=== PATIENT | male | born 1970 | race American Indian/Alaskan Native ===

== ENCOUNTER → 2020-03-13 09:07 | Outpatient (BNVA) | payer OTHER, SELFPAY | PROVIDERS: Visit Provider Internal Medicine | DX: G56.00 Carpal tunnel syndrome, unspecified upper limb (principal) | CPT/HCPCS: 99203 ==

== ENCOUNTER → 2020-03-20 08:46 | Outpatient (BNVA) | payer OTHER, SELFPAY | PROVIDERS: Visit Provider Internal Medicine | DX: G56.02 Carpal tunnel syndrome, left upper limb (principal) | CPT/HCPCS: 99213 ==

== ENCOUNTER → 2020-04-18 10:07 | Outpatient (BNVA) | payer OTHER, SELFPAY | PROVIDERS: Visit Provider Physician Assistant Medical | DX: G56.02 Carpal tunnel syndrome, left upper limb (principal) | CPT/HCPCS: 99213 ==

== ENCOUNTER → 2020-04-30 11:51 | Outpatient (BNVA) | payer OTHER, SELFPAY | PROVIDERS: PCP Internal Medicine; Visit Provider Internal Medicine | DX: G56.02 Carpal tunnel syndrome, left upper limb (principal) | CPT/HCPCS: 73110; 73130; 99214 ==

== ENCOUNTER 2020-05-12 11:00 | Outpatient (RCR) | payer OTHER, SELFPAY ==
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
--- NOTE | 2020-06-09 14:13 | MHC.OT.DC ---
[address] [phone] F: [phone] Occupational Therapy Discharge Note Provider: Regine Portillo Diagnosis: TRAUMATIC L CTS Date of Surgery: Date of Evaluation: 04/23/20 Date of Discharge: 06/09/20 Treatments to Date: 5 Cancellations to Date: No Shows to Date: 1 Discharge Status: Achieved Goals Improved Function Independent with HEP Patient Elected to Stop Discharge Summary: MR KNIGHT HAD PROGRESSED WELL WITH HIS OT GOALS DURING HIS OT RX SESSIONS. HE WAS MOTIVATED AND RECEPTIVE TO PATIENT EDUCATION. A CUSTOM ORTHOSIS WAS FABRICATED FOR JOINT PROTECTION. HE HAD EMERGING NERVE REGENERATION, YET AT TIME OF DISCHARGE HE CONTINUED TO REPORT SOME NUMBNESS IN THE L MIDDLE FINGER. HE WAS INDEPENDENT WITH HIS HEP AND IMPROVED HIS SHUTTLE FILLER STRENGTH. NO FURTHER OT WARRANTED AT THIS TIME. D/C OT SERVICES. Electronically Signed By: REGULO ROSS OTR/L Reviewed/agree with student documentation: N/A Therapist: Please Sign and return to therapist, thank you for your referral.
== END 2020-06-09 14:14 | disposition other institution (70) ==
LOC: HO.OT 11:00
PROVIDERS: PCP Internal Medicine; Visit Provider Physician Assistant Medical
DX: G56.02 Carpal tunnel syndrome, left upper limb (principal)
CPT/HCPCS: 29125; 97035; 97110; 97166

== ENCOUNTER → 2020-05-12 11:36 | Outpatient (BNVA) | payer OTHER, SELFPAY | PROVIDERS: PCP Internal Medicine; Visit Provider Physician Assistant | DX: G56.02 Carpal tunnel syndrome, left upper limb (principal) | CPT/HCPCS: 99213 ==

== ENCOUNTER 2020-05-22 07:21 | Outpatient (REF) | payer OTHER, SELFPAY ==
[2020-05-22 07:46] LABS: MANUAL DIFF FLAG NO
[2020-05-22 07:50] LABS: Basophils Percent Auto 0.6 % (0-2); Eosinophils Absolute Auto 0.1 X10*3/uL (0.0-0.4); Hematocrit 48.9 % (42-52); Hemoglobin 17.2 g/dl (14.0-18.0); Imm Gran Abs Auto 0.02 X10*3/uL (0.00-0.03); Imm Gran Pct Auto 0.4 % (0.0-0.4); Lymphocytes Absolute Auto 1.5 X10*3/uL (1.2-4.9); Lymphocytes Percent Auto 30.5 % (20-40); Mean Corpuscular HGB Conc 35.2 g/dl (31.0-36.0); Mean Corpuscular Hemoglobin 30.5 pg (27.0-33.0); Mean Corpuscular Volume 86.7 fL (80-98); Mean Platelet Volume 9.6 fL (9.4-12.4); Monocytes Absolute Auto 0.4 X10*3/uL (0.1-1.2); Monocytes Percent Auto 8.6 % (2-11); Neutrophils Absolute Auto 2.9 X10*3/uL (2.0-8.3); Neutrophils Percent Auto 57.9 % (45-73); Platelet Count 232 X10*3/uL (160-400); Red Blood Count 5.64 X10*6/uL (4.60-5.80); Red Cell Distribution Width 11.9 % (11.0-16.0)
[2020-05-22 08:01] LABS: Estimated Average Glucose 269 mg/dL
[2020-05-22 08:12] LABS: Alanine Aminotransferase 31 U/L (0-40); Albumin Level 4.1 g/dL (3.5-5.0); Alkaline Phosphatase 110 U/L (39-117); Anion Gap 12 (12-20); Aspartate Amino Transferase 17 U/L (5-37); Bilirubin Direct 0.2 mg/dL (0.0-0.5); Bilirubin Total 0.5 mg/dL (0.0-1.0); Blood Urea Nitrogen 14 mg/dL (9-16); Calcium 8.9 mg/dL (8.4-10.2); Carbon Dioxide 27 mmol/L (22-29); Chloride 102 mmol/L (96-108); Cholesterol 198 mg/dL; Estimated Glomerular Filt Rate > 60; Glucose Fasting 266 mg/dL (60-99); HDL Cholesterol 54 mg/dL; LDL Cholesterol Calculated 126 mg/dl; Potassium 4.2 mmol/l (3.3-5.1); Sodium 137 mmol/L (135-145); Total Protein 7.1 g/dL (6.5-8.0); Triglycerides 91 mg/dL
== END 2020-05-22 07:22 | disposition home or self-care (01) ==
LOC: HO.LAB 07:21
PROVIDERS: Visit Provider Nurse Practitioner Family
DX: Z00.00 Encounter for general adult medical examination without abnormal findings (principal)
CPT/HCPCS: 36415; 80053; 80061; 80076; 82248; 83036; 85025

== ENCOUNTER → 2020-05-28 09:23 | Outpatient (BNVA) | payer OTHER, SELFPAY | PROVIDERS: PCP Internal Medicine; Visit Provider Physician Assistant Medical | DX: G56.02 Carpal tunnel syndrome, left upper limb (principal) | CPT/HCPCS: 99213 ==

== ENCOUNTER → 2020-06-11 08:55 | Outpatient (BNVA) | payer OTHER, SELFPAY | PROVIDERS: PCP Internal Medicine; Visit Provider Physician Assistant Medical | DX: G56.02 Carpal tunnel syndrome, left upper limb (principal) | CPT/HCPCS: 99213 ==

== ENCOUNTER 2020-06-23 13:30 | Outpatient (REF) | payer OTHER, SELFPAY ==
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
== END 2020-06-23 13:31 | disposition home or self-care (01) ==
LOC: HO.MRI 13:30
PROVIDERS: Visit Provider Internal Medicine
DX: M25.532 Pain in left wrist (principal)
CPT/HCPCS: 73221

== ENCOUNTER 2020-06-25 08:07 | Outpatient (REF) | payer OTHER, SELFPAY ==
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
== END 2020-06-25 08:08 | disposition home or self-care (01) ==
LOC: HO.NEURO 08:07
PROVIDERS: Visit Provider Physician Assistant Medical
DX: G56.02 Carpal tunnel syndrome, left upper limb (principal)
CPT/HCPCS: 95885; 95910; 95913

== ENCOUNTER → 2020-07-02 10:15 | Outpatient (BNVA) | payer OTHER, SELFPAY | PROVIDERS: Visit Provider Orthopaedic Surgery | DX: G56.02 Carpal tunnel syndrome, left upper limb (principal); S63.8X2A Sprain of other part of left wrist and hand, initial encounter | CPT/HCPCS: 99202 ==

== ENCOUNTER 2020-07-24 11:46 | Day surgery (SDC) | payer OTHER, SELFPAY ==
[2020-07-23 09:41] VITALS: BMI 33.4
[2020-07-24 12:59] LABS: Glucose, Whole Blood 244 mg/dL (60-115)
[2020-07-24 13:03] VITALS: BP 132/89; PULSE 114; RESP 18; TEMP 36.6; O2SAT 95
[2020-07-24 14:43] VITALS: BP 134/88; PULSE 86; RESP 18; TEMP 36.7; O2SAT 97
--- NOTE | 2020-07-24 14:48 | MHC.SHP ---
Pre-Procedural Eval Section B Chief Complaint: carpal tunnel Allergies: Allergies Allergy/AdvReac Type Severity Reaction Status Date / Time aspirin [Aspirin] Allergy Unknown UNKNOWN Verified 07/02/20 10:55 lisinopril Allergy Unknown Cough Verified 07/02/20 10:55 penicillin V Allergy Unknown unknown Verified 07/02/20 10:55 Penicillins Allergy Unknown UNKNOWN Verified 07/02/20 10:55 Plan I have reviewed the history and physical and performed a pertinent physical examination on my patient. No changes have occurred unless specified.
--- NOTE | 2020-07-24 14:48 | W.PM.OPN ---
Operative Note Operative Note Date of Service: 07/24/20 Narrative: Preop diagnosis: 1. Left Carpal tunnel syndrome Postop diagnosis: 1. Left Carpal tunnel syndrome Procedure: 1. Left Carpal tunnel release Surgeon: Lilly Gross MD Anesthesia: local block using 1% lidocaine with epinephrine Findings: Thickened transverse carpal ligament. EBL: Less than 5 mL Specimens: None Complications: None Disposition: Brought to recovery room in stable condition Plan: Follow-up for 7-10 days for wound check and suture removal Indications: The patient is 50 years old, with left carpal tunnel syndrome that has been unresponsive to nonoperative management. The risks and benefits of operative treatment including but not limited to risk of damage to blood vessels, nerves, tendons, infection, persistent pain, persistent symptoms, or possible need for additional surgery were discussed with the patient and the patient wishes to proceed with surgery. Procedure: Once consent was obtained a local block was performed using a combination of 1% lidocaine with epinephrine. The patient was then brought back to the operating suite and placed on the operative table in supine position. A tourniquet was applied to the proximal aspect of the left upper extremity and the limb was prepped and draped in a standard surgical fashion. Once assured that we had a good block, a 1.5 cm longitudinal incision was made centered over the left carpal tunnel. The incision was made through the skin to the subcutaneous tissues using a #15 blade. Dissection was made down to the level of the transverse carpal ligament with care being taken to protect the palmar cutaneous nerve. Once the transverse carpal ligament was clearly visualized, a longitudinal incision was made in the transverse carpal ligament 1st using a #15 blade, then using tenotomy scissors under direct visualization. Care was taken to look for and protect the motor branch of the median nerve when seen in this area. Once satisfied with our carpal tunnel release the wound was copiously irrigated with normal saline and hemostasis was obtained with a brief period of local pressure. The skin edges were reapproximated with some 5.0 nylon suture material and a sterile dressing was applied. The patient appears to have tolerated the procedure well and with no complications. All digits were well vascularized at the conclusion of the case.
== END 2020-07-24 14:59 | disposition home or self-care (01) ==
PROVIDERS: PCP Internal Medicine; Visit Provider Orthopaedic Surgery
PROC: (CPT 64721; principal; 2020-07-24 13:10)
DX: G56.02 Carpal tunnel syndrome, left upper limb (principal); I10 Essential (primary) hypertension; E11.9 Type 2 diabetes mellitus without complications; Z79.84 Long term (current) use of oral hypoglycemic drugs; Z79.899 Other long term (current) drug therapy; Z88.0 Allergy status to penicillin; Z88.8 Allergy status to other drugs, medicaments and biological substances
CPT/HCPCS: 64721; 82947

== ENCOUNTER → 2020-08-04 09:56 | Outpatient (BNVA) | payer OTHER, SELFPAY | PROVIDERS: PCP Internal Medicine; Visit Provider Orthopaedic Surgery | DX: Z48.811 Encounter for surgical aftercare following surgery on the nervous system (principal); Z86.69 Personal history of other diseases of the nervous system and sense organs | CPT/HCPCS: 99212 ==

== ENCOUNTER 2020-09-05 08:48 | Outpatient (REF) | payer OTHER, SELFPAY ==
[2020-09-05 09:50] LABS: MANUAL DIFF FLAG NO
[2020-09-05 09:51] LABS: Appearance Urine CLEAR; Color Urine YELLOW; Glucose Urine UA 100 MG/DL (NEG); Leukocyte Esterase Urine NEG (NEG); Nitrite Urine NEG (NEG); Specific Gravity - Urine 1.025 (1.005-1.025); Urine Blood NEG (NEG); Urine Ketones NEG (NEG); Urine Protein NEG (NEG-TRACE)
[2020-09-05 09:56] LABS: Basophils Percent Auto 0.4 % (0-2); Eosinophils Absolute Auto 0.1 X10*3/uL (0.0-0.4); Eosinophils Percent Auto 1.8 % (0-4); Hematocrit 49.1 % (42-52); Imm Gran Abs Auto 0.02 X10*3/uL (0.00-0.03); Imm Gran Pct Auto 0.4 % (0.0-0.4); Lymphocytes Absolute Auto 1.4 X10*3/uL (1.2-4.9); Lymphocytes Percent Auto 25.9 % (20-40); Mean Corpuscular HGB Conc 34.6 g/dl (31.0-36.0); Mean Corpuscular Hemoglobin 30.2 pg (27.0-33.0); Mean Corpuscular Volume 87.2 fL (80-98); Mean Platelet Volume 9.7 fL (9.4-12.4); Monocytes Absolute Auto 0.4 X10*3/uL (0.1-1.2); Monocytes Percent Auto 7.4 % (2-11); Neutrophils Absolute Auto 3.5 X10*3/uL (2.0-8.3); Neutrophils Percent Auto 64.1 % (45-73); Platelet Count 295 X10*3/uL (160-400); Red Blood Count 5.63 X10*6/uL (4.60-5.80); Red Cell Distribution Width 12.1 % (11.0-16.0); White Blood Count 5.4 X10*3/uL (4.8-10.8)
[2020-09-05 10:24] LABS: Alanine Aminotransferase 32 U/L (0-40); Albumin Level 4.2 g/dL (3.5-5.0); Alkaline Phosphatase 94 U/L (39-117); Anion Gap 14 (12-20); Aspartate Amino Transferase 22 U/L (5-37); Bilirubin Total 0.8 mg/dL (0.0-1.0); Blood Urea Nitrogen 11 mg/dL (9-16); Carbon Dioxide 27 mmol/L (22-29); Chloride 101 mmol/L (96-108); Cholesterol 198 mg/dL; Estimated Glomerular Filt Rate > 60; Glucose Fasting 199 mg/dL (60-99); HDL Cholesterol 52 mg/dL; LDL Cholesterol Calculated 125 mg/dl; Potassium 4.7 mmol/L (3.3-5.1); Sodium 137 mmol/L (135-145); Total Protein 7.3 g/dL (6.5-8.0); Triglycerides 106 mg/dL
[2020-09-05 10:46] LABS: Estimated Average Glucose 217 mg/dL; Hemoglobin A1c % 9.2 %; TSH reflex Free T4 0.77 uIU/mL (0.32-4.0)
[2020-09-05 10:58] LABS: Creatinine Urine 186.01 mg/dL; Microalbum/Creatinine Ratio Ur 9.6 ug/mg cr
== END 2020-09-05 08:49 | disposition home or self-care (01) ==
LOC: HO.LAB 08:48
PROVIDERS: PCP Internal Medicine; Visit Provider Internal Medicine
DX: E11.65 Type 2 diabetes mellitus with hyperglycemia (principal); I10 Essential (primary) hypertension; E66.9 Obesity, unspecified
CPT/HCPCS: 36415; 80053; 80061; 81003; 82043; 83036; 84443; 85025

== ENCOUNTER 2021-08-21 07:47 | Outpatient (REF) | payer OTHER, SELFPAY ==
[2021-08-21 08:27] LABS: MANUAL DIFF FLAG NO
[2021-08-21 08:54] LABS: Basophils Percent Auto 0.3 % (0-2); Eosinophils Absolute Auto 0.2 X10*3/uL (0.0-0.4); Eosinophils Percent Auto 3.4 % (0-4); Hematocrit 49.8 % (42.0-52.0); Hemoglobin 17.1 g/dl (14.0-18.0); Imm Gran Abs Auto 0.02 X10*3/uL (0.00-0.03); Imm Gran Pct Auto 0.3 % (0.0-0.4); Lymphocytes Absolute Auto 1.2 X10*3/uL (1.2-4.9); Lymphocytes Percent Auto 20.7 % (20-40); Mean Corpuscular HGB Conc 34.3 g/dl (31.0-36.0); Mean Corpuscular Hemoglobin 29.6 pg (27.0-33.0); Mean Corpuscular Volume 86.3 fL (80.0-98.0); Mean Platelet Volume 9.7 fL (9.4-12.4); Monocytes Absolute Auto 0.5 X10*3/uL (0.1-1.2); Monocytes Percent Auto 8.4 % (2-11); Neutrophils Absolute Auto 3.9 x10*3/uL (2.0-8.3); Neutrophils Percent Auto 66.9 % (45-73); Platelet Count 254 X10*3/uL (160-400); Red Blood Count 5.77 X10*6/uL (4.60-5.80); Red Cell Distribution Width 11.8 % (11.0-16.0); White Blood Count 5.8 X10*3/uL (4.8-10.8)
[2021-08-21 09:12] LABS: Estimated Average Glucose 255 mg/dL; Hemoglobin A1c % 10.5 %
[2021-08-21 09:21] LABS: Alanine Aminotransferase 26 U/L (0-40); Alkaline Phosphatase 108 U/L (39-117); Anion Gap 10 (12-20); Aspartate Amino Transferase 18 U/L (5-37); Bilirubin Total 0.8 mg/dL (0.0-1.0); Blood Urea Nitrogen 11 mg/dL (9-16); Calcium 9.5 mg/dL (8.4-10.2); Carbon Dioxide 30 mmol/L (22-29); Chloride 101 mmol/L (96-108); Cholesterol 191 mg/dL; Estimated Glomerular Filt Rate > 60; Glucose Fasting 243 mg/dL (60-99); HDL Cholesterol 52 mg/dL; LDL Cholesterol Calculated 121 mg/dl; Sodium 136 mmol/L (135-145); Total Protein 7.1 g/dL (6.5-8.0); Triglycerides 94 mg/dL
[2021-08-21 09:43] LABS: TSH reflex Free T4 0.96 uIU/mL (0.32-4.0)
[2021-08-21 09:56] LABS: Appearance Urine CLEAR; Color Urine YELLOW; Glucose Urine UA 500 MG/DL (NEG); Leukocyte Esterase Urine NEG (NEG); Nitrite Urine NEG (NEG); PH 5.5 (5.0-8.0); Specific Gravity - Urine >= 1.030 (1.005-1.025); Urine Blood NEG (NEG); Urine Ketones 5 MG/DL (NEG); Urine Protein TRACE MG/DL (NEG-TRACE)
[2021-08-21 18:25] LABS: Creatinine Urine 302.09 mg/dL; Microalbum/Creatinine Ratio Ur 14.8 ug/mg cr
== END 2021-08-21 07:48 | disposition home or self-care (01) ==
LOC: HO.LAB 07:47
PROVIDERS: PCP Internal Medicine; Visit Provider Internal Medicine
DX: E11.65 Type 2 diabetes mellitus with hyperglycemia (principal); E66.9 Obesity, unspecified; K21.9 Gastro-esophageal reflux disease without esophagitis; I10 Essential (primary) hypertension
CPT/HCPCS: 36415; 80053; 80061; 81003; 82043; 83036; 84443; 85025

== ENCOUNTER 2022-02-18 09:30 | Outpatient (REF) | payer OTHER, SELFPAY ==
[2022-02-18 09:59] LABS: MANUAL DIFF FLAG NO
[2022-02-18 10:34] LABS: Basophils Percent Auto 0.5 % (0-2); Eosinophils Absolute Auto 0.1 X10*3/uL (0.0-0.4); Eosinophils Percent Auto 2.1 % (0-4); Hematocrit 50.5 % (42.0-52.0); Hemoglobin 17.9 g/dl (14.0-18.0); Imm Gran Abs Auto 0.02 X10*3/uL (0.00-0.03); Imm Gran Pct Auto 0.3 % (0.0-0.4); Lymphocytes Absolute Auto 0.8 X10*3/uL (1.2-4.9); Lymphocytes Percent Auto 12.8 % (20-40); Mean Corpuscular HGB Conc 35.4 g/dl (31.0-36.0); Mean Corpuscular Hemoglobin 30.8 pg (27.0-33.0); Mean Corpuscular Volume 86.8 fL (80.0-98.0); Mean Platelet Volume 9.9 fL (9.4-12.4); Monocytes Absolute Auto 0.6 X10*3/uL (0.1-1.2); Monocytes Percent Auto 9.4 % (2-11); Neutrophils Absolute Auto 4.4 x10*3/uL (2.0-8.3); Neutrophils Percent Auto 74.9 % (45-73); Platelet Count 235 X10*3/uL (160-400); Red Blood Count 5.82 X10*6/uL (4.60-5.80); Red Cell Distribution Width 11.5 % (11.0-16.0); White Blood Count 5.9 X10*3/uL (4.8-10.8)
[2022-02-18 11:20] LABS: Alanine Aminotransferase 23 U/L (0-40); Albumin Level 4.1 g/dL (3.5-5.0); Alkaline Phosphatase 115 U/L (39-117); Anion Gap 14 (12-20); Aspartate Amino Transferase 17 U/L (5-37); Bilirubin Total 0.6 mg/dL (0.0-1.0); Blood Urea Nitrogen 11 mg/dL (9-16); Carbon Dioxide 26 mmol/L (22-29); Chloride 102 mmol/L (96-108); Cholesterol 155 mg/dL; Estimated Glomerular Filt Rate > 60; Glucose Fasting 188 mg/dL (60-99); HDL Cholesterol 52 mg/dL; LDL Cholesterol Calculated 85 mg/dl; Potassium 4.2 mmol/L (3.3-5.1); Sodium 138 mmol/L (135-145); Total Protein 6.9 g/dL (6.5-8.0); Triglycerides 93 mg/dL
[2022-02-18 11:22] LABS: Appearance Urine Clear; Color Urine Yellow; Glucose Urine UA 250 mg/dL (Negative); Leukocyte Esterase Urine Negative (Negative); Nitrite Urine Negative (Negative); PH 5.5 (5.0-9.0); Specific Gravity - Urine 1.025 (1.005-1.025); Urine Blood Negative (Negative); Urine Ketones Trace mg/dL (Negative); Urine Protein Negative (Neg-Trace)
[2022-02-18 11:49] LABS: Prostate Specific Antigen 0.94 ng/mL (<0.05-4.0); TSH reflex Free T4 0.85 uIU/mL (0.32-4.0); Vitamin D 25-OH Total 18.6 ng/mL (>30)
[2022-02-18 12:02] LABS: Creatinine Urine 220.83 mg/dL
[2022-02-20 12:26] LABS: C Peptide 2.79 ng/mL (0.80-3.85)
[2022-02-23 20:02] LABS: Glutamic acid decarboxylase Ab <5 IU/mL (<5)
== END 2022-02-18 09:31 | disposition home or self-care (01) ==
LOC: HO.LAB 09:30
PROVIDERS: PCP Internal Medicine; Visit Provider Internal Medicine
DX: Z00.00 Encounter for general adult medical examination without abnormal findings (principal); Z12.5 Encounter for screening for malignant neoplasm of prostate; I10 Essential (primary) hypertension; E78.00 Pure hypercholesterolemia, unspecified; E11.9 Type 2 diabetes mellitus without complications; N40.0 Benign prostatic hyperplasia without lower urinary tract symptoms; E55.9 Vitamin D deficiency, unspecified
CPT/HCPCS: 36415; 80053; 80061; 81003; 82043; 82306; 84153; 84443; 84681; 85025; 86341

== ENCOUNTER 2022-02-20 13:37 | Emergency (ER) | payer OTHER, SELFPAY ==
--- NOTE | ~2022-02-20 | XR_ITS ---
EXAMINATION: XR CHEST CLINICAL INFORMATION: Cough for 3 days COMPARISON: None TECHNIQUE: Frontal view of the chest was obtained. FINDINGS: Normal symmetric lung volumes. No parenchymal consolidation. No pleural effusion. No pneumothorax. Cardiomediastinal silhouette and pulmonary vascularity are within normal limits. No acute osseous abnormalities. XR/XR chest 1V IMPRESSION: No acute findings
[2022-02-20 13:45] VITALS: BP 149/98; PULSE 90; TEMP 36.5; O2SAT 96; BMI 32.5
[2022-02-20 14:45] LABS: Influenza A PCR NEGATIVE (Negative); Influenza B PCR NEGATIVE (Negative); Resp Syncy Virus RNA Qual PCR NEGATIVE (Negative); SARS COV2 PCR INHOUSE NEGATIVE (Negative)
--- NOTE | 2022-02-20 15:41 | ED.URI ---
HPI - URI/Sore Throat General Chief Complaint: Upper Respiratory Symptoms Stated Complaint: cough body aches chest hurts Time Seen by Provider: 02/20/22 15:19 Source: patient and family Mode of arrival: ambulatory Limitations: no limitations History of Present Illness HPI Narrative: 52-year-old male came in for evaluation of coughing and diffuse chest pain with coughing. Patient's symptoms started 4 days ago, generalized body aches, coughing, chest soreness with coughing, white sputum produced with coughing. No sick contacts, no recent travel, patient is a smoker. Related Data Previous Rx's Medication Instructions Recorded Farxiga 10 mg tablet 10 mg PO QAM 90 days #90 tabs 02/03/22 (dapagliflozin) atorvastatin 10 mg tablet 10 mg PO BEDTIME #90 tabs 02/03/22 glipizide 5 mg tablet, extended 5 mg PO DAILY #90 tabs 02/03/22 release 24 hr losartan 50 mg tablet 50 mg PO DAILY #90 tabs 02/03/22 omeprazole 20 mg capsule,delayed 20 mg PO DAILY #90 caps 02/03/22 release albuterol sulfate 90 mcg/actuation 1 inh inhalation QID PRN shortness 02/20/22 aerosol inhaler of breath or wheezing #8.5 grams azithromycin 250 mg tablet See Rx Instructions PO .COMPLEX #6 02/20/22 (Zithromax Z-Nic) tabs prednisone 20 mg tablet 20 mg PO BID #10 tabs 02/20/22 Allergies Allergy/AdvReac Type Severity Reaction Status Date / Time aspirin [Aspirin] Allergy Unknown UNKNOWN Verified 02/03/22 17:18 lisinopril Allergy Unknown Cough Verified 02/03/22 17:18 penicillin V Allergy Unknown unknown Verified 02/03/22 17:18 Penicillins Allergy Unknown UNKNOWN Verified 02/03/22 17:18 metformin AdvReac Intermediate Diarrhea Verified 02/03/22 17:20 Review of Systems Review of Systems: All other systems are reviewed and are negative Constitutional: Reports as per HPI and Reports no additional constitutional complaints Eyes: Reports as per HPI and Reports no additional eye complaints Reports system reviewed and no additional complaints, except as documented Cardiovascular: Reports as per HPI and Reports no additional cardiovascular complaints Respiratory: Reports as per HPI and Reports no additional respiratory complaints Gastrointestinal: Reports as per HPI and Reports no additional gastrointestinal complaints Genitourinary: Reports no additional female genitourinary complaints Musculoskeletal: Reports no additional musculoskeletal complaints Skin/Breast: Reports system reviewed and no additional complaints, except as docu Psychiatric: Reports no additional psychiatric complaints Endocrine: Reports no additional endocrine complaints Hematologic/Lymphatic: Reports no additional hematologic/lymphatic complaints Allergic/Immunologic: Reports no additional allergic/immunologic complaints Reports system reviewed and no additional complaints, except as documented and Reports Abnormal speech present PMFSH Past Medical History Medical History Benign essential hypertension Diabetes mellitus GERD without esophagitis Obesity (BMI 30-39.9) Pure hypercholesterolemia Smoker Surgical History History of carpal tunnel surgery Family History Family History Mother Diabetes BP (high blood pressure) Brother Myocardial infarction, Onset Age: 41 Father No problems noted. Maternal Grandmother Cancer Sister No problems noted. Son In good health Son In good health Social History Social History Housing: Apartment Alcohol intake: current Alcohol intake frequency: a few times a week Patient Tobacco Use Status: Current everyday Tobacco user Cigarettes Per Day: 6 Second Hand Smoke Exposure: Yes Advance Directives: Yes Advance Directives on File: Yes Advance Directives Date on File: 07/24/20 Current occupational status: employed Cognitive needs: No Hearing needs: No Vision needs: Yes Physical Exam Vital Signs: Vital Signs: Last Vital Signs Temp 97.7 F 02/20/22 13:45 Pulse 90 02/20/22 13:45 BP 149/98 H 02/20/22 13:45 Pulse Ox 96 02/20/22 13:45 O2 Del Method 02/20/22 13:45 BMI result Body Mass Index 32.5 Vital signs have been reviewed as appeared to be correct. Blood pressure normal. Heart rate normal. Respiration rate normal. Temperature normal. Oxygen saturation normal. Appearance: Alert. Oriented X3. No acute distress. Head: Normal external exam. Normocephalic. Atraumatic. No Duran signs noted. No raccoon eyes noted Eyes: PERRLA. EOMI. Conjunctiva and sclera normal. Eyelids normal. ENT: TM's Normal. Pharynx normal. Uvula midline. Moist mucous membranes. No trismus noted. No drooling noted. No muffled voice noted. Neck: Normal inspection. Neck supple. FROM. No adenopathy. Thyroid Normal. No meningeal signs. No neck mass noted. CVS: Normal heart rate and rhythm. Heart sound normal. No murmurs noted. Pulses normal throughout. Respiratory: No respiratory distress. Painless inspiration. Breath sounds normal. Diffuse expiratory wheezing with prolonged expiration. Chest nontender. No accessory muscle usage noted or decreased air movement noted. Abdomen: Soft and nontender. Bowel sounds normal in all 4 quadrants. No distention noted. No organomegaly noted. No visible injury noted. Back: No CVA tenderness. Full range of motion noted. Skin: Skin warm and dry. Normal skin color. Normal skin turgor. No rashes/lesions/lacerations noted. Extremities: No lower extremity edema. Extremities exhibit normal range of motion. Extremities nontender. Neuro: Oriented X 3. Cranial nerve exam: II-XII are grossly intact No motor deficit. No sensory deficit. Reflexes normal. Course Course Course Narrative: 52-year-old male smoker came in with 4 days of coughing and chest tightness physical exam and chest x-ray suggesting acute bronchitis. Will start the patient on Z-Nic/prednisone/bronchodilator. MDM - URI/Sore Throat Lab Data Labs: Lab Results 02/20/22 Range/Units 13:51 Influenza Type A (PCR) NEGATIVE (Negative) Influenza Type B (PCR) NEGATIVE (Negative) RSV RNA Qual (PCR) NEGATIVE (Negative) SARS-CoV-2 RNA (RT-PCR) NEGATIVE (Negative) Discharge Plan Discharge Clinical Impression: Bronchitis Patient Disposition: Home, Self-Care Instructions: Acute Bronchitis (ED) Prescriptions: New azithromycin [Zithromax Z-Nic] 250 mg tablet See Rx Instructions .ROUTE .COMPLEX Qty: 6 0RF Rx Instructions: For 250 mg dose pack: take 500 mg today (day 1), then 250 mg for 4 days (days 2-5) prednisone 20 mg tablet 20 mg PO BID Qty: 10 0RF albuterol sulfate 90 mcg/actuation HFA aerosol inhaler 1 inh inhalation QID PRN (Reason: shortness of breath or wheezing) Qty: 8.5 0RF No Action atorvastatin 10 mg tablet 10 mg PO BEDTIME Qty: 90 1RF losartan 50 mg tablet 50 mg PO DAILY Qty: 90 1RF omeprazole 20 mg capsule,delayed release(DR/EC) 20 mg PO DAILY Qty: 90 1RF glipizide 5 mg tablet extended release 24hr 5 mg PO DAILY Qty: 90 1RF Farxiga 10 mg tablet 10 mg PO QAM 90 Days Qty: 90 1RF Referrals: Gregorio Bhatt MD [Primary Care Provider] -
== END 2022-02-20 15:48 | disposition home or self-care (01) ==
PROVIDERS: Emergency Provider Emergency Medicine; PCP Internal Medicine
DX: J40 Bronchitis, not specified as acute or chronic (principal); Z20.822 Contact with and (suspected) exposure to COVID-19; I10 Essential (primary) hypertension; E11.9 Type 2 diabetes mellitus without complications; E78.00 Pure hypercholesterolemia, unspecified; F17.210 Nicotine dependence, cigarettes, uncomplicated; Z79.02 Long term (current) use of antithrombotics/antiplatelets; Z79.899 Other long term (current) drug therapy
CPT/HCPCS: 0241U; 71045; 99282; 99283

== ENCOUNTER 2022-04-26 20:31 | Emergency (ER) | payer OTHER, SELFPAY ==
--- NOTE | ~2022-04-26 | XR_ITS ---
EXAMINATION: CHEST 2 VIEWS CLINICAL INFORMATION: cough, fever . COMPARISON: 02/20/2022. TECHNIQUE: PA and lateral views of the chest obtained. FINDINGS: The lungs are well expanded. No focal infiltrate, effusion, edema, or pneumothorax. Cardiac and mediastinal silhouettes are within normal limits for technique. No acute bony abnormality seen XR/XR chest 2V IMPRESSION: No evidence of acute disease
[2022-04-26 20:57] VITALS: BP 128/79; PULSE 93; RESP 18; TEMP 38.2; O2SAT 97; BMI 32.5
[2022-04-26 22:22] LABS: COVID-19 Test Negative (Negative); IDNOW Serial# 16C4AD1C; IDNOW Serial# BCCEAD1C; Influenza A Positive (Negative); Influenza B2 Negative (Negative)
[2022-04-26] MEDS: Acetaminophen 325 MG TABLET 650 MG PO (23:39)
--- NOTE | 2022-04-27 00:11 | ED_ITS ---
HPI - General Adult General Chief complaint: Fever Stated complaint: sob,weak,fever,coughing Time Seen by Provider: 04/26/22 23:46 History of Present Illness HPI narrative: Patient complains of fever body aches headache and cough all beginning today, denies any shortness of breath, no chest pain no vomiting Related Data Previous Rx's Medication Instructions Recorded Farxiga 10 mg tablet 10 mg PO QAM 90 days #90 tabs 02/03/22 (dapagliflozin) atorvastatin 10 mg tablet 10 mg PO BEDTIME #90 tabs 02/03/22 glipizide 5 mg tablet, extended 5 mg PO DAILY #90 tabs 02/03/22 release 24 hr losartan 50 mg tablet 50 mg PO DAILY #90 tabs 02/03/22 omeprazole 20 mg capsule,delayed 20 mg PO DAILY #90 caps 02/03/22 release albuterol sulfate 90 mcg/actuation 1 inh inhalation QID PRN shortness 02/20/22 aerosol inhaler of breath or wheezing #8.5 grams azithromycin 250 mg tablet See Rx Instructions PO .COMPLEX #6 02/20/22 (Zithromax Z-Nic) tabs prednisone 20 mg tablet 20 mg PO BID #10 tabs 02/20/22 acetaminophen 500 mg tablet 1,000 mg PO QID PRN pain #30 tabs 04/27/22 ibuprofen 600 mg tablet 600 mg PO Q6H PRN fever or pain 04/27/22 #20 tabs oseltamivir 75 mg capsule (Tamiflu) 75 mg PO Q12H 5 days #10 caps 04/27/22 oxycodone 5 mg tablet 5 mg PO Q6H PRN pain #10 tabs 04/27/22 Allergies Allergy/AdvReac Type Severity Reaction Status Date / Time aspirin [Aspirin] Allergy Unknown UNKNOWN Verified 02/03/22 17:18 lisinopril Allergy Unknown Cough Verified 02/03/22 17:18 penicillin V Allergy Unknown unknown Verified 02/03/22 17:18 Penicillins Allergy Unknown UNKNOWN Verified 02/03/22 17:18 metformin AdvReac Intermediate Diarrhea Verified 02/03/22 17:20 Review of Systems Review of Systems: Positive for fever body aches fatigue and cough as well as a headache Negatives are no dizziness no fainting no feeling faint no confusion no stiff neck no abrupt onset headache no nausea vomiting no diarrhea no numbness weakness or tingling no chest pain no shortness of breath no difficulty swallowing no sore throat no abdominal pain no nausea vomiting or diarrhea no dysuria no skin rash Yes all other systems are reviewed and are negative FORMERLY [facility] Past Medical History Source: nursing notes reviewed Medical History Benign essential hypertension Diabetes mellitus GERD without esophagitis Obesity (BMI 30-39.9) Pure hypercholesterolemia Smoker Surgical History History of carpal tunnel surgery Family History Family History Mother Diabetes BP (high blood pressure) Brother Myocardial infarction, Onset Age: 41 Father No problems noted. Maternal Grandmother Cancer Sister No problems noted. Son In good health Son In good health Social History Social History Housing: Apartment Alcohol intake: current Alcohol intake frequency: a few times a week Patient Tobacco Use Status: Current everyday Tobacco user Cigarettes Per Day: 6 Second Hand Smoke Exposure: Yes Advance Directives: No Advance Directives Date on File: 07/24/20 Current occupational status: employed Cognitive needs: No Hearing needs: No Vision needs: Yes Physical Exam ED Vital Signs: Vital Signs - 24 hr 04/26/22 20:57 Temperature 100.7 F H Pulse Rate 93 Respiratory Rate 18 Blood Pressure 128/79 Pulse Oximetry 97 Oxygen Delivery Method Room Air BMI result Body Mass Index 32.5 General appearance is no acute distress The eyes anicteric no pallor no redness no discharge The nose no sinus tenderness The pharynx is clear without redness swelling or exudate membranes are moist Neck is supple Chest clear to auscultation bilateral Heart no murmur Abdomen soft nontender Extremities full range of motion x4 no edema no calf tenderness or swelling Skin no rash Course Course Course Narrative: Chest x-ray was normal as was physical exam, oxygen saturation 97 respiratory rate 16, lungs were clear Patient was positive for flu and with a history of diabetes i started Tamiflu as it has only been less than a day of symptoms Patient tolerates p.o. and was discharged from hospital Medications Administered Discontinued Medications Generic Name Dose Route Start Last Admin Trade Name Freq PRN Reason Stop Dose Admin Acetaminophen 650 mg 04/26/22 23:32 04/26/22 23:39 Acetaminophen 325 Mg Tablet PO 04/26/22 23:33 650 mg ONCE ONE Administration Oseltamivir Phosphate 75 mg 04/27/22 00:11 04/27/22 00:20 Oseltamivir Phosphate 75 Mg Capsule PO 04/27/22 00:12 75 mg ONCE ONE Administration Oxycodone HCl 5 mg 04/27/22 00:11 04/27/22 00:20 Oxycodone Hcl Immed Release 5 Mg Tablet PO 04/27/22 00:12 5 mg ONCE ONE Administration Medical Decision Making Lab Data MDM Lab Attestation statement: I reviewed the patient's lab results. Labs: Lab Results 04/26/22 04/26/22 Range/Units 21:47 21:47 COVID-19 (DAYAN) Negative (Negative) COVID-19 Clin Com See Note Influenza Type A (SUSHILA) Positive A (Negative) Influenza Type B (SUSHILA) Negative (Negative) Influenza A & B Note See Note Discharge Plan Discharge Clinical Impression: Influenza Patient Disposition: Home, Self-Care Additional Instructions: Testing was positive for the flu Chest x-ray was normal Lungs were clear and vital signs were okay Tamiflu was prescribed for the flu, but does not cure at, but it may relieve symptoms and shorten the course of illness Use Tylenol and/or Motrin for body aches or fever, if body aches are bad you can use the oxycodone Return any time for difficulty breathing, vomiting dehydration any worse condition or any concerns Prescriptions: New oseltamivir [Tamiflu] 75 mg capsule 75 mg PO Q12H 5 Days Qty: 10 0RF acetaminophen 500 mg tablet 1,000 mg PO QID PRN (Reason: pain) Qty: 30 0RF ibuprofen 600 mg tablet 600 mg PO Q6H PRN (Reason: fever or pain) Qty: 20 0RF oxycodone 5 mg tablet 5 mg PO Q6H PRN (Reason: pain) Qty: 10 0RF Rx Instructions: Partial Fill upon patient request. No Action azithromycin [Zithromax Z-Nic] 250 mg tablet See Rx Instructions .ROUTE .COMPLEX Qty: 6 0RF Rx Instructions: For 250 mg dose pack: take 500 mg today (day 1), then 250 mg for 4 days (days 2-5) prednisone 20 mg tablet 20 mg PO BID Qty: 10 0RF albuterol sulfate 90 mcg/actuation HFA aerosol inhaler 1 inh inhalation QID PRN (Reason: shortness of breath or wheezing) Qty: 8.5 0RF atorvastatin 10 mg tablet 10 mg PO BEDTIME Qty: 90 1RF losartan 50 mg tablet 50 mg PO DAILY Qty: 90 1RF omeprazole 20 mg capsule,delayed release(DR/EC) 20 mg PO DAILY Qty: 90 1RF glipizide 5 mg tablet extended release 24hr 5 mg PO DAILY Qty: 90 1RF Farxiga 10 mg tablet 10 mg PO QAM 90 Days Qty: 90 1RF Stand Alone Forms: Work/School Release Interventions: ED Discharge Assessment Last Done: 04/27/22 00:25 Discharge Date/Time: 04/27/22 00:25
[2022-04-27] MEDS: oxyCODONE HCl Immed Release 5 MG TABLET PO (00:20)
[2022-04-27] MEDS: Oseltamivir Phosphate 75 MG CAPSULE PO (00:20)
[2022-04-27 00:25] VITALS: TEMP 37
== END 2022-04-27 00:25 | disposition home or self-care (01) ==
PROVIDERS: Emergency Provider Internal Medicine; PCP Internal Medicine
DX: J10.1 Influenza due to other identified influenza virus with other respiratory manifestations (principal); R06.02 Shortness of breath; R50.9 Fever, unspecified; Z20.822 Contact with and (suspected) exposure to COVID-19; Z79.899 Other long term (current) drug therapy
CPT/HCPCS: 71046; 87502; 87635; 99283

== ENCOUNTER → 2022-06-16 10:17 | Outpatient (BNVA) | payer OTHER, SELFPAY | PROVIDERS: PCP Internal Medicine; Visit Provider Physician Assistant | DX: Z13.89 Encounter for screening for other disorder (principal) ==

== ENCOUNTER 2022-09-02 09:20 | Outpatient (REF) | payer OTHER, SELFPAY ==
--- NOTE | ~2022-09-02 | XR_ITS ---
EXAMINATION: XR ABDOMEN WITH DECUBITUS VIEWS CLINICAL INDICATION: Left lower quadrant pain. COMPARISON: CT abdomen and pelvis dated 05/22/2012; lumbar spine radiographs dated 10/25/2012. TECHNIQUE: 2 AP views of the abdomen and pelvis are submitted. FINDINGS: The bowel gas pattern is normal, with no evidence of ileus or obstruction. No unusual soft tissue calcifications are noted. There is a large right phlebolith, which is unchanged from 10/25/2012. No acute osseous abnormality is seen. There is a mild lumbar levoscoliosis. 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 XR/XR abdomen w decubitus IMPRESSION: Unremarkable examination.
== END 2022-09-02 09:21 | disposition home or self-care (01) ==
LOC: HO.XRAY 09:20
PROVIDERS: PCP Internal Medicine; Visit Provider Internal Medicine
DX: R10.32 Left lower quadrant pain (principal)
CPT/HCPCS: 74021

== ENCOUNTER 2023-01-18 09:24 | Day surgery (SDC) | payer OTHER, SELFPAY ==
[2023-01-14 08:01] VITALS: BMI 33.3
--- NOTE | 2023-01-17 09:18 | P.CONAN_ITS ---
Documented by User: Susan Cochran NP 01/17/23 09:19 HPI - Anesthesia Eval Consult details Narrative: 53yo M for Colonoscopy PMFSH Active Problems Active Problems: All Active Problems (Updated 06/16/22 @ 11:10 by Marija Horne PA-C) Vitamin D deficiency (Acute) Left lower quadrant abdominal pain (Acute) Smoker (Acute) Colon cancer screening (Acute) Pure hypercholesterolemia (Acute) Annual physical exam (Acute) GERD without esophagitis (Acute) Left scapholunate ligament tear (Acute) Carpal tunnel syndrome of left wrist (Acute) Obesity (BMI 30-39.9) (Acute) Benign essential hypertension (Acute) Diabetes mellitus (Acute) Past Medical History Medical History Vitamin D deficiency Smoker Pure hypercholesterolemia GERD without esophagitis Obesity (BMI 30-39.9) Benign essential hypertension Diabetes mellitus Family History Family History Mother Diabetes BP (high blood pressure) Brother Myocardial infarction, Onset Age: 41 Father No problems noted. Maternal Grandmother Cancer Sister No problems noted. Son In good health Son In good health Surgical History Surgical History History of carpal tunnel surgery Social History Social History Housing: Apartment Alcohol intake: current Alcohol intake frequency: a few times a month Patient Tobacco Use Status: Current everyday Tobacco user Cigarettes Per Day: 5 e-Cigarette/Vaping Use: Never Used Second Hand Smoke Exposure: Yes Are you DNR?: No Advance Directives: No Advance Directives Information Provided: Yes Advance Directives Date on File: 07/24/20 Nutrition Risks: No Nutritional Risk service: No Current occupational status: employed Current occupational exposures/hazards: No Cognitive needs: No Hearing needs: No Vision needs: Yes Meds Allergies Allergy/AdvReac Type Severity Reaction Status Date / Time aspirin [Aspirin] Allergy Unknown UNKNOWN Verified 10/01/22 15:54 lisinopril Allergy Unknown Cough Verified 10/01/22 15:54 penicillin V Allergy Unknown unknown Verified 10/01/22 15:54 Penicillins Allergy Unknown UNKNOWN Verified 10/01/22 15:54 metformin AdvReac Intermediate Diarrhea Verified 10/01/22 15:54 Exam Exam Date and Time: January 17, [id number] Height,Weight and Vital Signs: Height 5 ft 8 in Weight 99.337 kg Assessment and Plan Assessment Anesthesia Assessment: Chart Reviewed Documented by User: Negin Bello MD 01/18/23 10:35 [facility] Active Problems Active Problems: All Active Problems (Updated 01/18/23 @ 10:15 by Negin Bello MD) Vitamin D deficiency (Acute) Left lower quadrant abdominal pain (Acute) Smoker (Acute) Colon cancer screening (Acute) Pure hypercholesterolemia (Acute) Annual physical exam (Acute) GERD without esophagitis (Acute) Left scapholunate ligament tear (Acute) Carpal tunnel syndrome of left wrist (Acute) Obesity (BMI 30-39.9) (Acute) Benign essential hypertension (Acute) Diabetes mellitus (Acute) Snores but no sleep test. Awaiting evaluation Screening colonoscopy Past Medical History Medical History Vitamin D deficiency Smoker Pure hypercholesterolemia GERD without esophagitis Obesity (BMI 30-39.9) Benign essential hypertension Diabetes mellitus Family History Family History Mother Diabetes BP (high blood pressure) Brother Myocardial infarction, Onset Age: 41 Father No problems noted. Maternal Grandmother Cancer Sister No problems noted. Son In good health Son In good health Family history of problems with anesthesia: No Surgical History Surgical History History of carpal tunnel surgery History of Problems with Anesthesia: No Social History Social History Housing: Apartment Alcohol intake: current Alcohol intake frequency: a few times a month Patient Tobacco Use Status: Current everyday Tobacco user Cigarettes Per Day: 5 e-Cigarette/Vaping Use: Never Used Second Hand Smoke Exposure: Yes Are you DNR?: No Advance Directives: No Advance Directives Information Provided: Yes Advance Directives Date on File: 07/24/20 Nutrition Risks: No Nutritional Risk service: No Current occupational status: employed Current occupational exposures/hazards: No Cognitive needs: No Hearing needs: No Vision needs: Yes Meds Allergies Allergy/AdvReac Type Severity Reaction Status Date / Time aspirin [Aspirin] Allergy Unknown UNKNOWN Verified 10/01/22 15:54 lisinopril Allergy Unknown Cough Verified 10/01/22 15:54 penicillin V Allergy Unknown unknown Verified 10/01/22 15:54 Penicillins Allergy Unknown UNKNOWN Verified 10/01/22 15:54 metformin AdvReac Intermediate Diarrhea Verified 10/01/22 15:54 Exam Height,Weight and Vital Signs: Height 5 ft 8 in Weight 99.337 kg Vital Signs Temp Pulse Resp BP Pulse Ox O2 Del Method 01/18/23 09:49 96.5 F L 82 20 149/83 H 98 Room Air Pertinent Lab Results Pertinent Lab Results: Lab Results 01/18/23 Range/Units 09:44 POC Glucose 177 H (60-115) mg/dL Airway Mallampati Class: III TM Dist: >3cm Neck ROM: Full Loose/Missing/Broken Teeth: Yes (Broken tooth top left back) Heart: RRR Lungs: CTAB Assessment and Plan Assessment Anesthesia Assessment: Anesthesia Plan Discussed Final Anesthetic Review Family History of Problems with Anesthesia: No History of Problems with Anesthesia: No NPO: Yes ASA Class: III Final Preanesthetic Review: No Changes in Pt Med Stat, Meds/Allgs Chart Reviewed, Consent Obtained/Reviewed and Anes Risks/Benef Reviewed Patient Risk: Intermediate Procedure Risk: Low Assessment/Block/Sedation in SS: Assess/Block/Sedation-SS Anesthetic Plan Anesthetic Plan: MAC: Disposition: Standard PACU
[2023-01-18 09:48] LABS: Glucose, Whole Blood 177 mg/dL (60-115)
[2023-01-18 09:49] VITALS: BP 149/83; PULSE 82; RESP 20; TEMP 35.8; O2SAT 98
[2023-01-18] MEDS: Lactated Ringers 1,000 ML 100 ML IVCONT (10:00)
--- NOTE | 2023-01-18 12:22 | P.HPSUR_ITS ---
Pre-Procedural Eval Section A Date of Service: 01/18/23 Section B Chief Complaint: Encounter for screening for malignant neoplasm Relevant Family History (Specify if Yes): No Relevant Social History: Tobacco Use Present Medications: see Short Stay Collaborative assessment Medical History: Significant History (Vitamin D deficiency Smoker Pure hypercholesterolemia GERD without esophagitis Obesity (BMI 30-39.9) Benign essential hypertension Diabetes mellitus) History of Previous Operations: Relevant previous surgery/procedure and date(s) (History of carpal tunnel surgery) Allergies: Allergies Allergy/AdvReac Type Severity Reaction Status Date / Time aspirin [Aspirin] Allergy Unknown UNKNOWN Verified 10/01/22 15:54 lisinopril Allergy Unknown Cough Verified 10/01/22 15:54 penicillin V Allergy Unknown unknown Verified 10/01/22 15:54 Penicillins Allergy Unknown UNKNOWN Verified 10/01/22 15:54 metformin AdvReac Intermediate Diarrhea Verified 10/01/22 15:54 Review of Systems Sugical H&P ROS: Negative: Constitution, Cardiovascular, Respiratory, Ne urological, Psychiatric, Hem-Onc, Allergic/Immunologic, Gastrointestinal, Genitourinary, Musculoskeletal, Integumentary, Endocrine and Eyes/Ears/Nose/Throat Exam Surgical H&P Exam: Normal: HEENT, Normal: Heart, Normal: Lungs, Normal: Extremities, Normal: Abdomen, Normal: Skin and Normal: Neurological Plan Diagnosis/Plan: Unchanged I have reviewed the history and physical and performed a pertinent physical examination on my patient. No changes have occurred unless specified. Time Spent With Patient Time: Total time managing care of this patient today ____ minutes.
--- NOTE | 2023-01-18 12:23 | W.PM.OPN ---
Operative Note Operative Note Date of Service: 01/18/23 Narrative: Operative Information Procedure Description: EGD, Colonoscopy Indication: GERD, screening Anesthesia: MAC FLEXIBLE TRANSORAL UPPER GASTROINTESTINAL ENDOSCOPY AND COLONOSCOPY PROCEDURE NOTE UPPER ENDOSCOPY Consent: Indications for the procedure and potential complications of bleeding, perforation, reaction to medications and missed diagnosis were discussed with the patient and informed consent was obtained. Instrument: Olympus GIF H 190 J mid size upper endoscope Monitoring: Vital signs and clinical assessment, continuous EKG monitoring, Pulse oximetry, Carbon Dioxide monitoring and blood pressure monitoring were done throughout the procedure. Procedure: The patient was placed in the left lateral decubitis position and pre-procedure medications were administered and a bite block was placed. The endoscope was inserted into the mouth and advanced under direct vision to the third part of duodenum. A careful inspection was made as the upper endoscope was withdrawn including a retroflexed examination of the proximal stomach; Findings and interventions are described below. Findings: Larynx:normal Esophagus: GE junction at 38 cm, diaphragm hiatus at 40 cm, consistent with 2 cm sliding hiatal hernia, schatzki ring noted, with mild esophagitis and bogginess of GEJ, bx taken Stomach: Patchy erythema with granularity. Biopsies were obtained. Grade 2 flap valve on retroflexed examination of the cardia. Duodenum: Mild bulbar duodenitis, bx taken Intervention: Biopsies as noted above COLONOSCOPY Instrument: Olympus variable stiffness ADULT scope 190L Colonoscopy Monitoring: Vital signs and clinical assessment, continuous EKG monitoring, Pulse oximetry, Carbon Dioxide monitoring and blood pressure monitoring were done throughout the procedure. Colon withdrawal time was 12 minutes. Procedure: The patient was placed in the left lateral decubitis position and pre-procedure medications were administered. After a digital rectal examination of the ano-rectum, the video colonoscope was inserted into the rectum and advanced through the colon to the cecum/TI. The colonoscope was slowly withdrawn in a retrograde panoramic fashion and the colon mucosa was carefully examined including a retroflexed view of the rectum. Findings and interventions are described below. Procedure Difficulty:easy Findings: Terminal Ileum-normal Cecum:normal Ascending Colon: normal Transverse Colon -normal Descending Colon:normal Sigmoid Colon: normal Rectum: Retroflexion with small internal hemorrhoids, grade I, x2 sessile polyps 8-10 mm removed with cold snare Anorectum - normal Colon preparation: Coolin Bowel Preparation Scale Right colon; 2 Transverse colon: 2 Left colon;1- 2 (0 = Unprepared colon segment with mucosa not seen due to solid stool that cannot be cleared. 1 = Portion of mucosa of the colon segment seen, but other areas of the colon segment not well seen due to staining, residual stool and/or opaque liquid. 2 = Minor amount of residual staining, small fragments of stool and/or opaque liquid, but mucosa of colon segment seen well. 3 = Entire mucosa of colon segment seen well with no residual staining, small fragments of stool or opaque liquid) Impression and Post Procedure Diagnosis: Endoscopy Findings: gastritis esophagitis hiatal hernia schatzki ring duodenitis Colonoscopy Findings: polyps internal hemorrhoids Plan: Await Pathology results Repeat Colonoscopy in 5 years due to fair left sided prep or earlier if clinically indicated High fiber diet leaflet avoid straining at stool, epsom salts and sitz bath, anusol supps or cream Above findings were reviewed with the patient and relevant handouts were provided if indicated.
[2023-01-18 13:18] VITALS: BP 134/96; PULSE 94; RESP 16; TEMP 36.1; O2SAT 97
[2023-01-18 13:33] VITALS: BP 139/94; PULSE 85; RESP 16; O2SAT 97
[2023-01-18 13:46] VITALS: BP 121/90; PULSE 93; RESP 16; TEMP 36.1; O2SAT 95
== END 2023-01-18 14:06 | disposition home or self-care (01) ==
PROVIDERS: PCP Internal Medicine; Visit Provider Internal Medicine Gastroenterology
PROC: (CPT 45385; principal; 2023-01-18 12:40)
DX: Z12.11 Encounter for screening for malignant neoplasm of colon (principal); K62.1 Rectal polyp; K64.0 First degree hemorrhoids; K22.2 Esophageal obstruction; K20.80 Other esophagitis without bleeding; K29.80 Duodenitis without bleeding; K22.89 Other specified disease of esophagus; K44.9 Diaphragmatic hernia without obstruction or gangrene; E11.9 Type 2 diabetes mellitus without complications; I10 Essential (primary) hypertension; E78.00 Pure hypercholesterolemia, unspecified; K21.9 Gastro-esophageal reflux disease without esophagitis; E66.9 Obesity, unspecified; Z68.31 Body mass index [BMI] 31.0-31.9, adult; F17.210 Nicotine dependence, cigarettes, uncomplicated; Z79.84 Long term (current) use of oral hypoglycemic drugs; Z79.899 Other long term (current) drug therapy
CPT/HCPCS: 45385; 43239; 82947; 88305; 88342; J1885

== ENCOUNTER → 2023-01-18 09:24 | Outpatient (BNV) | payer OTHER, SELFPAY | PROVIDERS: PCP Internal Medicine; Visit Provider Internal Medicine Gastroenterology | DX: Z12.11 Encounter for screening for malignant neoplasm of colon (principal); K21.9 Gastro-esophageal reflux disease without esophagitis; K20.90 Esophagitis, unspecified without bleeding; K29.80 Duodenitis without bleeding; D12.8 Benign neoplasm of rectum; K64.0 First degree hemorrhoids | CPT/HCPCS: 43239; 45385 ==

== ENCOUNTER 2023-07-30 07:09 | Outpatient (REF) | payer OTHER, SELFPAY ==
[2023-07-30 07:32] LABS: MANUAL DIFF FLAG NO
[2023-07-30 07:49] LABS: Basophils Percent Auto 0.5 % (0-2); Eosinophils Absolute Auto 0.2 X10*3/uL (0.0-0.4); Eosinophils Percent Auto 3.2 % (0-4); Hematocrit 46.8 % (42.0-52.0); Hemoglobin 16.9 g/dl (14.0-18.0); Imm Gran Abs Auto 0.04 X10*3/uL (0.00-0.03); Imm Gran Pct Auto 0.6 % (0.0-0.4); Lymphocytes Absolute Auto 1.3 X10*3/uL (1.2-4.9); Lymphocytes Percent Auto 20.2 % (20-40); Mean Corpuscular HGB Conc 36.1 g/dl (31.0-36.0); Mean Corpuscular Hemoglobin 30.6 pg (27.0-33.0); Mean Corpuscular Volume 84.8 fL (80.0-98.0); Mean Platelet Volume 9.1 fL (9.4-12.4); Monocytes Absolute Auto 0.5 X10*3/uL (0.1-1.2); Monocytes Percent Auto 7.7 % (2-11); Neutrophils Absolute Auto 4.4 x10*3/uL (2.0-8.3); Neutrophils Percent Auto 67.8 % (45-73); Platelet Count 263 X10*3/uL (160-400); Red Blood Count 5.52 X10*6/uL (4.60-5.80); Red Cell Distribution Width 11.8 % (11.0-16.0); White Blood Count 6.5 X10*3/uL (4.8-10.8)
[2023-07-30 07:58] LABS: Estimated Average Glucose 212 mg/dL
[2023-07-30 08:04] LABS: Appearance Urine Clear; Color Urine Yellow; Glucose Urine UA 250 mg/dL (Negative); Leukocyte Esterase Urine Negative (Negative); Nitrite Urine Negative (Negative); Specific Gravity - Urine >= 1.030 (1.005-1.025); Urine Blood Negative (Negative); Urine Ketones Negative (Negative); Urine Protein Negative (Neg-Trace)
[2023-07-30 08:13] LABS: Alanine Aminotransferase 21 U/L (0-40); Albumin Level 3.9 g/dL (3.5-5.0); Alkaline Phosphatase 114 U/L (39-117); Anion Gap 12 (12-20); Aspartate Amino Transferase 14 U/L (5-37); Bilirubin Total 0.4 mg/dL (0.0-1.0); Blood Urea Nitrogen 14 mg/dL (9-16); Carbon Dioxide 27 mmol/L (22-29); Chloride 105 mmol/L (96-108); Cholesterol 181 mg/dL (<200); Estimated Glomerular Filt Rate > 60; Glucose Fasting 211 mg/dL (60-99); HDL Cholesterol 51 mg/dL (>40); LDL Cholesterol Calculated 111 mg/dL (<100); Potassium 3.6 mmol/L (3.3-5.1); Sodium 140 mmol/L (135-145); Total Protein 7.1 g/dL (6.5-8.0); Triglycerides 97 mg/dL (<150)
[2023-07-30 08:30] LABS: TSH reflex Free T4 1.08 uIU/mL (0.32-4.0); Vitamin D 25-OH Total 13.5 ng/mL (>30)
[2023-07-30 08:40] LABS: Creatinine Urine 216.95 mg/dL; Microalbum/Creatinine Ratio Ur 5.9 ug/mg cr (<30)
== END 2023-07-30 07:10 | disposition home or self-care (01) ==
LOC: HO.LAB 07:09
PROVIDERS: PCP Internal Medicine; Visit Provider Internal Medicine
DX: E78.00 Pure hypercholesterolemia, unspecified (principal); R30.0 Dysuria; I10 Essential (primary) hypertension; E11.9 Type 2 diabetes mellitus without complications; E55.9 Vitamin D deficiency, unspecified
CPT/HCPCS: 36415; 80053; 80061; 81003; 82043; 82306; 82570; 83036; 84443; 85025

== ENCOUNTER 2023-08-10 16:44 | Outpatient (AMB) | payer OTHER, SELFPAY ==
--- NOTE | 2023-08-10 16:49 | MHC.PC.OV ---
Vital Signs 08/10/23 16:50 Height 5 ft 8 in Weight 217 lb 2 oz BMI 33.0 BP 122/90 H Blood Pressure Location Lt brachial Position Sitting Pulse 87 Pulse Source Pulse Oximeter Pulse Oximetry (%) 97 Oxygen Delivery Method Room Air Intake Visit Reasons: Annual PE Intake Note: Patient is here today for a physical. Reel Tender Required: No Supervisor Ovens: Not Required per policy Accompanied by: Self / Same As Patient Allergies aspirin [Aspirin] Allergy (Unknown, Verified 08/10/23 17:03) UNKNOWN lisinopril Allergy (Unknown, Verified 08/10/23 17:03) Cough penicillin V Allergy (Unknown, Verified 08/10/23 17:03) unknown Penicillins Allergy (Unknown, Verified 08/10/23 17:03) UNKNOWN metformin Adverse Reaction (Intermediate, Verified 08/10/23 17:03) Diarrhea Medication List - Last Reconciled 08/10/23 by Gregorio Bhatt MD atorvastatin 10 mg PO BEDTIME blood-glucose meter (FreeStyle Lite Meter kit) As directed glipizide ER 5 mg PO DAILY ibuprofen 600 mg PO Q6H PRN lancets (FreeStyle Lancets) As directed once a day losartan 50 mg PO DAILY metformin ER 500 mg PO DAILY 90 days omeprazole 20 mg PO DAILY Tobacco use date assessed: 08/10/23 Dental Screening Dental Screen Date: 08/10/23 Did you have a dental visit in the last 12 months?: Yes Did you have a dental problem in the last 6 months where you did not have access to dental care?: No Was dental information given to patient?: Patient has dentist HPI Annual PE HPI Details Patient comes in today for his annual physical examination - was last seen by me in September 2022 States that he currently feels okay He denies any headaches or dizziness Denies any chest pains, no SOB No nausea/vomiting, no abdominal pain No change in bowel habits noted He denies any acute urinary symptoms Needs several of his Rx refilled Had his follow up labs done a couple of weeks ago - to discuss his results He had his screening colonoscopy done last year with Dr. Crespo on 01/18/2023 - had a polyp removed that was hyperplastic but he was recommended for a repeat colonoscopy in 5 years due to fair bowel prep He also had EGD done at the time, which revealed (+) 2 cm sliding hiatal hernia, (+) Schatzki ring noted, with mild esophagitis and bogginess of GEJ, patchy erythema with granularity noted at the gastric mucosa, and mild bulbar duodenitis Biopsies done all came back negative for dysplastic changes FOR[facility]LY [facility], [facility] Medical History Vitamin D deficiency Smoker Pure hypercholesterolemia GERD without esophagitis Obesity (BMI 30-39.9) Benign essential hypertension Diabetes mellitus Surgical History Hx of colonoscopy History of esophagogastroduodenoscopy (EGD) History of carpal tunnel surgery Family History Mother Diabetes BP (high blood pressure) Brother Myocardial infarction, Onset Age: 41 Father No problems noted. Maternal Grandmother Cancer Sister No problems noted. Son In good health Son In good health Social History Housing: Apartment Alcohol intake: current Alcohol intake frequency: a few times a month Patient Tobacco Use Status: Current everyday Tobacco user Tobacco use type: Cigarette Cigarette Packs Per Day: 0.25 Cigarettes Per Day: 5 e-Cigarette/Vaping Use: Never Used Second Hand Smoke Exposure: Yes Advance Directives Date on File: 07/24/20 service: No Current occupational status: employed Current occupational exposures/hazards: No Cognitive needs: No Hearing needs: No Vision needs: Yes (glasses) Questionnaire PHQ-9 Over the last 2 weeks, how often have you been bothered by any of the following problems? 1. Little interest or pleasure in doing things: several days 2. Feeling down, depressed, or hopeless: nearly every day 3. Trouble falling or staying asleep, or sleeping too much: not at all 4. Feeling tired or having little energy: several days 5. Poor appetite or overeating: nearly every day 6. Feeling bad about yourself - or that you are a failure or have let yourself or your family down: several days 7. Trouble concentrating on things, such as reading the newspaper or watching television: not at all 8. Moving or speaking so slowly that other people could have noticed. Or the opposite - being so fidgety or restless that you have been moving around a lot more than usual: not at all 9. Thoughts that you would be better off or of hurting yourself in some way: not at all Total score: 9 Depression Screening Interpretation: Positive Depression Screening Follow-up: Existing condition and In treatment Depression Screening Done: Yes 17324 - PHQ-9 Billing: Yes Source: Developed by Drs. Alec Delcid, Jerrica Arriaga, Gerry Carreon and colleagues, with an educational stephanie from [employer]. Thrive Questionnaire Date Thrive assessed: 08/10/23 I am a: Patient What is your living situation today?: I have a steady place to live Within the past 12 months, did the food you bought not last and you didn't have the money to get more?: Never true Within the past 12 months, did you worry whether your food would run out before you got money to buy more?: Never true Do you have trouble paying for medicines?: No Do you have trouble getting transportation to medical appointments?: No Do you have trouble paying your heating and electricity bill?: No Do you have trouble taking care of your child, family member or friend?: No Do you have trouble with day-to-day activities such as bathing, preparing meals, shopping, managing finances, etc.?: No Are you currently unemployed and looking for a job?: No Are you interested in more education?: No Currently or been in a relationship where the following occur: no concerns reported THRIVE Score: 0 AUDIT C Alcohol Use Questionnaire (AUDIT-C) 1. How often do you have a drink containing alcohol?: 2-4 times a month 2. How many drinks containing alcohol do you have on a typical day when you are drinking?: 1 or 2 Total Score: 2 Score Reviewed/Action Taken: Yes YOAV-7 AMB Questionnaire YOAV-7 Date YOAV - 7 assessed: 08/10/23 Feeling nervous, anxious, or on edge: 0 = Not at all Not being able to stop or control worryin = Not at all Worrying too much about different things: 0 = Not at all Trouble relaxin = Not at all Being so restless that it is hard to sit still: 0 = Not at all Becoming easily annoyed or irritable: 0 = Not at all Feeling afraid as if something awful might happen: 0 = Not at all Total YOAV-7 score (0-4 normal; 5-9 mild; 10-14 moderate; 15-21 severe): 0 Source: Developed by Drs. Alec Delcid, Jerrica Arriaga, Gerry Carreon and colleagues, with an educational stephanie from [employer]. Review of Systems Const Denies chills, Denies fatigue, Denies fever(s), Denies headache(s), Denies malaise and Denies weakness Eyes Denies blurry vision, Denies change in vision, Denies irritation and Denies itchy eyes ENT Denies dysphagia, Denies dizziness, Denies otalgia, Denies headache(s), Denies nasal congestion, Denies neck pain, Denies odynophagia and Denies sore throat Card Denies chest pain, Denies rapid heart rate, Denies irregular heart rhythm, Denies palpitations and Denies dyspnea Resp Denies chest congestion, Denies cough, Denies dyspnea and Denies wheezing GI Denies abdominal pain, Denies bloating, Denies constipation, Denies dysphagia, Denies heartburn, Denies diarrhea, Denies nausea, Denies odynophagia and Denies vomiting Denies hematuria, Denies difficulty urinating, Denies dysuria, Denies urinary frequency and Denies urinary urgency Musc Denies back pain, Denies arthralgias, Denies joint swelling, Denies muscle weakness and Denies neck pain Skin/Breast Denies change in pigmentation, Denies lesions, Denies rash and Denies unusual bruising Neuro Denies dizziness, Denies headache(s), Denies paresthesias and Denies weakness Endo Denies fatigue and Denies palpitations Aller/Immun Denies itchy eyes and Denies wheezing Physical exam (Primary Care) Vital Signs: Last Vital Signs Pulse 87 08/10/23 16:50 BP 122/90 H 08/10/23 16:50 Pulse Ox 97 08/10/23 16:50 Oxygen Delivery Method Room Air 08/10/23 16:50 BMI result Body Mass Index 33.0 Tobacco/Smoking Status: Tobacco use Status Tobacco use date assessed 08/10/23 08/10/23 16:56 Patient Tobacco Use Status Current everyday Tobacco 08/10/23 16:56 Tobacco use type Cigarette 08/10/23 16:56 e-Cigarette/Vaping Use Never Used 08/10/23 16:56 PHQ-9: PHQ-9 Score PHQ-9: Total score 0 08/10/23 16:56 Depression Screening Interpretation: Positive Depression Screening Follow-up: Existing condition and In treatment Thrive Assessment: Date of Thrive Assessment Date Thrive assessed 08/10/23 08/10/23 16:56 Currently or been in a relationship where the following occur: no concerns reported Const General: no acute distress, alert and awake Orientation/consciousness: patient oriented x3 HENMT Head: Yes normocephalic and Yes atraumatic Ears: external ears normal, TM's normal bilaterally and EAC's normal General nose exam: No nasal discharge present Face and sinus: Yes normal facial exam and Yes sinuses nontender Teeth and gingiva: dentition normal Throat: Yes posterior oropharynx normal and Yes tonsils normal (no TP congestion) Eyes Eyelids: Yes eyelids normal Conjunctivae: conjunctivae normal Pupils: Equal, round and reactive pupils present EOM: EOMs intact bilaterally Neck Neck: Yes no lymphadenopathy and Yes supple Thyroid: Thyroid normal Resp Auscultation: clear to auscultation bilaterally, no rales and no wheezes Cardio Rate: regular rate Rhythm: regular rhythm Heart sounds: no murmurs GI Palpation (GI): Soft to palpation, nontender and No hepatosplenomegaly present Auscultation: normal bowel sounds General: Yes no CVA tenderness Back/Spine/Pelvis Back: no CVA tenderness Thoracic/Lumbar Spine: thoracic and lumbar spine normal to inspection Skin Lesions: no lesions Rashes: no rashes Neuro General: patient oriented x3, moves all extremities, no focal motor deficits and CN's II-XI intact bilaterally Cranial nerves: Yes Equal, round and reactive pupils present Cognition (Neuro): normal cognition Gait exam (Neuro): Normal gait present Extrem General: Yes no clubbing, cyanosis or edema Results Reviewed Results Reviewed: Laboratory Tests 07/30/23 07:30 WBC 6.5 Hgb 16.9 Hct 46.8 Plt Count 263 Sodium 140 Potassium 3.6 Creatinine 0.73 Estimated GFR > 60 Fasting Glucose 211 H Hemoglobin A1c % 9.0 H Calcium 9.0 AST 14 ALT 21 Triglycerides 97 Cholesterol 181 LDL Cholesterol, Calc 111 H HDL Cholesterol 51 25-OH Vitamin D Total 13.5 L TSH 1.08 Ur Specific [place] >= 1.030 H Urine Protein Negative Urine Glucose (UA) 250 H Urine Blood Negative Urine Nitrite Negative Ur Leukocyte Esterase Negative Microalb/Creat Ratio 5.9 Assessment and Plan Assessment & Plan (1) Annual physical exam: Code(s): Z00.00 - Encounter for general adult medical examination without abnormal findings Plan: Results of his labs done a couple of weeks ago reviewed and discussed with patient He is currently up-to-date with his colon cancer screening - done last year (2) Diabetes mellitus: Code(s): E11.9 - Type 2 diabetes mellitus without complications Qualifiers: Diabetes mellitus type: type 2 Diabetes mellitus snf insulin use: without computer terminal operator use Diabetes mellitus complication status: with hyperglycemia Qualified Code(s): E11.65 - Type 2 diabetes mellitus with hyperglycemia Plan: HgbA1c was at 9.0% on his labs done a couple of weeks ago (his in-office HgbA1c was at 8.6% when he was last seen here in September 2022) - goal is < 7.0% Reinforced diabetic diet Continue Metformin 500 mg QD (he has diarrhea when Metformin was increased to more than QD dosing) and Glipizide ER 5 mg QD Will try starting him additionally on Jardiance 25 mg Q AM - patient is advised to call us [facility] IF this is not covered by his insurance He was referred for his annual eye exam a couple of years ago but it looks like he was never seen by ophthalmology - will refer again (3) Pure hypercholesterolemia: Code(s): E78.00 - Pure hypercholesterolemia, unspecified Plan: Reinforced low cholesterol diet Continue Atorvastatin 10 mg QD Will recheck his labs and fasting lipids in 3 months for follow up (4) Benign essential hypertension: Code(s): I10 - Essential (primary) hypertension Plan: Reinforced low sodium diet - goal is systolic BP of at least 120 to 130 mm or less Continue Losartan 50 mg QD Patient is reminded to continue monitoring his blood pressure regularly (5) GERD without esophagitis: Code(s): K21.9 - Gastro-esophageal reflux disease without esophagitis Plan: Dietary restrictions reinforced Continue Omeprazole 20 mg QD (6) Vitamin D deficiency: Code(s): E55.9 - Vitamin D deficiency, unspecified Plan: He is advised that his Vitamin D level is very low on his recent labs Will start him back on Vitamin D3 2000 units QD (7) Smoker: Code(s): F17.200 - Nicotine dependence, unspecified, uncomplicated Plan: Counseled again on smoking cessation (8) Obesity (BMI 30-39.9): Code(s): E66.9 - Obesity, unspecified Plan: Reinforced diet/exercise as tolerated/lose weight Plan Follow up in 3 months Orders: Orders Comprehensive [place]. Panel Fast 3 Months E78.00 - Pure hypercholesterolemia, unspecified UA CC w/rflx Micro + Cult 3 Months R30.0 - Dysuria, Z00.00 - Encounter for general adult medical examination without abnormal findings Vitamin D 25-OH Total 3 Months E55.9 - Vitamin D deficiency, unspecified, Z00.00 - Encounter for general adult medical examination without abnormal findings Hemoglobin A1c 3 Months E11.9 - Type 2 diabetes mellitus without complications Lipid Panel 3 Months E78.00 - Pure hypercholesterolemia, unspecified Complete Blood Count Auto Diff 3 Months D64.9 - Anemia, unspecified, Z00.00 - Encounter for general adult medical examination without abnormal findings Microalbumin, Random (w Creat) 3 Months E11.9 - Type 2 diabetes mellitus without complications, Z00.00 - Encounter for general adult medical examination without abnormal findings TSH reflex Free T4 3 Months E78.00 - Pure hypercholesterolemia, unspecified, Z00.00 - Encounter for general adult medical examination without abnormal findings Prostate Specific Antigen Scr 3 Months Z00.00 - Encounter for general adult medical examination without abnormal findings Referrals Ophthalmology Referral E11.9 - Type 2 diabetes mellitus without complications Medications: New empagliflozin (Jardiance) 25 mg PO QAM 90 days 90 tabs 1RF cholecalciferol (vitamin D3) 50 mcg PO DAILY 90 days 90 caps 3RF E55.9 - Vitamin D deficiency, unspecified Changed From ibuprofen 600 mg PO Q6H PRN 20 tabs 0RF fever or pain To ibuprofen Take with food, only as needed for pain 600 mg PO Q6H PRN 30 tabs 1RF fever or pain Refilled losartan 50 mg PO DAILY 90 tabs 1RF I10 - Essential (primary) hypertension omeprazole 20 mg PO DAILY 90 caps 1RF K21.9 - Gastro-esophageal reflux disease without esophagitis atorvastatin 10 mg PO BEDTIME 90 tabs 1RF E11.65 - Type 2 diabetes mellitus with hyperglycemia metformin ER 500 mg PO DAILY 90 days 90 tabs 1RF Coding Level of Care Code Est Pt Prev Care 40-64y(85091) Diagnoses Annual physical exam Z00.00 Type 2 diabetes mellitus with hyperglycemia, without long-term current use of insulin E11.65 Diabetes mellitus type: type 2 Diabetes mellitus computer terminal operator insulin use: without computer terminal operator use Diabetes mellitus complication status: with hyperglycemia Pure hypercholesterolemia E78.00 Benign essential hypertension I10 GERD without esophagitis K21.9 Vitamin D deficiency E55.9 Smoker F17.200 Obesity (BMI 30-39.9) E66.9
[2023-08-10 16:50] VITALS: BP 122/90; PULSE 87; O2SAT 97; BMI 33.0
== END 2023-08-10 17:16 | disposition home or self-care (01) ==
PROVIDERS: PCP Internal Medicine; Visit Provider Internal Medicine
DX: Z00.00 Encounter for general adult medical examination without abnormal findings (principal); E11.65 Type 2 diabetes mellitus with hyperglycemia; E78.00 Pure hypercholesterolemia, unspecified; I10 Essential (primary) hypertension; K21.9 Gastro-esophageal reflux disease without esophagitis; E55.9 Vitamin D deficiency, unspecified; F17.200 Nicotine dependence, unspecified, uncomplicated
CPT/HCPCS: 99396

== ENCOUNTER 2023-12-02 06:27 | Outpatient (REF) | payer OTHER, SELFPAY ==
[2023-12-02 06:46] LABS: MANUAL DIFF FLAG NO
[2023-12-02 07:25] LABS: Basophils Percent Auto 0.5 % (0-2); Eosinophils Absolute Auto 0.2 X10*3/uL (0.0-0.4); Hematocrit 47.9 % (42.0-52.0); Hemoglobin 17.4 g/dl (14.0-18.0); Imm Gran Abs Auto 0.04 X10*3/uL (0.00-0.03); Imm Gran Pct Auto 0.6 % (0.0-0.4); Lymphocytes Absolute Auto 1.6 X10*3/uL (1.2-4.9); Lymphocytes Percent Auto 23.8 % (20-40); Mean Corpuscular HGB Conc 36.3 g/dl (31.0-36.0); Mean Corpuscular Hemoglobin 31.5 pg (27.0-33.0); Mean Corpuscular Volume 86.6 fL (80.0-98.0); Mean Platelet Volume 9.6 fL (9.4-12.4); Monocytes Absolute Auto 0.7 X10*3/uL (0.1-1.2); Monocytes Percent Auto 10.8 % (2-11); Neutrophils Absolute Auto 4.1 x10*3/uL (2.0-8.3); Neutrophils Percent Auto 61.3 % (45-73); Platelet Count 263 X10*3/uL (160-400); Red Blood Count 5.53 X10*6/uL (4.60-5.80); Red Cell Distribution Width 12.1 % (11.0-16.0); White Blood Count 6.7 X10*3/uL (4.8-10.8)
[2023-12-02 07:28] LABS: Appearance Urine Clear; Color Urine Yellow; Glucose Urine UA 250 mg/dL (Negative); Leukocyte Esterase Urine Negative (Negative); Nitrite Urine Negative (Negative); PH 5.5 (5.0-9.0); Urine Blood Negative (Negative); Urine Ketones Negative (Negative); Urine Protein Negative (Neg-Trace)
[2023-12-02 07:45] LABS: Estimated Average Glucose 206 mg/dL; Hemoglobin A1c % 8.8 % (<6.0)
[2023-12-02 08:03] LABS: Creatinine Urine 168.43 mg/dL; Microalbum/Creatinine Ratio Ur 5.9 ug/mg cr (<30)
[2023-12-02 08:12] LABS: Alanine Aminotransferase 30 U/L (0-40); Alkaline Phosphatase 104 U/L (39-117); Anion Gap 15 (12-20); Aspartate Amino Transferase 20 U/L (5-37); Bilirubin Total 0.5 mg/dL (0.0-1.0); Blood Urea Nitrogen 12 mg/dL (9-16); Calcium 9.2 mg/dL (8.4-10.2); Carbon Dioxide 24 mmol/L (22-29); Chloride 104 mmol/L (96-108); Cholesterol 166 mg/dL (<200); Estimated Glomerular Filt Rate > 60; Glucose Fasting 190 mg/dL (60-99); HDL Cholesterol 54 mg/dL (>40); LDL Cholesterol Calculated 93 mg/dL (<100); Potassium 3.6 mmol/L (3.3-5.1); Sodium 139 mmol/L (135-145); Total Protein 6.9 g/dL (6.5-8.0); Triglycerides 95 mg/dL (<150)
[2023-12-02 08:15] LABS: Prostate Specific Antigen Scr 1.33 ng/mL (<0.05-4.0)
[2023-12-02 08:17] LABS: TSH reflex Free T4 1.78 uIU/mL (0.32-4.0); Vitamin D 25-OH Total 40.3 ng/mL (>30)
== END 2023-12-02 06:28 | disposition home or self-care (01) ==
LOC: HO.LAB 06:27
PROVIDERS: PCP Internal Medicine; Visit Provider Internal Medicine
DX: Z00.00 Encounter for general adult medical examination without abnormal findings (principal); E55.9 Vitamin D deficiency, unspecified; E78.00 Pure hypercholesterolemia, unspecified; D64.9 Anemia, unspecified; R30.0 Dysuria; E11.9 Type 2 diabetes mellitus without complications; Z12.5 Encounter for screening for malignant neoplasm of prostate
CPT/HCPCS: 36415; 80053; 80061; 81003; 82043; 82306; 82570; 83036; 84153; 84443; 85025

== ENCOUNTER 2023-12-05 16:31 | Outpatient (AMB) | payer OTHER, SELFPAY ==
--- NOTE | 2023-12-05 16:32 | MHC.PC.OV ---
Vital Signs 12/05/23 16:33 Height 5 ft 8 in Weight 207 lb 5 oz BMI 31.5 BP 116/76 Blood Pressure Location Lt brachial Position Sitting Pulse 85 Pulse Source Pulse Oximeter Pulse Oximetry (%) 96 Oxygen Delivery Method Room Air Intake Visit Reasons: 3 month DM, hyperlipidemia, HTN Intake Note: Patient is here to follow up on DM, HLD, HTN. Practice Director Required: No Jewel Setter: Not Required per policy Accompanied by: Self / Same As Patient Allergies aspirin [Aspirin] Allergy (Unknown, Verified 12/05/23 17:00) UNKNOWN lisinopril Allergy (Unknown, Verified 12/05/23 17:00) Cough penicillin V Allergy (Unknown, Verified 12/05/23 17:00) unknown Penicillins Allergy (Unknown, Verified 12/05/23 17:00) UNKNOWN metformin Adverse Reaction (Intermediate, Verified 12/05/23 17:00) Diarrhea Medication List - Last Reconciled 12/05/23 by Gregorio Bhatt MD atorvastatin 10 mg PO BEDTIME blood-glucose meter (FreeStyle Lite Meter kit) As directed cholecalciferol (vitamin D3) 50 mcg PO DAILY 90 days Farxiga (dapagliflozin propanediol) 10 mg PO QAM 90 days NS glipizide ER 5 mg PO DAILY ibuprofen 600 mg PO Q6H PRN lancets (FreeStyle Lancets) As directed once a day losartan 50 mg PO DAILY metformin ER 500 mg PO DAILY 90 days omeprazole 20 mg PO DAILY Tobacco use date assessed: 12/05/23 Dental Screening Dental Screen Date: 08/10/23 HPI 3 month DM, hyperlipidemia, HTN HPI Details Patient comes in today for his follow up visit States that he has been coughing a lot lately (cough has been ongoing for a couple of months now) Notes that his cough seems to be worse at night lately and he coughs up thick brownish phlegm at times He denies any fever or sore throat Denies any headaches or dizziness Denies any chest pains, no shortness of breath No nausea/ vomiting, no abdominal pain No change in bowel habits noted He had his follow-up labs done few days ago - to discuss his results [facility] Medical History Vitamin D deficiency Smoker Pure hypercholesterolemia GERD without esophagitis Obesity (BMI 30-39.9) Benign essential hypertension Diabetes mellitus Surgical History Hx of colonoscopy History of esophagogastroduodenoscopy (EGD) History of carpal tunnel surgery Family History Mother Diabetes BP (high blood pressure) Brother Myocardial infarction, Onset Age: 41 Father No problems noted. Maternal Grandmother Cancer Sister No problems noted. Son In good health Son In good health Social History Housing: Apartment Alcohol intake: current Alcohol intake frequency: a few times a month Patient Tobacco Use Status: Current everyday Tobacco user Tobacco use type: Cigarette Cigarette Packs Per Day: 0.25 Cigarettes Per Day: 5 e-Cigarette/Vaping Use: Never Used Second Hand Smoke Exposure: Yes Advance Directives Date on File: 07/24/20 service: No Current occupational status: employed Current occupational exposures/hazards: No Cognitive needs: No Hearing needs: No Vision needs: Yes (glasses) Questionnaire Thrive Questionnaire Date Thrive assessed: 08/10/23 YOAV-7 AMB Questionnaire YOAV-7 Date YOAV - 7 assessed: 08/10/23 Source: Developed by Drs. Alec Delcid, Jerrica Arriaga, Gerry Carreon and colleagues, with an educational stephanie from [employer]. Review of Systems Const Denies chills, Denies fatigue, Denies fever(s) and Denies headache(s) ENT Denies dysphagia, Denies dizziness, Denies otalgia, Denies headache(s), Denies neck pain, Denies odynophagia and Denies sore throat Card Denies chest pain, Denies rapid heart rate, Denies irregular heart rhythm, Denies palpitations and Denies dyspnea Resp Denies chest congestion, Reports cough (on and off, worse at night; coughs up slightly brownish phlegm at times), Denies dyspnea and Denies wheezing GI Denies abdominal pain, Denies constipation, Denies dysphagia, Denies heartburn, Denies diarrhea, Denies nausea, Denies odynophagia and Denies vomiting Denies difficulty urinating, Denies nocturia, Reports urinary frequency and Denies urinary incontinence Musc Denies back pain, Denies arthralgias and Denies neck pain Skin/Breast Denies rash Neuro Denies dizziness, Denies headache(s) and Denies paresthesias Endo Denies fatigue and Denies palpitations Aller/Immun Denies wheezing Physical exam (Primary Care) Vital Signs: Last Vital Signs Pulse 85 12/05/23 16:33 BP 116/76 12/05/23 16:33 Pulse Ox 96 12/05/23 16:33 Oxygen Delivery Method Room Air 12/05/23 16:33 BMI result Body Mass Index 31.5 Tobacco/Smoking Status: Tobacco use Status Tobacco use date assessed 12/05/23 12/05/23 16:37 Patient Tobacco Use Status Current everyday Tobacco 12/05/23 16:37 Tobacco use type Cigarette 12/05/23 16:37 e-Cigarette/Vaping Use Never Used 12/05/23 16:37 Thrive Assessment: Date of Thrive Assessment Date Thrive assessed 08/10/23 12/05/23 16:37 Const General: no acute distress and alert HENMT Ears: TM's normal bilaterally and EAC's normal Throat: Yes posterior oropharynx normal and Yes tonsils normal (no TP congestion) Neck Neck: Yes no lymphadenopathy and Yes supple Thyroid: Thyroid normal Resp Auscultation: clear to auscultation bilaterally, no rales, rhonchi (occasional) and no wheezes Cardio Rate: regular rate Rhythm: regular rhythm Heart sounds: no murmurs GI Palpation (GI): Soft to palpation and nontender Auscultation: normal bowel sounds General: Yes no CVA tenderness Back/Spine/Pelvis Back: no CVA tenderness Thoracic/Lumbar Spine: No lumbar spinal tenderness Skin Rashes: no rashes Extrem General: Yes no clubbing, cyanosis or edema Results Reviewed Results Reviewed: Laboratory Tests 12/02/23 12/02/23 06:41 06:45 WBC 6.7 Hgb 17.4 Hct 47.9 Plt Count 263 Sodium 139 Potassium 3.6 Creatinine 0.81 Estimated GFR > 60 Fasting Glucose 190 H Hemoglobin A1c % 8.8 H Calcium 9.2 AST 20 ALT 30 Triglycerides 95 Cholesterol 166 LDL Cholesterol, Calc 93 HDL Cholesterol 54 PSA Screen 1.33 25-OH Vitamin D Total 40.3 TSH 1.78 Ur Specific [place] 1.020 Urine Protein Negative Urine Glucose (UA) 250 H Urine Blood Negative Urine Nitrite Negative Ur Leukocyte Esterase Negative Microalb/Creat Ratio 5.9 Assessment and Plan Assessment & Plan (1) Diabetes mellitus: Code(s): E11.9 - Type 2 diabetes mellitus without complications Qualifiers: Diabetes mellitus complication status: with hyperglycemia Diabetes mellitus terminal operator insulin use: without custodial use Diabetes mellitus type: type 2 Qualified Code(s): E11.65 - Type 2 diabetes mellitus with hyperglycemia Plan: Patient's HgbA1c was at 8.8% on his labs done a few days ago (was previously at 9.0% a few months ago) - goal is < 7.0% Reinforced diabetic diet Continue Metformin 500 mg QD (he has diarrhea when Metformin was increased to more than QD dosing) and Glipizide ER 5 mg QD He was started on Jardiance 25 mg QD but his insurance declined to cover the Rx We sent in a prescription for Farxiga 10 mg Q AM instead but it appears that patient never picked up this prescription We will send in the prescription again and have instructed him to start taking this GRACE (2) Pure hypercholesterolemia: Code(s): E78.00 - Pure hypercholesterolemia, unspecified Plan: Results of his labs done a few days ago reviewed and discussed with patient Reinforced low cholesterol diet Continue Atorvastatin 10 mg QD Will recheck his labs and fasting lipids in 4 months for follow up (3) Benign essential hypertension: Code(s): I10 - Essential (primary) hypertension Plan: Reinforced low sodium diet - goal is systolic BP of at least 120 to 130 mm or less Continue Losartan 50 mg QD Patient is reminded to continue monitoring his blood pressure regularly (4) GERD without esophagitis: Code(s): K21.9 - Gastro-esophageal reflux disease without esophagitis Plan: Dietary restrictions reinforced Continue Omeprazole 20 mg QD (5) Vitamin D deficiency: Code(s): E55.9 - Vitamin D deficiency, unspecified Plan: Continue Vitamin D3 2000 units QD (6) Respiratory tract infection: Code(s): J98.8 - Other specified respiratory disorders Plan: Will start patient empirically on Azithromycin QD x 5 days (7) Smoker: Code(s): F17.200 - Nicotine dependence, unspecified, uncomplicated Plan: Counseled again on smoking cessation (8) Obesity (BMI 30-39.9): Code(s): E66.9 - Obesity, unspecified Plan: Reinforced diet/exercise as tolerated/lose weight Plan Follow up in 4 months Orders: Orders TSH reflex Free T4 4 Months E78.00 - Pure hypercholesterolemia, unspecified UA CC w/rflx Micro + Cult 4 Months R30.0 - Dysuria Vitamin D 25-OH Total 4 Months E55.9 - Vitamin D deficiency, unspecified Hemoglobin A1c 4 Months E11.9 - Type 2 diabetes mellitus without complications Lipid Panel 4 Months E78.00 - Pure hypercholesterolemia, unspecified Complete Blood Count Auto Diff 4 Months D64.9 - Anemia, unspecified Comprehensive [place]. Panel Fast 4 Months E78.00 - Pure hypercholesterolemia, unspecified Microalbumin, Random (w Creat) 4 Months E11.9 - Type 2 diabetes mellitus without complications Vitamin B12 and Folate 4 Months E53.8 - Deficiency of other specified B group vitamins Medications: New azithromycin take 500 mg today (day 1), then 250 mg for 4 days (days 2-5) PO 6 tabs 0RF Refilled Farxiga (dapagliflozin propanediol) 10 mg PO QAM 90 days 90 tabs 3RF NS ibuprofen Take with food, only as needed for pain 600 mg PO Q6H PRN 30 tabs 1RF fever or pain metformin ER 500 mg PO DAILY 90 days 90 tabs 1RF glipizide ER 5 mg PO DAILY 90 tabs 1RF E11.65 - Type 2 diabetes mellitus with hyperglycemia Coding Level of Care Code Est Pt Level 4 (87249) Complex EM visit Add On G2211 Diagnoses Type 2 diabetes mellitus with hyperglycemia, without long-term current use of insulin E11.65 Diabetes mellitus complication status: with hyperglycemia Diabetes mellitus terminal operator insulin use: without custodial use Diabetes mellitus type: type 2 Pure hypercholesterolemia E78.00 Benign essential hypertension I10 GERD without esophagitis K21.9 Vitamin D deficiency E55.9 Respiratory tract infection J98.8 Smoker F17.200 Obesity (BMI 30-39.9) E66.9
[2023-12-05 16:33] VITALS: BP 116/76; PULSE 85; O2SAT 96; BMI 31.5
== END 2023-12-05 17:06 | disposition home or self-care (01) ==
PROVIDERS: PCP Internal Medicine; Visit Provider Internal Medicine
DX: E11.65 Type 2 diabetes mellitus with hyperglycemia (principal); E78.00 Pure hypercholesterolemia, unspecified; I10 Essential (primary) hypertension; K21.9 Gastro-esophageal reflux disease without esophagitis; E55.9 Vitamin D deficiency, unspecified; J98.8 Other specified respiratory disorders
CPT/HCPCS: 99214

== ENCOUNTER 2024-03-28 06:40 | Outpatient (REF) | payer OTHER, SELFPAY ==
[2024-03-28 07:27] LABS: MANUAL DIFF FLAG NO
[2024-03-28 07:56] LABS: Basophils Percent Auto 0.5 % (0-2); Eosinophils Absolute Auto 0.1 X10*3/uL (0.0-0.4); Eosinophils Percent Auto 1.8 % (0-4); Hemoglobin 17.4 g/dl (14.0-18.0); Imm Gran Abs Auto 0.03 X10*3/uL (0.00-0.03); Imm Gran Pct Auto 0.4 % (0.0-0.4); Lymphocytes Absolute Auto 1.3 X10*3/uL (1.2-4.9); Lymphocytes Percent Auto 17.7 % (20-40); Mean Corpuscular HGB Conc 34.8 g/dl (31.0-36.0); Mean Corpuscular Hemoglobin 30.5 pg (27.0-33.0); Mean Corpuscular Volume 87.7 fL (80.0-98.0); Mean Platelet Volume 9.3 fL (9.4-12.4); Monocytes Absolute Auto 0.6 X10*3/uL (0.1-1.2); Monocytes Percent Auto 8.1 % (2-11); Neutrophils Absolute Auto 5.2 x10*3/uL (2.0-8.3); Neutrophils Percent Auto 71.5 % (45-73); Platelet Count 277 X10*3/uL (160-400); Red Cell Distribution Width 11.9 % (11.0-16.0); White Blood Count 7.3 X10*3/uL (4.8-10.8)
[2024-03-28 08:03] LABS: Estimated Average Glucose 148 mg/dL; Hemoglobin A1C 227.6761 umol/L; Hemoglobin A1c % 6.8 % (<6.0)
[2024-03-28 08:10] LABS: Appearance Urine Clear; Color Urine Yellow; Glucose Urine UA >=1000 mg/dL (Negative); Leukocyte Esterase Urine Negative (Negative); Nitrite Urine Negative (Negative); Specific Gravity - Urine >= 1.030 (1.005-1.025); UMIC TRIGGER UACC YES; Urine Blood Negative (Negative); Urine Ketones Negative (Negative); Urine Protein Negative (Neg-Trace)
[2024-03-28 08:15] LABS: Bacteria Urine None Seen (None Seen); Hyaline Casts Urine 0-2 /LPF (0-2); RBC Urine 0-2 /HPF (0-2); Squamous Epithelial Cell Urine 0-2 /HPF (0-2); WBC Urine 0-5 /HPF (0-5)
[2024-03-28 08:28] LABS: Creatinine Urine 138.03 mg/dL; Microalbum/Creatinine Ratio Ur 4.3 ug/mg cr (<30)
[2024-03-28 08:36] LABS: Alanine Aminotransferase 28 U/L (0-40); Albumin Level 3.9 g/dL (3.5-5.0); Alkaline Phosphatase 105 U/L (39-117); Anion Gap 13 (12-20); Aspartate Amino Transferase 27 U/L (5-37); Bilirubin Total 0.3 mg/dL (0.0-1.0); Blood Urea Nitrogen 12 mg/dL (9-16); Carbon Dioxide 28 mmol/L (22-29); Chloride 105 mmol/L (96-108); Cholesterol 179 mg/dL (<200); Estimated Glomerular Filt Rate > 60; Glucose Fasting 130 mg/dL (60-99); HDL Cholesterol 62 mg/dL (>40); LDL Cholesterol Calculated 100 mg/dL (<100); Potassium 3.8 mmol/L (3.3-5.1); Sodium 142 mmol/L (135-145); Triglycerides 85 mg/dL (<150)
[2024-03-28 08:54] LABS: TSH reflex Free T4 1.41 uIU/mL (0.32-4.0); Vitamin D 25-OH Total 33.9 ng/mL (>30)
[2024-03-28 09:00] LABS: Folate 9.2 ng/mL (> or = 4.0); Vitamin B12 605 pg/mL (200-900)
== END 2024-03-28 06:41 | disposition home or self-care (01) ==
LOC: HO.LAB 06:40
PROVIDERS: PCP Internal Medicine; Visit Provider Internal Medicine
DX: E78.00 Pure hypercholesterolemia, unspecified (principal); E55.9 Vitamin D deficiency, unspecified; E11.9 Type 2 diabetes mellitus without complications; D64.9 Anemia, unspecified; E53.8 Deficiency of other specified B group vitamins
CPT/HCPCS: 36415; 80053; 80061; 81001; 81003; 82043; 82306; 82570; 82607; 82746; 83036; 84443; 85025

== ENCOUNTER 2024-04-13 15:41 | Outpatient (AMB) | payer OTHER, SELFPAY ==
--- NOTE | 2024-04-13 15:51 | A.OFFPC_ITS ---
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: No Accompanied by: Self / Same As Patient Allergies aspirin [Aspirin] Allergy (Unknown, Verified 04/13/24 16:17) UNKNOWN lisinopril Allergy (Unknown, Verified 04/13/24 16:17) Cough penicillin V Allergy (Unknown, Verified 04/13/24 16:17) unknown Penicillins Allergy (Unknown, Verified 04/13/24 16:17) UNKNOWN metformin Adverse Reaction (Intermediate, Verified 04/13/24 16:17) Diarrhea Medication List - Last Reconciled 04/13/24 by Gregorio Bhatt MD atorvastatin 10 mg PO BEDTIME blood-glucose meter (FreeStyle Lite Meter kit) As directed cholecalciferol (vitamin D3) 50 mcg PO DAILY 90 days Farxiga (dapagliflozin propanediol) 10 mg PO QAM 90 days NS glipizide ER 5 mg PO DAILY ibuprofen 600 mg PO Q6H PRN lancets (FreeStyle Lancets) As directed once a day losartan 50 mg PO DAILY metformin ER 500 mg PO DAILY 90 days omeprazole 20 mg PO DAILY Tobacco use date assessed: 04/13/24 Dental Screening Dental Screen Date: 04/13/24 Did you have a dental visit in the last 12 months?: No Did you have a dental problem in the last 6 months where you did not have access to dental care?: No Was dental information given to patient?: Patient has dentist HPI 4 Months HPI Details Patient comes in today for his follow-up visit States that he feels okay notes that his blood sugars have improved a lot over the past few months but he has noticed a few low blood sugar readings lately States had there were a couple of times when his blood sugar went down to about 40-50 mg/dL and he calls feeling slightly weak and dizzy at the time States that his symptoms improved promptly after drank something sweet He denies any headaches or dizziness Denies any chest pains, no shortness of breath No nausea/vomiting, no abdominal pain No change in bowel habits noted Patient adds that he has been experiencing some stiffness in his left hand lately States that there were a few times when he could not fully extend his his left ring and left index fingers for a while Needs a couple of his Rx refilled He had his follow-up labs done a couple weeks ago - to discuss his results [facility] Medical History Vitamin D deficiency Smoker Pure hypercholesterolemia GERD without esophagitis Obesity (BMI 30-39.9) Benign essential hypertension Diabetes mellitus Surgical History Hx of colonoscopy History of esophagogastroduodenoscopy (EGD) History of carpal tunnel surgery Family History Mother Diabetes BP (high blood pressure) Brother Myocardial infarction, Onset Age: 41 Father No problems noted. Maternal Grandmother Cancer Sister No problems noted. Son In good health Son In good health Social History Housing: Apartment Alcohol intake: current Alcohol intake frequency: a few times a month Patient Tobacco Use Status: Current everyday Tobacco user Tobacco use type: Cigarette Cigarette Packs Per Day: 0.25 Cigarettes Per Day: 5 e-Cigarette/Vaping Use: Never Used Second Hand Smoke Exposure: Yes Advance Directives Date on File: 07/24/20 service: No Current occupational status: employed Current occupational exposures/hazards: No Cognitive needs: No Hearing needs: No Vision needs: Yes (glasses) Questionnaire PHQ-9 Over the last 2 weeks, how often have you been bothered by any of the following problems? 1. Little interest or pleasure in doing things: several days 2. Feeling down, depressed, or hopeless: nearly every day 3. Trouble falling or staying asleep, or sleeping too much: not at all 4. Feeling tired or having little energy: several days 5. Poor appetite or overeating: nearly every day 6. Feeling bad about yourself - or that you are a failure or have let yourself or your family down: several days 7. Trouble concentrating on things, such as reading the newspaper or watching television: not at all 8. Moving or speaking so slowly that other people could have noticed. Or the opposite - being so fidgety or restless that you have been moving around a lot more than usual: not at all 9. Thoughts that you would be better off or of hurting yourself in some way: not at all Total score: 9 Depression Screening Interpretation: Positive Depression Screening Follow-up: Existing condition and In treatment Depression Screening Done: Yes 43390 - PHQ-9 Billing: Yes Source: Developed by Drs. Alec Delcid, Jerrica Arriaga, Gerry Carreon and colleagues, with an educational stephanie from [employer]. Thrive Questionnaire Date Thrive assessed: 04/13/24 I am a: Patient What is your living situation today?: I have a steady place to live Within the past 12 months, did the food you bought not last and you didn't have the money to get more?: Never true Within the past 12 months, did you worry whether your food would run out before you got money to buy more?: Never true Do you have trouble paying for medicines?: No Do you have trouble getting transportation to medical appointments?: No Do you have trouble paying your heating and electricity bill?: No Do you have trouble taking care of your child, family member or friend?: No Do you have trouble with day-to-day activities such as bathing, preparing meals, shopping, managing finances, etc.?: No Are you currently unemployed and looking for a job?: No Are you interested in more education?: No Please select the resources that you would like help with: None Currently or been in a relationship where the following occur: No concerns reported THRIVE Score: 0 AUDIT C Alcohol Use Questionnaire (AUDIT-C) 1. How often do you have a drink containing alcohol?: 2-4 times a month 2. How many drinks containing alcohol do you have on a typical day when you are drinking?: 1 or 2 3. How often do you have six or more drinks on one occasion?: Never Total Score: 2 Score Reviewed/Action Taken: Yes YOAV-7 AMB Questionnaire YOAV-7 Date YOAV - 7 assessed: 04/13/24 Feeling nervous, anxious, or on edge: 0 = Not at all Not being able to stop or control worryin = Not at all Worrying too much about different things: 0 = Not at all Trouble relaxin = Not at all Being so restless that it is hard to sit still: 0 = Not at all Becoming easily annoyed or irritable: 0 = Not at all Feeling afraid as if something awful might happen: 0 = Not at all Total YOAV-7 score (0-4 normal; 5-9 mild; 10-14 moderate; 15-21 severe): 0 Source: Developed by Drs. Alec Delcid, Jerrica Arriaga, Gerry Carreon and colleagues, with an educational stephanie from [employer]. Review of Systems Const Denies chills, Denies fatigue, Denies fever(s) and Denies headache(s) ENT Denies dysphagia, Denies dizziness, Denies otalgia, Denies headache(s), Denies neck pain, Denies odynophagia and Denies sore throat Card Denies chest pain, Denies rapid heart rate, Denies irregular heart rhythm, Denies palpitations and Denies dyspnea Resp Denies chest congestion, Denies cough and Denies dyspnea GI Denies abdominal pain, Denies constipation, Denies dysphagia, Denies heartburn, Denies diarrhea, Denies nausea, Denies odynophagia and Denies vomiting Denies difficulty urinating, Denies nocturia, Reports urinary frequency and Denies urinary incontinence Musc Denies back pain, Denies arthralgias, Denies neck pain and Reports stiffness (on and off in the left hand - see HPI) Skin/Breast Denies rash Neuro Denies dizziness, Denies headache(s) and Denies paresthesias Endo Denies fatigue and Denies palpitations Physical exam (Primary Care) Vital Signs: Last Vital Signs Pulse 98 04/13/24 15:52 BP 120/70 04/13/24 15:52 Pulse Ox 96 04/13/24 15:52 Oxygen Delivery Method Room Air 04/13/24 15:52 BMI result Body Mass Index 31.8 Tobacco/Smoking Status: Tobacco use Status Tobacco use date assessed 04/13/24 04/13/24 15:56 Patient Tobacco Use Status Current everyday Tobacco 04/13/24 15:56 Tobacco use type Cigarette 04/13/24 15:56 e-Cigarette/Vaping Use Never Used 04/13/24 15:56 PHQ-9: PHQ-9 Score PHQ-9: Total score 9 04/13/24 16:18 Depression Screening Interpretation: Positive Depression Screening Follow-up: Existing condition and In treatment Thrive Assessment: Date of Thrive Assessment Date Thrive assessed 04/13/24 04/13/24 15:56 Currently or been in a relationship where the following occur: No concerns reported Const General: no acute distress and alert HENMT Ears: TM's normal bilaterally and EAC's normal Throat: Yes posterior oropharynx normal and Yes tonsils normal (no TP congest ion) Neck Neck: Yes no lymphadenopathy and Yes supple Thyroid: Thyroid normal Resp Auscultation: clear to auscultation bilaterally, no rales and no wheezes Cardio Rate: regular rate Rhythm: regular rhythm Heart sounds: no murmurs GI Palpation (GI): Soft to palpation and nontender Auscultation: normal bowel sounds General: Yes no CVA tenderness Back/Spine/Pelvis Back: no CVA tenderness Thoracic/Lumbar Spine: No lumbar spinal tenderness Skin Rashes: no rashes Extrem General: Yes no clubbing, cyanosis or edema Results Reviewed Results Reviewed: Laboratory Tests 03/28/24 03/28/24 07:23 07:24 WBC 7.3 Hgb 17.4 Hct 50.0 Plt Count 277 Sodium 142 Potassium 3.8 Creatinine 0.75 Estimated GFR > 60 Fasting Glucose 130 H Hemoglobin A1c % 6.8 H Calcium 9.0 AST 27 ALT 28 Triglycerides 85 Cholesterol 179 LDL Cholesterol, Calc 100 H HDL Cholesterol 62 Vitamin B12 605 25-OH Vitamin D Total 33.9 TSH 1.41 Urine pH 6.0 Ur Specific [place] >= 1.030 H Urine Protein Negative Urine Glucose (UA) >=1000 H Urine Blood Negative Urine Nitrite Negative Ur Leukocyte Esterase Negative Microalb/Creat Ratio 4.3 Coding Level of Care Code Est Pt Level 4 (91484) Diagnoses Type 2 diabetes mellitus with hyperglycemia, without long-term current use of insulin E11.65 Diabetes mellitus type: type 2 Diabetes mellitus care home insulin use: without care home use Diabetes mellitus complication status: with hyperglycemia Pure hypercholesterolemia E78.00 Benign essential hypertension I10 GERD without esophagitis K21.9 Vitamin D deficiency E55.9 Trigger finger of left hand, unspecified finger M65.30 Trigger finger location: unspecified finger Smoker F17.200 Obesity (BMI 30-39.9) E66.9 Additional Codes PHQ-9 - 01875 - PHQ-9 Billing: Yes ([id number]) Assessment & Plan Assessment & Plan (1) Diabetes mellitus: Code(s): E11.9 - Type 2 diabetes mellitus without complications Category: Medical Qualifiers: Diabetes mellitus type: type 2 Diabetes mellitus care home insulin use: without care home use Diabetes mellitus complication status: with hyperglycemia Qualified Code(s): E11.65 - Type 2 diabetes mellitus with hyperglycemia Plan: Patient's HgbA1c was at 6.8% on his labs done a couple of weeks ago (was previously at 8.8% a few months ago) - goal is < 7.0% Reinforced diabetic diet Continue Metformin 500 mg QD (he has diarrhea when Metformin was increased to more than QD dosing) and Farxiga 10 mg QD As he has apparently been experiencing some hypoglycemic episodes lately, we will have him HOLD his Glipizide ER 5 mg QD for now Have advised patient that if his HgbA1c stays under 7.0% over the next few months, we can then permanently discontinue his Glipizide (2) Pure hypercholesterolemia: Code(s): E78.00 - Pure hypercholesterolemia, unspecified Category: Medical Plan: Results of his labs done a couple of weeks ago reviewed and discussed with patient Reinforced low cholesterol diet Continue Atorvastatin 10 mg QD Will recheck his labs and fasting lipids in 4 months for follow up (3) Benign essential hypertension: Code(s): I10 - Essential (primary) hypertension Category: Medical Plan: Reinforced low sodium diet - goal is systolic BP of at least 120 to 130 mm or less Continue Losartan 50 mg QD Patient is reminded to continue monitoring his blood pressure regularly (4) GERD without esophagitis: Code(s): K21.9 - Gastro-esophageal reflux disease without esophagitis Category: Medical Plan: Dietary restrictions reinforced Continue Omeprazole 20 mg QD (5) Vitamin D deficiency: Code(s): E55.9 - Vitamin D deficiency, unspecified Category: Medical Plan: Continue Vitamin D3 2000 units QD (6) Trigger finger of left hand: Code(s): M65.30 - Trigger finger, unspecified finger Category: Medical Qualifiers: Trigger finger location: unspecified finger Qualified Code(s): M65.30 - Trigger finger, unspecified finger Plan: Will send him for x-rays of the left hand for further evaluation (7) Smoker: Code(s): F17.200 - Nicotine dependence, unspecified, uncomplicated Category: Social Hx Plan: Patient is counseled again on smoking cessation (8) Obesity (BMI 30-39.9): Code(s): E66.9 - Obesity, unspecified Category: Medical Plan: Reinforced diet/exercise as tolerated/lose weight Plan Follow up in 4 months Orders: Orders Complete Blood Count Auto Diff 4 Months D64.9 - Anemia, unspecified Comprehensive [place]. Panel Fast 4 Months E78.00 - Pure hypercholesterolemia, unspecified Hemoglobin A1c 4 Months E11.9 - Type 2 diabetes mellitus without complications XR hand LT min 3V 04/13/24 M79.642 - Pain in left hand Lipid Panel 4 Months E78.00 - Pure hypercholesterolemia, unspecified TSH reflex Free T4 4 Months E78.00 - Pure hypercholesterolemia, unspecified Medications: Refilled cholecalciferol (vitamin D3) 50 mcg PO DAILY 90 days 90 caps 3RF E55.9 - Vitamin D deficiency, unspecified metformin ER 500 mg PO DAILY 90 days 90 tabs 1RF On Hold glipizide ER Hold Comment: Doctor's Order 5 mg PO DAILY 90 tabs 1RF E11.65 - Type 2 diabetes mellitus with hyperglycemia
[2024-04-13 15:52] VITALS: BP 120/70; PULSE 98; O2SAT 96; BMI 31.8
--- OUTSIDE RECORDS SUMMARY | 2024-04-18 10:53 | XMS_ITS | Continuity of Care Document ---
Author Organization 1bib [facility] vices Address [address] [place] [address] Phone Care Team Providers Care Clinical Resource Director Name Role Phone Jacob Cain APRN Unavailable [...] Diagnoses Date Provider Providers Copied on Encounter [facility], [address] [place] [address], [id number], tel:[phone] [facility] Adult Medicine No Information 7 [facility]. [address], [id number] [place], [address], [place]. tel:[phone] OFFICE/OUTPA TIENT VISIT, [facility], [address] [place], [address], tel:[phone] [facility] Podiatry Diabetic Foot Exam (chief complaint) Body mass index (BMI) 35.0-35.9, adultEncounter for screening for diabetes mellitusType 2 diabetes mellitus without complications 7 Josias Navarro. [address], [id number] [place], [place], [id number], [place]. tel:[phone] OFFICE/OUTPA TIENT VISIT, [facility], [address] [place], [address], [place] tel:[phone] [facility] Adult Medicine [place] Routine follow up visit (chief complaint)C hronic Conditions (chief complaint) Body mass index (BMI) 35.0-35.9, adultEncounter for screening for diabetes mellitusEncounte r for general adult medical examination without abnormal findingsType 2 diabetes mellitus without complicationsEss ential (primary) hypertensionObst ructive sleep apnea (adult) (pediatric) No Information [facility], [address] [place] [address], [address], [place] tel:[phone] [facility] Dental Encounter for dental exam and cleaning w/o abnormal findings Bart Jose. [address], [id number] [place], [place], [id number], [place]. tel:[phone] OFFICE/OUTPA TIENT VISIT, [facility], [address] [place] [address], [id number], [place] tel:[phone] [facility] Adult Medicine [place] Establish Care (chief complaint)A bdominal lumps (chief complaint)C hronic Conditions (chief complaint) Body mass index (BMI) 35.0-35.9, adultEncounter for screening for diabetes mellitusEncounte r for screening, unspecifiedEncou nter for general adult medical examination without abnormal findingsObstruct rosario sleep apnea (adult) (pediatric)Gastr o-esophageal reflux disease without esophagitisType 2 diabetes mellitus without complicationsEss ential (primary) hypertension No Information OFFICE/OUTPA TIENT VISIT, [facility], [address] [place] [address], [address], [place] tel:[phone] [facility] Adult Medicine Chest Pain (chief complaint)M ed Refill (chief complaint)L ab Results (chief complaint)d iabetes (chief complaint) AnginaUnspecifie d essential hypertensionDiab etes mellitus without mention of complication, type II or unspecified type, not stated as uncontrolledGERD - Gastro-esophagea l reflux diseaseUnspecifi ed sleep apneaVaccination against viral hep 5 No Information OFFICE/OUTPA TIENT VISIT, [facility], [address] [place] [address], [id number], [place] tel:[phone] [facility] Adult Medicine Est PCP (chief complaint) DiabetesHTN 4 No Information Family History Family Member Type Diagnosis Age At Onset No Information Immunizations Vaccine Date Status Comments Hep B (adult) administered Source: [facility] munization Record Flu (split) (3 yrs or older) administered Note: VIS given to patient. ; Source: New Immunization Record Payers Payer name Insurance type Covered green party ID Yoselyn burroughs(s) MOHAMUD Hopper [id number] MOHAMUD Hopper [id number] MOHAMUD Hopper [id number] Social History Type Description Quantity Date Captured [...] medications.. Est PCP [place] from [place]. Wants to set new PCP. Have not [...] to Body mass index (BMI) 35.0-35.9, adult ??? Follow up on September 29 as sched uled Related to Obstructive sleep apnea (adult) (pediatric) ??? Return to the Cl inic if you have any problems or concerns: ??? Return to the Clinic in 2 months to follow up on the diabetes. Related to Encounter for general adult medical examination without abnormal findings ??? Continue all you r medications as prescribed. Call or come to the Clinic if you are having any side effects or problems with your medications. Please call your pharmacy when you need refills. Related to Type 2 diabetes mellitus without complications ??? Continue all you r medications as prescribed. Call or come to the Clinic if you are having any side effects or problems with your medications. Please call your pharmacy when you need refills. Related to Essential (primary) hypertension Weight monitoring Related to Bod y mass index (BMI) 35.0-35.9, adult Dietary management e ducation, guidance, and counseling Related to Body mass index (BMI) 35.0-35.9, adult ??? Prescriptions (m etformin) were written for you today. They were sent electronically to your pharmacy Related to Type 2 diabetes mellitus without complications ??? Prescriptions (losartan/hydrochlorothiazide) were written for you today. They were sent electronically to your pharmacy Related to Essential (primary) hypertension ??? Prescriptions (p antoprazole) were written for you today. They were sent electronically to your pharmacy Related to Gastro-esophageal reflux disease without esophagitis ??? Our Referral Dep artment will contact you with an appointment information as soon as the referral has been completed.??? You are being referred for evaluation and treatment of sleep apnea and snoring. Related to Obstructive sleep apnea (adult) (pediatric) ??? Laboratory studi es were ordered today. Please go to the lab to have your blood drawn. ??? Return to the Clinic if you have any problems or concerns: ??? Return to the Clinic in about a [...] not desired to remain on this medication shelter. Related to GERD - Gastro-esophageal reflux disease [...] uncontrolled ER evaluation to rul e out ND verses anxiety. Related to Angina Medications refilled [...]
== END 2024-04-13 16:20 | disposition home or self-care (01) ==
PROVIDERS: PCP Internal Medicine; Visit Provider Internal Medicine
DX: E11.65 Type 2 diabetes mellitus with hyperglycemia (principal); E78.00 Pure hypercholesterolemia, unspecified; I10 Essential (primary) hypertension; K21.9 Gastro-esophageal reflux disease without esophagitis; E66.9 Obesity, unspecified; M65.322 Trigger finger, left index finger; Z68.31 Body mass index [BMI] 31.0-31.9, adult; E55.9 Vitamin D deficiency, unspecified; F17.200 Nicotine dependence, unspecified, uncomplicated

== ENCOUNTER → 2024-04-13 15:41 | Outpatient (BNVA) | payer OTHER, SELFPAY | PROVIDERS: PCP Internal Medicine; Visit Provider Internal Medicine | DX: E11.65 Type 2 diabetes mellitus with hyperglycemia (principal); E78.00 Pure hypercholesterolemia, unspecified; I10 Essential (primary) hypertension; K21.9 Gastro-esophageal reflux disease without esophagitis; E55.9 Vitamin D deficiency, unspecified; M65.30 Trigger finger, unspecified finger; E66.9 Obesity, unspecified; Z68.31 Body mass index [BMI] 31.0-31.9, adult; F17.210 Nicotine dependence, cigarettes, uncomplicated; Z79.84 Long term (current) use of oral hypoglycemic drugs; Z79.899 Other long term (current) drug therapy | CPT/HCPCS: 96127 ==

== ENCOUNTER 2024-07-31 10:34 | Emergency (ER) | payer OTHER, SELFPAY ==
--- NOTE | ~2024-07-31 | XR_ITS ---
EXAMINATION: XR CHEST CLINICAL INFORMATION: cough COMPARISON: April 26, 2022. TECHNIQUE: 2 views of the chest were obtained. FINDINGS: No consolidation, pleural effusion or pneumothorax. No hyperinflation. Probable pleural thickening, small volume right lower hemithorax. Cardiomediastinal silhouette size is normal. Multilevel thoracic and upper lumbar spondylosis. XR/XR chest 2V IMPRESSION: No acute airspace disease. Electronically signed by: Delgado Oscar MD 07/31/2024 11:18 AM EDT
[2024-07-31 10:57] VITALS: BP 142/96; PULSE 107; RESP 18; TEMP 36.8; O2SAT 96; BMI 30.6
[2024-07-31 11:24] LABS: MANUAL DIFF FLAG NO
[2024-07-31 11:28] LABS: Basophils Percent Auto 0.5 % (0-2); Eosinophils Absolute Auto 0.1 X10*3/uL (0.0-0.4); Eosinophils Percent Auto 3.3 % (0-4); Hematocrit 47.8 % (42.0-52.0); Hemoglobin 17.1 g/dl (14.0-18.0); Imm Gran Abs Auto 0.01 X10*3/uL (0.00-0.03); Imm Gran Pct Auto 0.2 % (0.0-0.4); Lymphocytes Percent Auto 22.6 % (20-40); Mean Corpuscular HGB Conc 35.8 g/dl (31.0-36.0); Mean Corpuscular Hemoglobin 30.9 pg (27.0-33.0); Mean Corpuscular Volume 86.4 fL (80.0-98.0); Mean Platelet Volume 9.6 fL (9.4-12.4); Monocytes Absolute Auto 0.5 X10*3/uL (0.1-1.2); Monocytes Percent Auto 12.1 % (2-11); Neutrophils Absolute Auto 2.6 x10*3/uL (2.0-8.3); Neutrophils Percent Auto 61.3 % (45-73); Platelet Count 223 X10*3/uL (160-400); Red Blood Count 5.53 X10*6/uL (4.60-5.80); Red Cell Distribution Width 11.6 % (11.0-16.0); White Blood Count 4.3 X10*3/uL (4.8-10.8)
[2024-07-31 11:29] LABS: Appearance Urine Clear; Color Urine Yellow; Glucose Urine UA >=1000 mg/dL (Negative); Leukocyte Esterase Urine Negative (Negative); Nitrite Urine Negative (Negative); PH 5.5 (5.0-9.0); Specific Gravity - Urine >= 1.030 (1.005-1.025); UMIC TRIGGER UACC YES; Urine Blood Negative (Negative); Urine Ketones Trace mg/dL (Negative); Urine Protein Negative (Neg-Trace)
[2024-07-31 11:34] LABS: Bacteria Urine None Seen (None Seen); Hyaline Casts Urine 0-2 /LPF (0-2); RBC Urine 0-2 /HPF (0-2); Squamous Epithelial Cell Urine 0-2 /HPF (0-2); WBC Urine 0-5 /HPF (0-5)
[2024-07-31 12:20] LABS: Alanine Aminotransferase 24 U/L (0-40); Alkaline Phosphatase 116 U/L (39-117); Anion Gap 11 (12-20); Aspartate Amino Transferase 22 U/L (5-37); Bilirubin Total 0.5 mg/dL (0.0-1.0); Blood Urea Nitrogen 11 mg/dL (9-16); Calcium 8.8 mg/dL (8.4-10.2); Carbon Dioxide 23 mmol/L (22-29); Chloride 108 mmol/L (96-108); Creatinine Clr Calc Pharmacy 106.5; Estimated Glomerular Filt Rate > 60; Potassium 3.7 mmol/L (3.3-5.1); Sodium 138 mmol/L (135-145)
[2024-07-31 12:21] LABS: Glucose Random 353 mg/dL (60-115)
[2024-07-31 12:26] LABS: Influenza A PCR NEGATIVE (Negative); Influenza B PCR NEGATIVE (Negative); Resp Syncy Virus RNA Qual PCR NEGATIVE (Negative); SARS COV2 PCR INHOUSE NEGATIVE (Negative)
--- NOTE | 2024-07-31 16:03 | ECG_ITS ---
Test Reason : chest pain Blood Pressure : */* mmHG Vent. Rate : 91 BPM Atrial Rate : 91 BPM P-R Int : 158 ms QRS Dur : 86 ms QT Int : 364 ms P-R-T Axes : 60 -4 32 degrees QTcB Int : 447 ms Normal sinus rhythm Normal ECG When compared with ECG of 18-May-2011 14:55, No significant change was found Referred By: Cinda Pino Electronically Signed By: ROSIO DAVID MD
--- NOTE | 2024-07-31 16:16 | ED.URI ---
HPI - URI/Sore Throat General Chief Complaint: Upper Respiratory Symptoms Stated Complaint: Cough, pain L side Time Seen by Provider: 07/31/24 15:41 Source: patient, RN notes reviewed and old records reviewed Mode of arrival: ambulatory Limitations: no limitations History of Present Illness ED Provider: Cinda Pino PA-C HPI Narrative: 54 year old male with a past medical history of diabetes mellitus, HTN, GERD, hypercholesterolemia, and cigarette smoking who presents to the ED today c/o intermittent dry cough and left lower back pain, worse with coughing x 1 mos. Reports chest discomfort worse w/coughing, mild SOB, subj fever, chills, headache, myalgias, rhinorrhea, sore throat, and diarrhea. Denies recent trauma or falls, abdominal pain, nausea, vomiting, dysuria, hematuria, leg swelling, or history of blood clots. He denies recent travel or sick contacts. MD elicited complaint: cough Onset (ago): week(s) Consistency: intermittent and progressively worsening Severity: moderate Able to tolerate fluids by mouth: Yes Associated symptoms: fever, chills, myalgias, diaphoresis, headache, rhinorrhea, nasal congestion, sore throat, cough, chest pain, shortness of breath and diarrhea Related Data Previous Rx's ?Medication ?Instructions ?Recorded blood-glucose meter (FreeStyle #1 ea 09/06/22 Lite Meter kit) lancets 28 gauge (FreeStyle #100 ea 09/06/22 Lancets) Farxiga 10 mg tablet 10 mg PO QAM 90 days #90 tabs 12/05/23 (dapagliflozin propanediol) ibuprofen 600 mg tablet 600 mg PO Q6H PRN fever or pain 12/05/23 #30 tabs glipizide 5 mg tablet, extended 5 mg PO DAILY #90 tabs 12/06/23 release 24 hr atorvastatin 10 mg tablet 10 mg PO BEDTIME #90 tabs 02/09/24 losartan 50 mg tablet 50 mg PO DAILY #90 tabs 02/09/24 omeprazole 20 mg capsule,delayed 20 mg PO DAILY #90 caps 02/09/24 release cholecalciferol (vitamin D3) 50 50 mcg PO DAILY 90 days #90 caps 04/13/24 mcg (2,000 unit) capsule metformin 500 mg tablet,extended 500 mg PO DAILY 90 days #90 tabs 04/13/24 release 24 hr benzonatate 100 mg capsule 100 mg PO TID PRN cough #14 caps 07/31/24 cyclobenzaprine 5 mg tablet 5 mg PO Q8H PRN pain (scale score 07/31/24 7-10) 5 days #14 tabs lidocaine 5 % topical patch 1 patch topical DAILY PRN pain #30 07/31/24 (Lidoderm) ea prednisone 20 mg tablet 40 mg (2 x 20 mg) PO DAILY 5 days 07/31/24 #10 tabs Allergies Allergy/AdvReac Type Severity Reaction Status Date / Time aspirin [Aspirin] Allergy Unknown UNKNOWN Verified 07/31/24 10:59 lisinopril Allergy Unknown Cough Verified 07/31/24 10:59 penicillin V Allergy Unknown unknown Verified 07/31/24 10:59 Penicillins Allergy Unknown UNKNOWN Verified 07/31/24 10:59 metformin AdvReac Intermediate Diarrhea Verified 07/31/24 10:59 Review of Systems Review of Systems: Yes all other systems are reviewed and are negative Constitutional: Constitutional: Reports as per [facility] Past Medical History Attestation statement: The following information was validated with the patient. Source: old records reviewed Medical History Vitamin D deficiency Smoker Pure hypercholesterolemia GERD without esophagitis Obesity (BMI 30-39.9) Benign essential hypertension Diabetes mellitus Surgical History Hx of colonoscopy History of esophagogastroduodenoscopy (EGD) History of carpal tunnel surgery Family History Family History Mother Diabetes BP (high blood pressure) Brother Myocardial infarction, Onset Age: 41 Father No problems noted. Maternal Grandmother Cancer Sister No problems noted. Son In good health Son In good health Social History Social History Housing: Apartment Alcohol intake: current Alcohol intake frequency: a few times a month Patient Tobacco Use Status: Current everyday Tobacco user Tobacco use type: Cigarette Cigarette Packs Per Day: 0.25 Cigarettes Per Day: 5 e-Cigarette/Vaping Use: Never Used Second Hand Smoke Exposure: Yes Advance Directives: Yes Advance Directives on File: Yes Advance Directives Date on File: 07/24/20 service: No Current occupational status: employed Current occupational exposures/hazards: No Cognitive needs: No Hearing needs: No Vision needs: Yes (glasses) Physical Exam Vital Signs: Vital Signs: Last Vital Signs Temp 98.3 F 07/31/24 17:36 Pulse 107 H 07/31/24 17:36 Resp 18 07/31/24 17:36 BP 142/96 H 07/31/24 17:36 Pulse Ox 96 07/31/24 17:36 O2 Del Method Room Air 07/31/24 17:36 BMI result Body Mass Index 30.6 Const: General: cooperative, healthy appearing and no acute distress Orientation/consciousness: patient oriented x3 Limitations: no limitations HEENT: Other: Mild erythema to soft palate and posterior pharynx. No exudate or oral lesions. Head: Yes normal to inspection and Yes atraumatic Ears: hearing grossly normal bilaterally General nose exam: Normal external nose present Face and sinus: Yes normal facial exam Mouth: moist mucous membranes Throat: Yes uvula midline, No peritonsillar mass, No uvula laterally displaced and No uvular edema Eyes: General: appearance normal, both eyes and all related structures EOM: EOMs intact bilaterally Neck: Neck: Yes normal visual inspection and Yes no meningeal signs Resp: Effort & Inspection: normal respiratory effort and no respiratory distress Auscultation: clear to auscultation bilaterally, no crackles, no rales, no rhonchi and no wheezes Cardio: Rate: regular rate and tachycardic Heart sounds: S1 normal heart sound present and S2 normal heart sound present GI: Inspection: Yes normal to inspection Palpation (GI): Soft to palpation, nontender, no guarding and not rigid : General: Yes no CVA tenderness Back/Spine/Pelvis: Other: No midline cervical/thoracic/lumbar spinous tenderness/step-off or deformity. +ttp to left lower lumbar region. No rash/erythema/ecchymosis or crepitus Back: no CVA tenderness Skin: Rashes: no rashes Wounds: no wounds Neuro: General: patient oriented x3, gait normal, tone normal, moves all extremities, no meningeal signs and no focal motor deficits Cranial nerves: Yes CN's II-XII intact bilaterally Gait exam (Neuro): Normal gait present Motor exam (neuro): 5/5 motor strength present throughout Extrem: General: Yes normal to inspection and Yes no pedal edema Course Course Course Narrative: -1712--no leukocytosis. initial glucose 353 > patient admits to taking diabetic medication today. No anion gap. No evidence of DKA at this time -troponin negative -UA with ketones, not infected. Viral testing negative XR chest 2V IMPRESSION: No acute airspace disease. > repeat POC 227 Results discussed with patient including worrisome signs and symptoms and strict return precautions, and when to return to the emergency department. They verbalized understanding and feel safe for discharge at this time. Medications Administered Discontinued Medications Generic Name Dose Route Start Last Admin Trade Name Minoq PRN Reason Stop Dose Admin Albuterol Sulfate 4 puff 07/31/24 16:13 07/31/24 16:34 Albuterol Sulfate 90 Mcg 8 Gm Inhaler INHALE 07/31/24 16:14 4 puff ONCE ONE Administration Benzonatate 100 mg 07/31/24 16:13 07/31/24 16:34 Benzonatate 100 Mg Capsule PO 07/31/24 16:14 100 mg ONCE ONE Administration Cyclobenzaprine HCl 5 mg 07/31/24 16:13 07/31/24 16:33 Cyclobenzaprine Hcl 5 Mg Tablet PO 07/31/24 16:14 5 mg ONCE ONE Administration Hydrocodone Bit/Homatropine Methylb 5 ml 07/31/24 16:13 07/31/24 16:35 Hydrocodone/Homat 5/1.5/5 Ml 5 Ml Syrup PO 07/31/24 16:14 5 ml ONCE ONE Administration Medical Decision Making Medical Decision Making [facility] Narrative: 54 year old male with a past medical history of diabetes mellitus, HTN, GERD, hypercholesterolemia, and cigarette smoking who presents to the ED today c/o intermittent dry cough and left lower back pain, worse with coughing x 1 mos. Reports chest discomfort worse w/coughing, mild SOB, subj fever, chills, headache, myalgias, rhinorrhea, sore throat, and diarrhea. On exam initially mildly tachycardic, NAD, nontoxic appearing, physical exam as noted above, lungs CTA, left lower lumbar reproducible back pain without red flag symptoms. No midline spinous tenderness. Ambulating with steady gait. Concern for viral illness vs pneumonia vs bronchitis. Rule out atypical ACS. Lower suspicion for PE/DVT with intermittent symptoms and reproducible MSK pain. Unlikely cauda equina, cord compression or fracture. Lower suspicion for renal stone/pyelo with location of pain Plan: EKG, labs, UA, CXR, viral testing, pain control, re-evaluate Please refer to course for remaining clinical decision making, interpretation of labs/imaging results, and discussions with consultants and/or family members. Differential Diagnosis Differential Diagnoses: The differential diagnosis associated with the presentation includes As above Admission/Observation Consideration of admission/observation: Escalation of care including admission/observation considered Lab Data MDM Lab Attestation statement: I reviewed the patient's lab results. 07/31/24 11:16 07/31/24 11:16 Labs: Lab Results 07/31/24 07/31/24 Range/Units 11:16 16:50 WBC 4.3 L (4.8-10.8) X10*3/uL RBC 5.53 (4.60-5.80) X10*6/uL Hgb 17.1 (14.0-18.0) g/dl Hct 47.8 (42.0-52.0) % MCV 86.4 (80.0-98.0) fL MCH 30.9 (27.0-33.0) pg MCHC 35.8 (31.0-36.0) g/dl RDW 11.6 (11.0-16.0) % Plt Count 223 (160-400) X10*3/uL MPV 9.6 (9.4-12.4) fL Immature Gran % (Auto) 0.2 (0.0-0.4) % Neut % (Auto) 61.3 (45-73) % Lymph % (Auto) 22.6 (20-40) % [place] % (Auto) 12.1 H (2-11) % Eos % (Auto) 3.3 (0-4) % Baso % (Auto) 0.5 (0-2) % Lymph # (Auto) 1.0 L (1.2-4.9) X10*3/uL [place] # (Auto) 0.5 (0.1-1.2) X10*3/uL Eos # (Auto) 0.1 (0.0-0.4) X10*3/uL Baso # (Auto) 0.0 (0.0-0.2) X10*3/uL Abs Immat Gran (auto) 0.01 (0.00-0.03) X10*3/uL Absolute Neuts (auto) 2.6 (2.0-8.3) x10*3/uL Absolute Nucleated RBC 0.000 (0.0-0.012) X10*3/uL Nucleated RBC % (auto) 0.0 (0.0-0.2) /100WBC Sodium 138 (135-145) mmol/L Potassium 3.7 (3.3-5.1) mmol/L Chloride 108 (96-108) mmol/L Carbon Dioxide 23 (22-29) mmol/L Anion Gap 11 L (12-20) BUN 11 (9-16) mg/dL Creatinine 0.89 (0.5-1.4) mg/dL Estim Creat Clear Calc 106.5 Estimated GFR > 60 POC Glucose 227 H (60-115) mg/dL Random Glucose 353 H* (60-115) mg/dL Calcium 8.8 (8.4-10.2) mg/dL Total Bilirubin 0.5 (0.0-1.0) mg/dL AST 22 (5-37) U/L ALT 24 (0-40) U/L Alkaline Phosphatase 116 (39-117) U/L Troponin I High Sens < 2.7 (<3.5-35.0) ng/L Total Protein 7.0 (6.5-8.0) g/dL Albumin 4.0 (3.5-5.0) g/dL Urine Color Yellow Urine Appearance Clear Urine pH 5.5 (5.0-9.0) Ur Specific [place] >= 1.030 H (1.005-1.025) Urine Protein Negative (Neg-Trace) mg/dL Urine Glucose (UA) >=1000 H (Negative) mg/dL Urine Ketones Trace (Negative) mg/dL Urine Blood Negative (Negative) Urine Nitrite Negative (Negative) Ur Leukocyte Esterase Negative (Negative) Urine RBC 0-2 (0-2) /HPF Urine WBC 0-5 (0-5) /HPF Ur Squamous Epith Cells 0-2 (0-2) /HPF Urine Bacteria None Seen (None Seen) Hyaline Casts 0-2 (0-2) /LPF Influenza Type A (PCR) NEGATIVE (Negative) Influenza Type B (PCR) NEGATIVE (Negative) RSV RNA Qual (PCR) NEGATIVE (Negative) SARS-CoV-2 RNA (RT-PCR) NEGATIVE (Negative) Independent Interpretation I performed an independent interpretation of an: EKG (My interpretation EKG normal sinus rhythm rate of 91. MD interval 158. No significant change when compared to prior. No STEMI ) and Plain X-Ray Radiology Impression Discussion of test interpretation with radiology: I have reviewed the radiologist's reading. External Record Review External record reviewed: Inpatient record, Office record, Outpatient record, Prior outpatient labs, Prior outpatient radiology, Primary care record and Outside ED record Tests considered The following testing was considered but not selected: As above Prescription Management I considered prescription management with: Pain Medication Chronic Conditions Patient?s care impacted by: Other Social Determinants Patient?s care significantly limited by Social Determinants of Health including: Other Social Determinant of Health Discharge Plan Discharge Clinical Impression: Bronchitis Patient Disposition: Home, Self-Care Instructions: Acute Bronchitis (ED) Additional Instructions: Your blood work is reassuring today. Your sugar was initially elevated, please monitor this closely at home Your x-ray does not show pneumonia. We suspect you have bronchitis. Prednisone as a steroid please take as prescribed until completion You tested negative for COVID, flu, RSV Use inhaler as needed for shortness of breath/wheezing Edward Hunt are for cough Follow up with her doctor If her symptoms persist or worsen, pain is unbearable, you have constant worsening shortness of breath, swelling in her legs, fever return to the ED Prescriptions: New prednisone 20 mg tablet 40 mg PO DAILY 5 Days Qty: 10 0RF benzonatate 100 mg capsule 100 mg PO TID PRN (Reason: cough) Qty: 14 0RF lidocaine [Lidoderm] 5 % adhesive patch,medicated 1 patch topical DAILY MDD remove after 12 hours PRN (Reason: pain) Qty: 30 0RF Rx Instructions: leave on most painful area for up to 12 hrs cyclobenzaprine 5 mg tablet 5 mg PO Q8H PRN (Reason: pain (scale score 7-10)) 5 Days Qty: 14 0RF No Action (DME) blood-glucose meter [FreeStyle Lite Meter] Kit See Rx Instructions .ROUTE .MEDSUPPLY Qty: 1 0RF Rx Instructions: As directed (DME) lancets [FreeStyle Lancets] 28 gauge misc See Rx Instructions .ROUTE .MEDSUPPLY Qty: 100 12RF Rx Instructions: As directed once a day omeprazole 20 mg capsule,delayed release(DR/EC) 20 mg PO DAILY Qty: 90 1RF atorvastatin 10 mg tablet 10 mg PO BEDTIME Qty: 90 1RF losartan 50 mg tablet 50 mg PO DAILY Qty: 90 1RF dapagliflozin propanediol [Farxiga] 10 mg tablet 10 mg PO QAM 90 Days Qty: 90 3RF ibuprofen 600 mg tablet 600 mg PO Q6H PRN (Reason: fever or pain) Qty: 30 1RF Rx Instructions: Take with food, only as needed for pain glipizide 5 mg tablet extended release 24hr 5 mg PO DAILY Qty: 90 1RF cholecalciferol (vitamin D3) 50 mcg (2,000 unit) capsule 50 mcg PO DAILY 90 Days Qty: 90 3RF metformin 500 mg tablet extended release 24 hr 500 mg PO DAILY 90 Days Qty: 90 1RF Referrals: Gregorio Bhatt MD [Primary Care Provider] - 3 days Stand Alone Forms: Work/School Release Interventions: ED Discharge Assessment Last Done: 07/31/24 17:36 Discharge Date/Time: 07/31/24 17:37 Print Language: Slovak
[2024-07-31] MEDS: Cyclobenzaprine HCl 5 MG TABLET PO (16:33)
[2024-07-31] MEDS: Benzonatate 100 MG CAPSULE PO (16:34)
[2024-07-31] MEDS: Albuterol Sulfate 90 MCG 8 GM INHALER 4 PUFF INHALE (16:34)
[2024-07-31] MEDS: HYDROcodone/Homat 5/1.5/5 ML 5 ML SYRUP PO (16:35)
[2024-07-31 16:47] LABS: Troponin-I High Sensitivity < 2.7 ng/L (<3.5-35.0)
--- NOTE | 2024-07-31 17:15 | PC.NURSE ---
Repeat POC Glucose 227. Fingerstick to left index finger. STEPHANIE Pino aware.
[2024-07-31 17:21] LABS: Glucose, Whole Blood 227 mg/dL (60-115)
[2024-07-31 17:36] VITALS: BP 142/96; PULSE 107; RESP 18; TEMP 36.8; O2SAT 96
== END 2024-07-31 17:37 | disposition home or self-care (01) ==
PROVIDERS: Physician Assistant; Emergency Provider Emergency Medicine Emergency Medical Services; PCP Internal Medicine
DX: J40 Bronchitis, not specified as acute or chronic (principal); R05.9 Cough, unspecified; R07.9 Chest pain, unspecified; I10 Essential (primary) hypertension; E11.9 Type 2 diabetes mellitus without complications; Z03.818 Encounter for observation for suspected exposure to other biological agents ruled out
CPT/HCPCS: 0241U; 71046; 80053; 81001; 82947; 84484; 85025; 93005; 99284

== ENCOUNTER → 2024-07-31 11:00 | Outpatient (BNV) | payer OTHER, SELFPAY | PROVIDERS: PCP Internal Medicine; Visit Provider Radiology Diagnostic Radiology | DX: R05.9 Cough, unspecified (principal) | CPT/HCPCS: 71046 ==

== ENCOUNTER → 2024-07-31 16:03 | Outpatient (BNV) | payer OTHER, SELFPAY | PROVIDERS: Emergency Provider Emergency Medicine Emergency Medical Services; PCP Internal Medicine; Visit Provider Internal Medicine Cardiovascular Disease | DX: R07.9 Chest pain, unspecified (principal) | CPT/HCPCS: 93010 ==

== ENCOUNTER 2024-08-20 16:31 | Outpatient (AMB) | payer OTHER, SELFPAY ==
[2024-08-20 16:32] VITALS: BP 128/84; PULSE 91; O2SAT 97; BMI 31.2
--- NOTE | 2024-08-20 16:32 | A.OFFPC_ITS ---
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 Accompanied by: Self / Same As Patient Allergies aspirin [Aspirin] Allergy (Unknown, Verified 08/20/24 16:33) UNKNOWN lisinopril Allergy (Unknown, Verified 08/20/24 16:33) Cough penicillin V Allergy (Unknown, Verified 08/20/24 16:33) unknown Penicillins Allergy (Unknown, Verified 08/20/24 16:33) UNKNOWN metformin Adverse Reaction (Intermediate, Verified 08/20/24 16:33) Diarrhea Tobacco use date assessed: 08/20/24 Dental Screening Dental Screen Date: 08/20/24 Did you have a dental visit in the last 12 months?: No Did you have a dental problem in the last 6 months where you did not have access to dental care?: No Was dental information given to patient?: No HPI PHYSICAL HPI Details 8.9% [facility] Medical History Vitamin D deficiency Smoker Pure hypercholesterolemia GERD without esophagitis Obesity (BMI 30-39.9) Benign essential hypertension Diabetes mellitus Surgical History Hx of colonoscopy History of esophagogastroduodenoscopy (EGD) History of carpal tunnel surgery Family History Mother Diabetes BP (high blood pressure) Brother Myocardial infarction, Onset Age: 41 Father No problems noted. Maternal Grandmother Cancer Sister No problems noted. Son In good health Son In good health Social History (Updated 08/20/24 @ 17:10 by Gregorio Bhatt MD) Housing: Apartment Alcohol intake: current Alcohol intake frequency: a few times a month Patient Tobacco Use Status: Former Tobacco user Tobacco use type: Cigarette and Smokeless Tobacco Cigarette Packs Per Day: 0.25 Cigarettes Per Day: 5 e-Cigarette/Vaping Use: Never Used Second Hand Smoke Exposure: Yes Advance Directives Date on File: 07/24/20 service: No Current occupational status: employed Current occupational exposures/hazards: No Cognitive needs: No Hearing needs: No Vision needs: Yes (glasses) Questionnaire PHQ-9 Over the last 2 weeks, how often have you been bothered by any of the following problems? 1. Little interest or pleasure in doing things: several days 2. Feeling down, depressed, or hopeless: nearly every day 3. Trouble falling or staying asleep, or sleeping too much: not at all 4. Feeling tired or having little energy: several days 5. Poor appetite or overeating: nearly every day 6. Feeling bad about yourself - or that you are a failure or have let yourself or your family down: several days 7. Trouble concentrating on things, such as reading the newspaper or watching television: not at all 8. Moving or speaking so slowly that other people could have noticed. Or the opposite - being so fidgety or restless that you have been moving around a lot more than usual: not at all 9. Thoughts that you would be better off or of hurting yourself in some way: not at all Total score: 9 Depression Screening Interpretation: Positive Depression Screening Follow-up: Existing condition and In treatment Depression Screening Done: Yes 51788 - PHQ-9 Billing: Yes Source: Developed by Drs. Alec Delcid, Jerrica Arriaga, Gerry Carreon and colleagues, with an educational stephanie from [employer]. Thrive Questionnaire Date Thrive assessed: 08/20/24 I am a: Patient What is your living situation today?: I have a steady place to live Within the past 12 months, did the food you bought not last and you didn't have the money to get more?: Never true Within the past 12 months, did you worry whether your food would run out before you got money to buy more?: Never true Do you have trouble paying for medicines?: No Do you have trouble getting transportation to medical appointments?: No Do you have trouble paying your heating and electricity bill?: No Do you have trouble taking care of your child, family member or friend?: No Do you have trouble with day-to-day activities such as bathing, preparing meals, shopping, managing finances, etc.?: No Are you currently unemployed and looking for a job?: No Are you interested in more education?: No Please select the resources that you would like help with: None Currently or been in a relationship where the following occur: No concerns reported THRIVE Score: 0 AUDIT C Alcohol Use Questionnaire (AUDIT-C) 1. How often do you have a drink containing alcohol?: 2-4 times a month 2. How many drinks containing alcohol do you have on a typical day when you are drinking?: 1 or 2 3. How often do you have six or more drinks on one occasion?: Never Total Score: 2 Score Reviewed/Action Taken: Yes YOAV-7 AMB Questionnaire YOAV-7 Date YOAV - 7 assessed: 08/20/24 Feeling nervous, anxious, or on edge: 0 = Not at all Not being able to stop or control worryin = Not at all Worrying too much about different things: 0 = Not at all Trouble relaxin = Not at all Being so restless that it is hard to sit still: 0 = Not at all Becoming easily annoyed or irritable: 0 = Not at all Feeling afraid as if something awful might happen: 0 = Not at all Total YOAV-7 score (0-4 normal; 5-9 mild; 10-14 moderate; 15-21 severe): 0 Source: Developed by Drs. Alec Delcid, Jerrica Arriaga, Gerry Carreon and colleagues, with an educational stephanie from [employer]. Physical exam (Primary Care) Vital Signs: Last Vital Signs Pulse 91 08/20/24 16:32 BP 128/84 08/20/24 16:32 Pulse Ox 97 08/20/24 16:32 Oxygen Delivery Method Room Air 08/20/24 16:32 BMI result Body Mass Index 31.2 Tobacco/Smoking Status: Tobacco use Status Tobacco use date assessed 08/20/24 08/20/24 16:40 Patient Tobacco Use Status Former Tobacco user 08/20/24 17:10 Tobacco use type Cigarette,Smokeless Tobacco 08/20/24 17:10 e-Cigarette/Vaping Use Never Used 08/20/24 17:10 PHQ-9: PHQ-9 Score PHQ-9: Total score 9 08/20/24 17:10 Depression Screening Interpretation: Positive Depression Screening Follow-up: Existing condition and In treatment Thrive Assessment: Date of Thrive Assessment Date Thrive assessed 08/20/24 08/20/24 16:40 Currently or been in a relationship where the following occur: No concerns reported Results AMB Hemoglobin A1c AMB Hemoglobin A1c 8.9 % Last Edit by PRABHU Garcia on 08/20/24 17:27 Coding Additional Codes PHQ-9 - 77797 - PHQ-9 Billing: Yes ([id number]) Assessment & Plan Assessment & Plan Orders: Orders Complete Blood Count Auto Diff 4 Months D64.9 - Anemia, unspecified Comprehensive [place]. Panel Fast 4 Months E78.00 - Pure hypercholesterolemia, unspecified Lipid Panel 4 Months E78.00 - Pure hypercholesterolemia, unspecified Microalbumin, Random (w Creat) 4 Months E11.9 - Type 2 diabetes mellitus without complications TSH reflex Free T4 4 Months E78.00 - Pure hypercholesterolemia, unspecified Vitamin D 25-OH Total 4 Months E55.9 - Vitamin D deficiency, unspecified Prostate Specific Antigen Scr 4 Months Z00.00 - Encounter for general adult medical examination without abnormal findings Hemoglobin A1c 4 Months E11.9 - Type 2 diabetes mellitus without complications UA CC w/rflx Micro + Cult 4 Months R30.0 - Dysuria AMB Hemoglobin A1c Today E11.65 - Type 2 diabetes mellitus with hyperglycemia Medications: New doxycycline hyclate 100 mg PO BID 7 days 14 caps 0RF sildenafil administer 30 minutes to 4 hours before activity 50 mg PO DAILY PRN 6 tabs 0RF sexual activity
--- OUTSIDE RECORDS SUMMARY | 2024-08-20 18:28 | XMS_ITS | Clinical Summary ---
Author Organization [facility] Address [address] [place] [address] Care Team Providers Care Cutter Grinder Name Role Phone Unavailable Primary Care Provider Unavailabl e Social History Tobacco Use Types Packs/Day Years Used Date Smoking Tobacco: Never Assessed Sex and Gender Information Value Date Recorded Sex Assigned at Not on file Gender Identity Not on file Sexual Orientation Not on file Plan of Treatment Health Maintenance Due Date Last Done Comments Hepatitis C Virus Screening 1972 HIV Screening 01/01/1985 DTaP/Tdap/Td Vaccines (1 - Tdap) 01/01/1991 Hepatitis B Vaccines (1 of 3 - 19+ 3-dose series) 01/01/1991 Pneumococcal Vaccines 50+ (1 of 1 - PCV) 01/01/2022 Zoster (Shingles) Vaccine (1 of 2) 01/01/2022 COVID-19 Vaccine ( - 2023-2 5 season) 2024 Pneumococcal Vaccine: Pediat jimmy (0-5 Years) and At-Risk Patients (6 to 49 Years) Aged Out No longer eligible b ased on patient's age to complete this topic
--- OUTSIDE RECORDS SUMMARY | 2024-08-20 18:28 | XMS_ITS | Clinical Summary ---
Author Organization [facility] Address [address] [place] [address] Care Team Providers Care Turbine Subassembler Name Role Phone Pcp, [facility] Primary Care Provider [phone] Allergies Active Allergy Reactions Criticality Noted Date Comments Aspirin 11/13/2013 Penicillins 11/13/2013 Medications Medication Sig Dispensed Refills Start Date End Date Status GLIPIZIDE PO Take by mouth. 0 Active METFORMIN HCL PO Take by mouth. 0 Acti ve AMLODIPINE BESYLATE PO Take by mouth. 0 Active hydrochlorothiazide (HYDRODIURIL) 25 MG tablet Take 25 mg by mouth daily. 0 Active LOSARTAN POTASSIUM PO Take by mouth. 0 Active ibuprofen (ADVIL,MOTRIN) 600 MG tablet Take 1 tablet (600 mg total) by mouth every 6 (six) hours as needed for pain (or fever). 20 tablet 0 11/14/2013 Active traMADol (ULTRAM) 50 MG tablet Take 50 mg by mouth every 8 (eight) hours as needed. 10 tablet 0 12/01/2014 Active Social History Tobacco Use Types Packs/Day Years Used Date Smoking Tobacco: Former Smokeless Tobacco: Never Alcohol Use Standard Drinks/Week Comments Yes 0 (1 standard drink = 0.6 oz pur e alcohol) Sex and Gender Information Value Date Recorded Sex Assigned at Not on file Gender Identity Not on file Sexual Orientation Not on file Last Filed Vital Signs Vital Sign Reading Time Taken Comments Blood Pressure 128/79 12/01/2014 12:29 PM EDT Pulse 70 12/01/2014 12:29 PM EDT Temperature 36.8 ??C (98.3 ??F) 12/01/2014 12:29 PM E DT Respiratory Rate 16 12/01/2014 12:29 PM EDT Oxygen Saturation 99% 12/01/2014 12:29 PM EDT Inhaled Oxygen Concentration - - Weight 94.8 kg (209 lb) 12/01/2014 10:31 AM EDT Height - - Body Mass Index - - Plan of Treatment Health Maintenance Due Date Last Done Comments Hepatitis B Vaccines (1 of 3 - 3-dose series) 1972 Hepatitis C Screening 1972 COVID-19 Vaccine (#1) 1972 Depression Screening 1984 Preventative Health Evaluation 01/01/1990 DTap / Tdap / Td (1 - Tdap) 01/01/1991 Colon Cancer Screening (Colonoscopy) 01/01/2017 Shingrix-Zoster Vaccine (1 of 2) 01/01/2022 Influenza Vaccine (#1) 2024 Pneumococcal Vaccine Aged Out No long er eligible based on patient's age to complete this topic RSV Ped < 20 months Aged Out No longe r eligible based on patient's age to complete this topic Care Teams Turbine Subassembler Relationship Specialty Start Date End Date Pcp, MD Cyril [address] [place], [place] [id number] PCP - General Basic Sciences Professor 11/06/14
--- OUTSIDE RECORDS SUMMARY | 2024-08-20 18:28 | XMS_ITS | Continuity of Care Document ---
Author Organization [facility] Address [address] [place] [address] Phone Care Team Providers Care Ticket Dispatcher Name Role Phone Jacob Cain APRN Unavailable Unavailab le Allergies, Adverse Reactions, Alerts Substance Reaction Status Criticality Penicillins Unknown Active No Information aspirin Unknown Active No Information Medications Medication Instructions Dosage Effective Dates (start - stop) Status Comments losartan 100 mg-hydrochlorothia zide 25 mg tablet take 1 tablet by oral route every day 1.00 tablet - Active blood pressure monitor kit apply by arm route as directed Not Available - Active I10 -- electronic/au tomatic fluticasone 50 mcg/actuation nasal spray,suspension inhale 1 spray by intranasal route every day in each nostril 50 MCG - Active OneTouch Ultra2 kit inject 1 [...] Provider Providers Copied on Encounter [facility], [address] [place] [address], [facility], [place] tel:[phone] [facility] Adult Medicine No Information [facility]. [address] [place] [address], [id number] [place], [address], [place]. tel:[phone] OFFICE/OUTPA TIENT VISIT, [facility], [address] [place] [address], [facility], tel:[phone] [facility] Podiatry Diabetic Foot Exam (chief complaint) Body mass index (BMI) 35.0-35.9, adultEncounter for screening for diabetes mellitusType 2 diabetes mellitus without complications 7 No Information OFFICE/OUTPA TIENT VISIT, [facility], [address] [place] [address], [facility], [place] tel:[phone] [facility] Adult Medicine [place] Routine follow up visit (chief complaint)C hronic Conditions (chief complaint) Body mass index (BMI) 35.0-35.9, adultEncounter for screening for diabetes mellitusEncounte r for general adult medical examination without abnormal findingsType 2 diabetes mellitus without complicationsEss ential (primary) hypertensionObst ructive sleep apnea (adult) (pediatric) [address] [facility], [address] [place] [address], [facility], tel:[phone] [facility] Dental Encounter for dental exam and cleaning w/o abnormal findings Bart Garcia. [address] [facility], [id number] [place], [place], [id number], . tel:[phone] OFFICE/OUTPA TIENT VISIT, [facility], [address] [place] [address], [address], tel:[phone] [facility] Adult Medicine Ken Establish Care (chief complaint)A bdominal lumps (chief complaint)C hronic Conditions (chief complaint) Body mass index (BMI) 35.0-35.9, adultEncounter for screening for diabetes mellitusEncounte r for screening, unspecifiedEncou nter for general adult medical examination without abnormal findingsObstruct rosario sleep apnea (adult) (pediatric)Gastr o-esophageal reflux disease without esophagitisType 2 diabetes mellitus without complicationsEss ential (primary) hypertension 7 No Information OFFICE/OUTPA TIENT VISIT, [facility], [address] [place] [address], [address], tel:[phone] [facility] Adult Medicine Chest Pain (chief complaint)M ed Refill (chief complaint)L ab Results (chief complaint)d iabetes (chief complaint) AnginaUnspecifie d essential hypertensionDiab etes mellitus without mention of complication, type II or unspecified type, not stated as uncontrolledGERD - Gastro-esophagea l reflux diseaseUnspecifi ed sleep apneaVaccination against viral hep 5 No Information OFFICE/OUTPA TIENT VISIT, [facility], [address] [place] [address], [id number], [place] tel:[phone] [facility] Adult Medicine Est PCP (chief complaint) DiabetesHTN [...] libertarian ID Authoriza tion(s) CHN Husky D [id number] Jarred Hopper [id number] Jarred Hopper [id number] Social History Type Description Quantity Date Captured [...] Care Chronic Conditions *See Chronic Conditions HPI diabetes Risk factors inc lude: obesity. Patient [...] bags. C/o a lot of acid reflux. Lab Results A1c 7.8%Needs Vi tamin D supplementNeeds Hep B vax Med Refill Been without all his medications x2 months. Est PCP Recently moved [place] o [place] from [place]. Wants to set new PCP. [...] Bod y mass index (BMI) 35.0-35.9, adult ??? Follow [...] need refills. Related to Essential (primary) hypertension ??? Continue all you r medications as [...] Bod y mass index (BMI) 35.0-35.9, adult ??? Prescriptions (losartan/hydrochlorothiazide) were written for you today. They were sent electronically to your pharmacy Related to Essential (primary) hypertension ??? Prescriptions (m etformin) were written for you today. They were sent electronically to your pharmacy Related to Type 2 diabetes mellitus without complications ??? 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 Related to GERD - Gastro-esophageal reflux disease [...] hypertension ER evaluation to rul e out IA verses anxiety. Related to Angina Discussed the [...]
== END 2024-08-20 17:23 | disposition home or self-care (01) ==
LOC: HO.HMCH 16:31
PROVIDERS: PCP Internal Medicine; Visit Provider Internal Medicine
DX: E11.65 Type 2 diabetes mellitus with hyperglycemia (principal)

== ENCOUNTER → 2024-08-20 16:31 | Outpatient (BNVA) | payer OTHER, SELFPAY | PROVIDERS: PCP Internal Medicine; Visit Provider Internal Medicine | DX: Z00.00 Encounter for general adult medical examination without abnormal findings (principal); E11.65 Type 2 diabetes mellitus with hyperglycemia; E78.00 Pure hypercholesterolemia, unspecified; I10 Essential (primary) hypertension; K21.9 Gastro-esophageal reflux disease without esophagitis; E55.9 Vitamin D deficiency, unspecified; J98.8 Other specified respiratory disorders; M65.30 Trigger finger, unspecified finger; N52.9 Male erectile dysfunction, unspecified; E66.9 Obesity, unspecified; F17.210 Nicotine dependence, cigarettes, uncomplicated; Z79.899 Other long term (current) drug therapy | CPT/HCPCS: 83036; 96127 ==

== ENCOUNTER 2024-12-14 06:59 | Outpatient (REF) | payer OTHER, SELFPAY ==
[2024-12-14 07:11] LABS: MANUAL DIFF FLAG NO
[2024-12-14 07:37] LABS: Hematocrit 50.2 % (42.0-52.0); Hemoglobin 17.3 g/dl (14.0-18.0); Imm Gran Abs Auto 0.02 X10*3/uL (0.00-0.03); Imm Gran Pct Auto 0.3 % (0.0-0.4); Lymphocytes Absolute Auto 1.3 X10*3/uL (1.2-4.9); Mean Corpuscular HGB Conc 34.5 g/dl (31.0-36.0); Mean Corpuscular Hemoglobin 30.5 pg (27.0-33.0); Mean Corpuscular Volume 88.4 fL (80.0-98.0); NRBC Abs Auto 0.000 X10*3/uL (0.0-0.012); NRBC Pct Auto 0.0 /100WBC (0.0-0.2); Platelet Count 251 X10*3/uL (160-400); Red Blood Count 5.68 X10*6/uL (4.60-5.80); White Blood Count 5.9 X10*3/uL (4.8-10.8)
[2024-12-14 07:43] LABS: Appearance Urine Clear; Glucose Urine UA >=1000 mg/dL (Negative); PH 5.5 (5.0-9.0); Specific Gravity - Urine >= 1.030 (1.005-1.025); UMIC TRIGGER UACC YES
[2024-12-14 07:44] LABS: Hemoglobin A1C 351.6714 umol/L; Total Hemoglobin (HGBA1C) 4577.6803 umol/L
[2024-12-14 08:09] LABS: Alanine Aminotransferase 32 U/L (0-40); Albumin Level 4.2 g/dL (3.5-5.0); Alkaline Phosphatase 122 U/L (39-117); Anion Gap 12 (12-20); Aspartate Amino Transferase 22 U/L (5-37); Blood Urea Nitrogen 13 mg/dL (9-16); Calcium 8.8 mg/dL (8.4-10.2); Carbon Dioxide 29 mmol/L (22-29); Chloride 107 mmol/L (96-108); Cholesterol 213 mg/dL (<200); Estimated Glomerular Filt Rate > 60; HDL Cholesterol 64 mg/dL (>40); Potassium 3.7 mmol/L (3.3-5.1); Sodium 144 mmol/L (135-145); Total Protein 7.0 g/dL (6.5-8.0); Triglycerides 99 mg/dL (<150)
== END 2024-12-14 07:00 | disposition home or self-care (01) ==
LOC: HO.LAB 06:59
PROVIDERS: PCP Internal Medicine; Visit Provider Internal Medicine
DX: Z00.00 Encounter for general adult medical examination without abnormal findings (principal); Z12.5 Encounter for screening for malignant neoplasm of prostate; E11.9 Type 2 diabetes mellitus without complications; R30.0 Dysuria; E55.9 Vitamin D deficiency, unspecified; E78.00 Pure hypercholesterolemia, unspecified; D64.9 Anemia, unspecified
CPT/HCPCS: 36415; 80053; 80061; 81001; 82043; 82306; 82570; 83036; 84153; 84443; 85025

== ENCOUNTER 2024-12-17 16:36 | Outpatient (AMB) | payer OTHER, SELFPAY ==
--- NOTE | 2024-12-17 16:39 | A.OFFPC_ITS ---
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: No Accompanied by: Self / Same As Patient Allergies aspirin (Aspirin) Allergy (Unknown, Verified 12/17/24 17:09) UNKNOWN lisinopril Allergy (Unknown, Verified 12/17/24 17:09) Cough penicillin V Allergy (Unknown, Verified 12/17/24 17:09) unknown Penicillins Allergy (Unknown, Verified 12/17/24 17:09) UNKNOWN metformin Adverse Reaction (Intermediate, Verified 12/17/24 17:09) Diarrhea Medication List - Last Reconciled 12/17/24 by Gregorio Bhatt MD atorvastatin 10 mg PO BEDTIME blood-glucose meter (FreeStyle Lite Meter kit) As directed cholecalciferol (vitamin D3) 50 mcg PO DAILY 90 days cyclobenzaprine 5 mg PO Q8H PRN 5 days Farxiga (dapagliflozin propanediol) 10 mg PO QAM 90 days NS glipizide ER 5 mg PO DAILY Held on 04/13/24. Instructions: Doctor's Order ibuprofen 600 mg PO Q6H PRN lancets (FreeStyle Lancets) As directed once a day lidocaine 5% (Lidoderm) 1 patch topical DAILY PRN MDD remove after 12 hours losartan 50 mg PO DAILY metformin ER 500 mg PO DAILY 90 days omeprazole 20 mg PO DAILY sildenafil 50 mg PO DAILY PRN Tobacco use date assessed: 12/17/24 Dental Screening Dental Screen Date: 12/17/24 Did you have a dental visit in the last 12 months?: No Did you have a dental problem in the last 6 months where you did not have access to dental care?: No Was dental information given to patient?: Patient has dentist HPI 4 month f/u HPI Details Patient comes in today for his follow up visit States that he feels okay but reports that he feels tired often lately He denies any headaches or dizziness Denies any chest pains, no SOB No nausea/vomiting, no abdominal pain No change in bowel habits noted He had his follow up labs done a few days ago - to discuss his results [facility] Medical History Vitamin D deficiency Smoker Pure hypercholesterolemia GERD without esophagitis Obesity (BMI 30-39.9) Benign essential hypertension Diabetes mellitus Surgical History Hx of colonoscopy History of esophagogastroduodenoscopy (EGD) History of carpal tunnel surgery Family History Mother Diabetes BP (high blood pressure) Brother Myocardial infarction, Onset Age: 41 Father No problems noted. Maternal Grandmother Cancer Sister No problems noted. Son In good health Son In good health Social History Housing: Apartment Alcohol intake: current Alcohol intake frequency: a few times a month Patient Tobacco Use Status: Former Tobacco user Tobacco use type: Cigarette and Smokeless Tobacco Cigarette Packs Per Day: 0.25 Cigarettes Per Day: 5 e-Cigarette/Vaping Use: Never Used Second Hand Smoke Exposure: Yes Advance Directives Date on File: 07/24/20 service: No Current occupational status: employed Current occupational exposures/hazards: No Cognitive needs: No Hearing needs: No Vision needs: Yes (glasses) Questionnaire PHQ-9 Over the last 2 weeks, how often have you been bothered by any of the following problems? 1. Little interest or pleasure in doing things: not at all 2. Feeling down, depressed, or hopeless: not at all 3. Trouble falling or staying asleep, or sleeping too much: not at all 4. Feeling tired or having little energy: nearly every day 5. Poor appetite or overeating: not at all 6. Feeling bad about yourself - or that you are a failure or have let yourself or your family down: not at all 7. Trouble concentrating on things, such as reading the newspaper or watching television: not at all 8. Moving or speaking so slowly that other people could have noticed. Or the opposite - being so fidgety or restless that you have been moving around a lot more than usual: not at all 9. Thoughts that you would be better off or of hurting yourself in some way: not at all Total score: 3 Depression Screening Interpretation: Positive Depression Screening Follow-up: Existing condition and In treatment Depression Screening Done: Yes 93900 - PHQ-9 Billing: Yes Source: Developed by Drs. Alec Delcid, Jerrica Arriaga, Gerry Carreon and colleagues, with an educational stephanie from [employer]. Thrive Questionnaire Date Thrive assessed: 12/17/24 I am a: Patient What is your living situation today?: I choose not to answer this question Within the past 12 months, did the food you bought not last and you didn't have the money to get more?: I choose not to answer this question Within the past 12 months, did you worry whether your food would run out before you got money to buy more?: I choose not to answer this question Do you have trouble paying for medicines?: I choose not to answer this question Do you have trouble getting transportation to medical appointments?: I choose not to answer this question Do you have trouble paying your heating and electricity bill?: I choose not to answer this question Do you have trouble taking care of your child, family member or friend?: I choose not to answer this question Do you have trouble with day-to-day activities such as bathing, preparing meals, shopping, managing finances, etc.?: I choose not to answer this question Are you currently unemployed and looking for a job?: I choose not to answer this question Are you interested in more education?: I choose not to answer this question Please select the resources that you would like help with: None Currently or been in a relationship where the following occur: No concerns reported THRIVE Score: 0 AUDIT C Alcohol Use Questionnaire (AUDIT-C) 1. How often do you have a drink containing alcohol?: 2-4 times a month 2. How many drinks containing alcohol do you have on a typical day when you are drinking?: 1 or 2 3. How often do you have six or more drinks on one occasion?: Never Total Score: 2 Score Reviewed/Action Taken: Yes YOAV-7 AMB Questionnaire YOAV-7 Date YOAV - 7 assessed: 12/17/24 Feeling nervous, anxious, or on edge: 0 = Not at all Not being able to stop or control worryin = Not at all Worrying too much about different things: 0 = Not at all Trouble relaxin = Not at all Being so restless that it is hard to sit still: 0 = Not at all Becoming easily annoyed or irritable: 0 = Not at all Feeling afraid as if something awful might happen: 0 = Not at all Total YOAV-7 score (0-4 normal; 5-9 mild; 10-14 moderate; 15-21 severe): 0 Source: Developed by Drs. Alec Delcid, Jerrica Arriaga, Gerry Carreon and colleagues, with an educational stephanie from [employer]. Review of Systems Const Denies chills, Reports fatigue, Denies fever(s) and Denies headache(s) ENT Denies dysphagia, Denies dizziness, Denies otalgia, Denies headache(s), Denies neck pain, Denies odynophagia and Denies sore throat Card Denies chest pain, Denies rapid heart rate, Denies irregular heart rhythm, Denies palpitations and Denies dyspnea Resp Denies chest congestion, Denies cough and Denies dyspnea GI Denies abdominal pain, Denies constipation, Denies dysphagia, Denies heartburn, Denies diarrhea, Denies nausea, Denies odynophagia and Denies vomiting Denies difficulty urinating, Denies dysuria, Reports nocturia and Reports urinary frequency Musc Denies back pain, Denies arthralgias, Denies neck pain and Reports stiffness (on and off in the left hand - see HPI) Skin/Breast Denies rash Neuro Denies dizziness, Denies headache(s) and Denies paresthesias Endo Reports fatigue and Denies palpitations Physical exam (Primary Care) Vital Signs: Last Vital Signs Pulse 83 12/17/24 16:40 BP 124/82 12/17/24 16:40 Pulse Ox 97 12/17/24 16:40 Oxygen Delivery Method Room Air 12/17/24 16:40 BMI result Body Mass Index 31.8 Tobacco/Smoking Status: Tobacco use Status Tobacco use date assessed 12/17/24 12/17/24 16:46 Patient Tobacco Use Status Former Tobacco user 12/17/24 16:46 Tobacco use type Cigarette,Smokeless Tobacco 12/17/24 16:46 e-Cigarette/Vaping Use Never Used 12/17/24 16:46 PHQ-9: PHQ-9 Score PHQ-9: Total score 3 12/17/24 17:11 Depression Screening Interpretation: Positive Depression Screening Follow-up: Existing condition and In treatment Thrive Assessment: Date of Thrive Assessment Date Thrive assessed 12/17/24 12/17/24 16:46 Currently or been in a relationship where the following occur: No concerns reported Const General: no acute distress and alert HENMT Ears: TM's normal bilaterally and EAC's normal Throat: Yes posterior oropharynx normal and Yes tonsils normal (no TP conge stion) Neck Neck: Yes supple and No lymphadenopathy Thyroid: Thyroid normal Resp Auscultation: clear to auscultation bilaterally, no rales and no wheezes Cardio Rate: regular rate Rhythm: regular rhythm Heart sounds: no murmurs GI Palpation (GI): Soft to palpation and nontender Auscultation: normal bowel sounds General: Yes no CVA tenderness Back/Spine/Pelvis Back: no CVA tenderness Thoracic/Lumbar Spine: No lumbar spinal tenderness Skin Rashes: no rashes Extrem General: Yes no clubbing, cyanosis or edema Results Reviewed Results Reviewed: Laboratory Tests 07/31/24 12/14/24 12/14/24 11:16 07:05 07:09 WBC 4.3 L 5.9 Hgb 17.1 17.3 Hct 47.8 50.2 Plt Count 223 251 Sodium 138 144 Potassium 3.7 3.7 Creatinine 0.89 0.88 Estimated GFR > 60 > 60 Random Glucose 353 H* Fasting Glucose 169 H Hemoglobin A1c % 9.2 H Calcium 8.8 AST 22 ALT 32 Triglycerides 99 Cholesterol 213 H LDL Cholesterol, Calc 130 H HDL Cholesterol 64 PSA Screen 2.03 25-OH Vitamin D Total 25.4 L TSH 1.75 Ur Specific [place] >= 1.030 H Urine Protein Negative Urine Glucose (UA) >=1000 H Urine Blood Negative Urine Nitrite Negative Ur Leukocyte Esterase Negative Coding Level of Care Code Est Pt Level 4 (19078) Complex EM visit Add On G2211 Diagnoses Type 2 diabetes mellitus with hyperglycemia, without long-term current use of insulin E11.65 Diabetes mellitus complication status: with hyperglycemia 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: without remote computer terminal operator use Diabetes mellitus type: type 2 Pure hypercholesterolemia E78.00 Benign essential hypertension I10 GERD without esophagitis K21.9 Vitamin D deficiency E55.9 Trigger finger of left hand, unspecified finger M65.30 Trigger finger location: unspecified finger Erectile dysfunction, unspecified erectile dysfunction type N52.9 Erectile dysfunction type: unspecified Smoker F17.200 Obesity (BMI 30-39.9) E66.9 Additional Codes PHQ-9 - 44627 - PHQ-9 Billing: Yes ([id number]) Assessment & Plan Assessment & Plan (1) Diabetes mellitus: Code(s): E11.9 - Type 2 diabetes mellitus without complications Category: Medical Qualifiers: Diabetes mellitus complication status: with hyperglycemia Diabetes mellitus mcc insulin use: without mcc use Diabetes mellitus type: type 2 Qualified Code(s): E11.65 - Type 2 diabetes mellitus with hyperglycemia Plan: His HgbA1c was at 9.2% on his labs done a few days ago (in-office HgbA1c was previously at 8.9% a few months ago) - goal is < 7.0% Reinforced diabetic diet Continue Metformin 500 mg QD (he has diarrhea when Metformin was increased to more than QD dosing) and Farxiga 10 mg QD His Glipizide 5 mg QD was HELD at his last visit in April 2024 as patient was apparently experiencing some hypoglycemic episodes at the time but his diabetes control appears to have gotten significantly worse since Will go ahead and start him additionally again on Glipizide 5 mg QD (2) Pure hypercholesterolemia: Code(s): E78.00 - Pure hypercholesterolemia, unspecified Category: Medical Plan: Results of his labs done a few days ago reviewed and discussed with patient - these have increased significantly from his previous numbers late last year and his LDL cholesterol is now at 130 mg/dL Reinforced low cholesterol diet Continue Atorvastatin 10 mg QD for now Will recheck his labs and fasting lipids in 3 months for follow up and patient is advised that if his cholesterol numbers do not improve significantly over the next few months, we will need to increase the dose of his cholesterol medication at his next follow-up visit (3) Benign essential hypertension: Code(s): I10 - Essential (primary) hypertension Category: Medical Plan: Reinforced low sodium diet - goal is systolic BP of at least 120 to 130 mm or less Continue Losartan 50 mg QD Patient is reminded to continue monitoring his blood pressure regularly (4) GERD without esophagitis: Code(s): K21.9 - Gastro-esophageal reflux disease without esophagitis Category: Medical Plan: Dietary restrictions reinforced Continue Omeprazole 20 mg QD (5) Vitamin D deficiency: Code(s): E55.9 - Vitamin D deficiency, unspecified Category: Medical Plan: Continue Vitamin D3 2000 units QD (6) Trigger finger of left hand: Code(s): M65.30 - Trigger finger, unspecified finger Category: Medical Qualifiers: Trigger finger location: unspecified finger Qualified Code(s): M65.30 - Trigger finger, unspecified finger Plan: We previously sent him for x-rays of the left hand at his last visit for further evaluation patient did not get these done States that his finger is feeling better at this time and he would like to hold off on further testing (7) Erectile dysfunction: Code(s): N52.9 - Male erectile dysfunction, unspecified Category: Medical Qualifiers: Erectile dysfunction type: unspecified Qualified Code(s): N52.9 - Male erectile dysfunction, unspecified Plan: Continue Sildenafil 50 mg QD PRN (8) Smoker: Code(s): F17.200 - Nicotine dependence, unspecified, uncomplicated Category: Social Hx Plan: Patient is counseled again on complete smoking cessation (9) Obesity (BMI 30-39.9): Code(s): E66.9 - Obesity, unspecified Category: Medical Plan: Reinforced diet/exercise as tolerated/lose weight Plan Follow-up in 3 months Orders: Orders Comprehensive [facility]. Panel Fast 3 Months E78.00 - Pure hypercholesterolemia, unspecified Lipid Panel 3 Months E78.00 - Pure hypercholesterolemia, unspecified Microalbumin, Random (w Creat) 3 Months E11.9 - Type 2 diabetes mellitus without complications UA CC w/rflx Micro + Cult 3 Months R30.0 - Dysuria Vitamin D 25-OH Total 3 Months E55.9 - Vitamin D deficiency, unspecified C Peptide 3 Months E11.9 - Type 2 diabetes mellitus without complications Glutamic acid decarboxylase Ab 3 Months E11.9 - Type 2 diabetes mellitus without complications Complete Blood Count Auto Diff 3 Months D64.9 - Anemia, unspecified Hemoglobin A1c 3 Months E11.9 - Type 2 diabetes mellitus without complications TSH reflex Free T4 3 Months E78.00 - Pure hypercholesterolemia, unspecified Vitamin B12 and Folate 3 Months E53.8 - Deficiency of other specified B group vitamins Medications: Resumed glipizide ER 5 mg PO DAILY 90 tabs 1RF E11.65 - Type 2 diabetes mellitus with hyperglycemia glipizide ER 5 mg PO DAILY 90 tabs 1RF E11.65 - Type 2 diabetes mellitus with hyperglycemia
--- OUTSIDE RECORDS SUMMARY | 2024-12-17 16:39 | XMS_ITS | Clinical Summary ---
Author Organization [facility] Address [address] [place] [address] Care Team Providers Care Guide Delegate Name Role Phone Unavailable Primary Care Provider Unavailabl e Social History Tobacco Use Types Packs/Day Years Used Date Smoking Tobacco: Never Assessed Sex and Gender Information Value Date Recorded Sex Assigned at Not on file Legal Sex Male 4:39 PM EDT Gender Identity Not on file Sexual Orientation Not on file Plan of Treatment Health Maintenance Due Date Last Done Comments Hepatitis C Virus Screening 1972 HIV Screening 01/01/1985 DTaP/Tdap/Td Vaccines (1 - Tdap) 01/01/1991 Hepatitis B Vaccines (1 of 3 - 19+ 3-dose series) 12/08 Pneumococcal Vaccines 50+ (1 of 1 - PCV) 01/01/2022 Zoster (Shingles) Vaccine (1 of 2) 01/01/2022 COVID-19 Vaccine (1 - 2023- season) 2024
--- OUTSIDE RECORDS SUMMARY | 2024-12-17 16:39 | XMS_ITS | Clinical Summary ---
Author Organization [facility] Address [address] [place] [address] Care Team Providers Care Quiller Tender Name Role Phone Pcp, [facility] Primary Care Provider [phone] Allergies Active Allergy Reactions Criticality Noted Date [...] 70 12/01/2014 12:29 PM EDT Temperature 36.8 C (98.3 F) 12/01/2014 12:29 PM EDT Respiratory Rate 16 12/01/2014 12:29 PM EDT [...] (1 of 2) 01/01/2022 Influenza Vaccine (#1) 2025 Pneumococcal Vaccine Aged Out No long er eligible based on patient's age to complete this topic RSV Ped < 20 months Aged Out No longe r eligible based on patient's age to complete this topic Care Teams Quiller Tender Relationship Specialty Start Date End Date Pcp, MD Cyril [address] [place] [address] PCP - General Machine Turner 11/06/14
[2024-12-17 16:40] VITALS: BP 124/82; PULSE 83; O2SAT 97; BMI 31.8
== END 2024-12-17 17:19 | disposition home or self-care (01) ==
LOC: HO.HMCH 16:37
PROVIDERS: PCP Internal Medicine; Visit Provider Internal Medicine
DX: E11.65 Type 2 diabetes mellitus with hyperglycemia (principal); E78.00 Pure hypercholesterolemia, unspecified; E66.9 Obesity, unspecified; Z68.31 Body mass index [BMI] 31.0-31.9, adult; I10 Essential (primary) hypertension; K21.9 Gastro-esophageal reflux disease without esophagitis; E55.9 Vitamin D deficiency, unspecified; M65.322 Trigger finger, left index finger; N52.9 Male erectile dysfunction, unspecified; F17.200 Nicotine dependence, unspecified, uncomplicated

== ENCOUNTER → 2024-12-17 16:36 | Outpatient (BNVA) | payer OTHER, SELFPAY | PROVIDERS: PCP Internal Medicine; Visit Provider Internal Medicine | DX: E11.65 Type 2 diabetes mellitus with hyperglycemia (principal); E78.00 Pure hypercholesterolemia, unspecified; I10 Essential (primary) hypertension; K21.9 Gastro-esophageal reflux disease without esophagitis; E55.9 Vitamin D deficiency, unspecified; M65.30 Trigger finger, unspecified finger; N52.9 Male erectile dysfunction, unspecified; E66.9 Obesity, unspecified; F17.210 Nicotine dependence, cigarettes, uncomplicated; Z68.31 Body mass index [BMI] 31.0-31.9, adult | CPT/HCPCS: 96127 ==

== ENCOUNTER → 2025-02-08 11:08 | Outpatient (BNVA) | payer OTHER, SELFPAY | PROVIDERS: Visit Provider Internal Medicine | DX: S67.192A Crushing injury of right middle finger, initial encounter (principal); S67.194A Crushing injury of right ring finger, initial encounter; W23.2XXA Caught, crushed, jammed or pinched between a moving and stationary object, initial encounter | CPT/HCPCS: 73130; 99203 ==

== ENCOUNTER 2025-03-27 07:17 | Outpatient (REF) | payer OTHER, SELFPAY ==
[2025-03-27 07:36] LABS: MANUAL DIFF FLAG NO
[2025-03-27 08:03] LABS: Hematocrit 48.3 % (42.0-52.0); Hemoglobin 17.0 g/dl (14.0-18.0); Imm Gran Abs Auto 0.02 X10*3/uL (0.00-0.03); Imm Gran Pct Auto 0.4 % (0.0-0.4); Lymphocytes Absolute Auto 1.4 X10*3/uL (1.2-4.9); Mean Corpuscular HGB Conc 35.2 g/dl (31.0-36.0); Mean Corpuscular Hemoglobin 30.8 pg (27.0-33.0); Mean Corpuscular Volume 87.5 fL (80.0-98.0); NRBC Abs Auto 0.000 X10*3/uL (0.0-0.012); NRBC Pct Auto 0.0 /100WBC (0.0-0.2); Platelet Count 259 X10*3/uL (160-400); Red Blood Count 5.52 X10*6/uL (4.60-5.80); White Blood Count 5.4 X10*3/uL (4.8-10.8)
[2025-03-27 08:22] LABS: Appearance Urine Clear; Glucose Urine UA 500 mg/dL (Negative); PH 5.0 (5.0-9.0); Specific Gravity - Urine >= 1.030 (1.005-1.025)
[2025-03-27 08:37] LABS: Alanine Aminotransferase 33 U/L (0-40); Albumin Level 4.3 g/dL (3.5-5.0); Alkaline Phosphatase 116 U/L (39-117); Anion Gap 13 (12-20); Aspartate Amino Transferase 24 U/L (5-37); Blood Urea Nitrogen 16 mg/dL (9-16); Calcium 8.9 mg/dL (8.4-10.2); Carbon Dioxide 25 mmol/L (22-29); Chloride 104 mmol/L (96-108); Cholesterol 162 mg/dL (<200); Estimated Glomerular Filt Rate > 60; HDL Cholesterol 60 mg/dL (>40); Potassium 3.8 mmol/L (3.3-5.1); Sodium 138 mmol/L (135-145); Total Protein 7.2 g/dL (6.5-8.0); Triglycerides 121 mg/dL (<150)
[2025-03-27 09:05] LABS: Microalbum/Creatinine Ratio Ur 8.3 ug/mg cr (<30)
[2025-03-27 09:12] LABS: Folate 10.6 ng/mL (> or = 4.0); Vitamin B12 498 pg/mL (200-900)
--- OUTSIDE RECORDS SUMMARY | 2025-03-27 15:03 | XMS_ITS | Clinical Summary ---
Author Organization [facility] Address [address] [place] [address] Care Team Providers Care Ghost Writer Name Role Phone Unavailable Primary Care Provider [...] of 2) 01/01/2022 COVID-19 Vaccine (1 - season) 2025 RSV Vaccine 50 years and old er and Patients (1 - 1-dose 75+ series) 01/01/2047
== END 2025-03-27 07:18 | disposition home or self-care (01) ==
LOC: HO.LAB 07:17
PROVIDERS: PCP Internal Medicine; Visit Provider Internal Medicine
DX: E11.65 Type 2 diabetes mellitus with hyperglycemia (principal); E78.00 Pure hypercholesterolemia, unspecified; R30.0 Dysuria; E53.8 Deficiency of other specified B group vitamins; E55.9 Vitamin D deficiency, unspecified; Z13.39 Encounter for screening examination for other mental health and behavioral disorders; Z13.31 Encounter for screening for depression
CPT/HCPCS: 36415; 80053; 80061; 81003; 82043; 82306; 82570; 82607; 82746; 83036; 84443; 84681; 85025; 86341; 96127

== ENCOUNTER 2025-03-27 16:15 | Outpatient (AMB) | payer OTHER, SELFPAY ==
--- OUTSIDE RECORDS SUMMARY | 2016-11-01 10:10 | XMS_ITS | Continuity of Care Document ---
Author Organization [facility] vices Address [address] [place] [address] Phone Care Team Providers Care Gardening Manager Name Role Phone Jacob Cain APRN Unavailable Unavailab le Allergies, Adverse Reactions, Alerts Substance Reaction Status Criticality Penicillins Unknown Active No Information aspirin Unknown Active No Information Medications Medication Instructions Dosage Effective Dates (start - stop) Status Comments pantoprazole 40 mg tablet,delayed release take 1 tablet by oral route every day 40 MG - Active metformin 500 mg tablet TAKE 1 TABLET BY ORAL ROUTE 2 TIMES EVERY DAY WITH MORNING AND EVENING MEALS 500 MG - Active Lancets,Ultra Thin 26 gauge Use to test blood sugar at least twice daily. 250.02 - Active E11.9 OneTouch Ultra Test strips take 1 by Subcutaneous route 2 times every day 1 - Active E11.9 OneTouch Delica Lancing Device kit use as directed - Active E11.9 OneTouch Ultra2 kit inject 1 by Subcutaneous route 2 times every day 1 - Active E11.9 losartan 100 mg-hydrochlorothia zide 25 mg tablet take 1 tablet by oral route every day 1.00 tablet - Active blood pressure monitor kit apply by arm route as directed Not Available - Active I10 -- electronic/au tomatic fluticasone 50 mcg/actuation nasal spray,suspension inhale 1 spray by intranasal route every day in each nostril 50 MCG - Active Procedures Procedure Date GLUCOSE BLOOD TEST OFFICE/OUTPATIENT VISIT, NEW GLUCOSE BLOOD TEST OFFICE/OUTPATIENT VISIT, EST Prophylaxis-Adult Oral Hygiene Instructions Bitewings-Four Films Intraoral-Periapical First Film 017 Intraoral-Periapical Each Additional German m GLUCOSE BLOOD TEST GLYCATED HEMOGLOBIN TEST (A1C) 17 OFFICE/OUTPATIENT VISIT, EST IMMUNIZATION ADMIN HEP B VACCINE, ADULT, IM OFFICE/OUTPATIENT VISIT, EST GLUCOSE BLOOD TEST IMMUNIZATION ADMIN FLU VACCINE, 3 YRS & >, IM OFFICE/OUTPATIENT VISIT, NEW Advance Directives Directive Yes / No Effective Date File Name No Information Encounters Encounter Description Practice Location Reason(s) For Visit Diagnoses Date Provider Providers Copied on Encounter [facility], [address] [place] [address], [facility], [place] tel:[phone] [facility] Adult Medicine No Information [facility]. [address] [place] [address], [id number] [place], [address], [place]. tel:[phone] OFFICE/OUTPA TIENT VISIT, [facility], [address] [place] [address], [facility], tel:[phone] [facility] Podiatry Diabetic Foot Exam (chief complaint) Body mass index (BMI) 35.0-35.9, adultEncounter for screening for diabetes mellitusType 2 diabetes mellitus without complications 7 No Information OFFICE/OUTPA TIENT VISIT, [facility], [address] [place] [address], [facility], [place] tel:[phone] [facility] Adult Medicine Ken Routine follow up visit (chief complaint)C hronic Conditions (chief complaint) Body mass index (BMI) 35.0-35.9, adultEncounter for screening for diabetes mellitusEncounte r for general adult medical examination without abnormal findingsType 2 diabetes mellitus without complicationsEss ential (primary) hypertensionObst ructive sleep apnea (adult) (pediatric) 7 No Information [facility], [address] [place] [address], [facility], tel:[phone] [facility] Dental Encounter for dental exam and cleaning w/o abnormal findings Bart Garcia. [address] [facility], [id number] [place], [place], [id number], . tel:[phone] OFFICE/OUTPA TIENT VISIT, [facility], [address] [place] [address], [address], tel:[phone] [facility] Adult Medicine Ken Establish Care (chief complaint)A bdominal lumps (chief complaint)C hronic Conditions (chief complaint) Body mass index (BMI) 35.0-35.9, adultEncounter for screening for diabetes mellitusEncounte r for screening, unspecifiedEncou nter for general adult medical examination without abnormal findingsObstruct rosario sleep apnea (adult) (pediatric)Gastr o-esophageal reflux disease without esophagitisType 2 diabetes mellitus without complicationsEss ential (primary) hypertension 7 No Information OFFICE/OUTPA TIENT VISIT, [facility], [address] [place] [address], [address], tel:[phone] [facility] Adult Medicine Chest Pain (chief complaint)M ed Refill (chief complaint)L ab Results (chief complaint)d iabetes (chief complaint) AnginaUnspecifie d essential hypertensionDiab etes mellitus without mention of complication, type II or unspecified type, not stated as uncontrolledGERD - Gastro-esophagea l reflux diseaseUnspecifi ed sleep apneaVaccination against viral hep 5 No Information OFFICE/OUTPA TIENT VISIT, [facility], [address] [place] [address], [address], [place] tel:[phone] [facility] Adult Medicine Est PCP (chief complaint) DiabetesHTN 4 No Information Family History Family Member Type Diagnosis Age At Onset No Information Immunizations Vaccine Date Status Comments Hep B (adult) administered Source: New Im munization Record Flu (split) (3 yrs or older) administered Note: VIS given to patient. ; Source: New Immunization Record Payers Payer name Insurance type Covered green party ID Authoriza tion(s) CHN Husky D [id number] Jarred Hopper [id number] Jarred Hopper [id number] Social History Type Description Quantity Date Captured Comments Sex Male Smoking Status No Information Chief Complaint And Reason For Visit No Information Reason For Referral Reason For Referral No Information Plan Of Treatment Date Type Action Status Goal Dietary manageme nt education, guidance, and counseling completed Goal Dietary manageme nt education, guidance, and counseling completed Goal Dietary manageme nt education, guidance, and counseling completed Referral Referred To: sleep study Ordered: Referrals: sleep study. Evaluate and treat ordered Patient Education Gastroesophageal Reflux Disease (GERD) completed History Of Present Illness Encounter Date Complaint History Of Prese nt Illness Diabetic Foot Exam The symptoms are reported as being moderate. Initial visit. No complaints. Routine follow up visit Chronic Conditions *See Chronic Conditions HPI Chronic Conditions *See Chronic Conditions HPI Establish Care Abdominal lumps Med Refill Been without all his medications x2 months. Lab Results A1c 7.8%Needs Vi tamin D supplementNeeds Hep B vax Chest Pain The patient pres ents with a complaint of Chest Pain. The symptoms began 3 days ago. The patient also complains of dyspnea, fatigue and palpitations. The patient denies nausea and vomiting. Relevant history for this patient excludes tobacco use. The patient denies any abdominal pain, dependent edema, generalized weakness or headache. Currently without his blood pressure medications. Improved with ibuprofen. 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 C/o a lot of acid reflux. diabetes Risk factors inc lude: obesity. Patient did not use medication. Other compliance information: Metformin 500, glipizide. Comorbidity: CAD and Hypertension. Associated symptoms include: chest pain, diarrhea, dyspnea and heartburn. Additional information: A1c greater than 7%. Been without medications.. Est PCP Recently moved t [place] from [place]. Wants to set new PCP. Have not had medications in 5 months, no insurance for 5 months. History of GERD, DM, HTN. No symptoms at this time. No other concern at this time. Wants to establish PCP to obtain and continue medicaitons. Functional Status Date Functional Assessmen t No Information Instructions Date Instruction Additional Infor amol No DM podiatric karina festations present. Follow-up 1 year / prn. Related to Type 2 diabetes mellitus without complications Weight monitoring Related to Bod y mass index (BMI) 35.0-35.9, adult Dietary management e ducation, guidance, and counseling Related to Body mass index (BMI) 35.0-35.9, adult Follow up on September 29 as scheduled Related to Obstructive sleep apnea (adult) (pediatric) Return to the Clinic if you have any problems or concerns: Return to the Clinic in 2 months to follow up on the diabetes. Related to Encounter for general adult medical examination without abnormal findings Continue all your medications as prescribed. Call or come to the Clinic if you are having any side effects or problems with your medications. Please call your pharmacy when you need refills. Related to Type 2 diabetes mellitus without complications Continue all your medications as prescribed. Call or come to the Clinic if you are having any side effects or problems with your medications. Please call your pharmacy when you need refills. Related to Essential (primary) hypertension Weight monitoring Related to Bod y mass index (BMI) 35.0-35.9, adult Dietary management e ducation, guidance, and counseling Related to Body mass index (BMI) 35.0-35.9, adult Prescriptions (metformin) were written for you today. They were sent electronically to your pharmacy Related to Type 2 diabetes mellitus without complications Prescriptions (losartan/hydrochlorothiazide) were written for you today. They were sent electronically to your pharmacy Related to Essential (primary) hypertension Prescriptions (pantoprazole) were written for you today. They were sent electronically to your pharmacy Related to Gastro-esophageal reflux disease without esophagitis Our Referral Department will contact you with an appointment information as soon as the referral has been completed. You are being referred for evaluation and treatment of sleep apnea and snoring. Related to Obstructive sleep apnea (adult) (pediatric) Laboratory studies were ordered today. Please go to the lab to have your blood drawn. Return to the Clinic if you have any problems or concerns: Return to the Clinic in about a month to review the results and follow up on the blood pressure and diabetes. Related to Encounter for general adult medical examination without abnormal findings Weight monitoring Related to Bod y mass index (BMI) 35.0-35.9, adult Dietary management e ducation, guidance, and counseling Related to Body mass index (BMI) 35.0-35.9, adult Hep B #1 today. RTC x1 month for second vaccination. Related to Vaccination against viral hep Refilled your anti-a sonia medications. See handout for suggested dietary changes. It is not desired to remain on this medication alf. Related to GERD - Gastro-esophageal reflux disease Stop GlipizideContin ue metformin - it is likely this will need to be increased. Check your sugars at home twice daily. Scripts for testing supplise You have been asked to complete the following consults:EyesPodiatryDentalNutritionEng age in regular exercise to lower blood sugar levels and promote weight loss. Your exercise goal is 30 minutes, 5 times per week. Drink plenty of water, at least 7-8 glasses per day. Please continue to monitor your home blood sugar in the morning after you wake up (fasting) and two hours after your largest meal. Bring your blood sugar meter to every appointment.Please inspect your feet daily and return if any cuts are not healing properly as you are at an increased risk of wounds.Patient Goal: lose 5 pounds in 2 months, walk for 30 minutes 5 days per weekFollow up as scheduled with Dr. Nunn. Related to Diabetes mellitus without mention of complication, type II or unspecified type, not stated as uncontrolled ER evaluation to rul e out [place] verses anxiety. Related to Angina Medications refilled today. Rela collin to Unspecified essential hypertension Discussed the import ance of taking medication as prescribed. Discussed the importance of diet and exercise on BP management. Discussed the importnace of adopting a DASH diet and physical activity 30 minutes per day most days per week. Discussed the importance of annual eye exam. Related to HTN Labs pending, medica tions refilled. Discussed the importance of taking medication as prescribed. Reviewed the signs and symptoms of hypo/hyperglycemia. Referral for eye exam, foot exam and nutrition follow up. Related to Diabetes Increase physical activity. Rela collin to Diabetes with unspecified complication, type II or unspecified type, not stated as uncontrolled Follow prescribed diet plan. Rel ated to Diabetes with unspecified complication, type II or unspecified type, not stated as uncontrolled Assessments Type Assessment Date No Information Patient Care Teams Name Effective Dates (start - stop) Status Members No Information
--- OUTSIDE RECORDS SUMMARY | 2016-11-01 10:10 | XMS_ITS | Continuity of Care Document ---
Author Organization [employer] [facility] vices Address [address] [place] [address] Phone Care Team Providers Care Collateral Analyst Name Role Phone Jacob Cain APRN Unavailable [...] Diagnoses Date Provider Providers Copied on Encounter [facility], [address] [place] [address], [facility], [place] tel:[phone] [facility] Adult Medicine No Information [facility]. [address] [place] [address], [id number] [place], [address], [place]. tel:[phone] OFFICE/OUTPA TIENT VISIT, [facility], [address] [place] [address], [facility], tel:[phone] [facility] Podiatry Diabetic Foot Exam (chief complaint) Body mass index (BMI) 35.0-35.9, adultEncounter for screening for diabetes mellitusType 2 diabetes mellitus without complications 7 No Information OFFICE/OUTPA TIENT VISIT, [facility], [address] [place] [address], [facility], [place] tel:[phone] [facility] Adult Medicine Ken Routine follow up visit (chief complaint)C hronic Conditions (chief complaint) Body mass index (BMI) 35.0-35.9, adultEncounter for screening for diabetes mellitusEncounte r for general adult medical examination without abnormal findingsType 2 diabetes mellitus without complicationsEss ential (primary) hypertensionObst ructive sleep apnea (adult) (pediatric) 7 No Information [facility], [address] [place] [address], [facility], tel:[phone] [facility] Dental Encounter for dental exam and cleaning w/o abnormal findings Bart Garcia. [address] [facility], [id number] [place], [place], [id number], . tel:[phone] OFFICE/OUTPA TIENT VISIT, [facility], [address] [place] [address], [address], tel:[phone] [facility] Adult Medicine Ken Establish Care (chief complaint)A bdominal lumps (chief complaint)C hronic Conditions (chief complaint) Body mass index (BMI) 35.0-35.9, adultEncounter for screening for diabetes mellitusEncounte r for screening, unspecifiedEncou nter for general adult medical examination without abnormal findingsObstruct rosario sleep apnea (adult) (pediatric)Gastr o-esophageal reflux disease without esophagitisType 2 diabetes mellitus without complicationsEss ential (primary) hypertension 7 No Information OFFICE/OUTPA TIENT VISIT, [facility], [address] [place] [address], [address], tel:[phone] [facility] Adult Medicine Chest Pain (chief complaint)M ed Refill (chief complaint)L ab Results (chief complaint)d iabetes (chief complaint) AnginaUnspecifie d essential hypertensionDiab etes mellitus without mention of complication, type II or unspecified type, not stated as uncontrolledGERD - Gastro-esophagea l reflux diseaseUnspecifi ed sleep apneaVaccination against viral hep 5 No Information OFFICE/OUTPA TIENT VISIT, [facility], [address] [place] [address], [address], [place] tel:[phone] [facility] Adult Medicine Est PCP (chief complaint) DiabetesHTN [...] party ID Authoriza tion(s) CHN Husky D [id number] Jarred Hopper [id number] Jarred Hopper [id number] Social History Type Description Quantity Date Captured [...] pressure medications. Improved with ibuprofen. 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 C/o a lot of acid reflux. diabetes Risk factors inc lude: obesity. Patient did not use medication. Other compliance information: Metformin 500, glipizide. Comorbidity: CAD and Hypertension. Associated symptoms include: chest pain, diarrhea, dyspnea and heartburn. Additional information: A1c greater than 7%. Been without medications.. Est PCP [place] moved [place]. Wants to set new PCP. Have not [...] not desired to remain on this medication prison. Related to GERD - Gastro-esophageal reflux disease [...] uncontrolled ER evaluation to rul e out [place] verses anxiety. Related to Angina Medications refilled [...]
--- OUTSIDE RECORDS SUMMARY | 2016-11-01 10:10 | XMS_ITS | Continuity of Care Document ---
Author Organization [facility] vices Address [address] [place] [address] Phone Care Team Providers Care Paradichlorobenzene Tender Name Role Phone Jacob Cain APRN Unavailable Unavailab le Allergies, Adverse Reactions, Alerts Substance Reaction Status Criticality Penicillins Unknown Active No Information aspirin Unknown Active No Information Medications Medication Instructions Dosage Effective Dates (start - stop) Status Comments fluticasone 50 mcg/actuation nasal spray,suspension inhale 1 spray by intranasal route every day in each nostril 50 MCG - Active blood pressure monitor kit apply by arm route as directed Not Available - Active I10 -- electronic/au tomatic losartan 100 mg-hydrochlorothia zide 25 mg tablet take 1 tablet by oral route every day 1.00 tablet - Active OneTouch Ultra2 kit inject 1 by Subcutaneous route 2 times every day 1 - Active E11.9 OneTouch Delica Lancing Device kit use as directed - Active E11.9 OneTouch Ultra Test strips take 1 by Subcutaneous route 2 times every day 1 - Active E11.9 Lancets,Ultra Thin 26 gauge Use to test blood sugar at least twice daily. 250.02 - Active E11.9 metformin 500 mg tablet TAKE 1 TABLET BY ORAL ROUTE 2 TIMES EVERY DAY WITH MORNING AND EVENING MEALS 500 MG - Active pantoprazole 40 mg tablet,delayed release take 1 tablet by oral route every day 40 MG - Active Procedures Procedure Date GLUCOSE BLOOD [...] Diagnoses Date Provider Providers Copied on Encounter [facility], [address] [place] [address], [facility], [place] tel:[phone] [facility] Adult Medicine No Information [facility]. [address] [place] [address], [id number] [place], [id number], [place]. tel:[phone] OFFICE/OUTPA TIENT VISIT, [facility], [address] [place] [address], [facility], tel:[phone] [facility] Podiatry Diabetic Foot Exam (chief complaint) Body mass index (BMI) 35.0-35.9, adultEncounter for screening for diabetes mellitusType 2 diabetes mellitus without complications 7 No Information OFFICE/OUTPA TIENT VISIT, [facility], [address] [place] [address], [facility], [place] tel:[phone] [facility] Adult Medicine Ken Routine follow up visit (chief complaint)C hronic Conditions (chief complaint) Body mass index (BMI) 35.0-35.9, adultEncounter for screening for diabetes mellitusEncounte r for general adult medical examination without abnormal findingsType 2 diabetes mellitus without complicationsEss ential (primary) hypertensionObst ructive sleep apnea (adult) (pediatric) 7 No Information [facility], [address] [place] [address], [facility], tel:[phone] [facility] Dental Encounter for dental exam and cleaning w/o abnormal findings Bart Garcia. [address] [facility], [id number] [place], [place], [id number], . tel:[phone] OFFICE/OUTPA TIENT VISIT, [facility], [address] [place] [address], [id number], tel:[phone] [facility] Adult Medicine Ken Establish Care [...] hypertension 7 No Information OFFICE/OUTPA TIENT VISIT, [facility], [address] [place] [address], [id number], tel:[phone] [facility] Adult Medicine Chest Pain (chief complaint)M ed Refill (chief complaint)L ab Results (chief complaint)d iabetes (chief complaint) AnginaUnspecifie d essential hypertensionDiab etes mellitus without mention of complication, type II or unspecified type, not stated as uncontrolledGERD - Gastro-esophagea l reflux diseaseUnspecifi ed sleep apneaVaccination against viral hep 5 No Information OFFICE/OUTPA TIENT VISIT, [facility], [address] [place] [address], [address], [place] tel:[phone] [facility] Adult Medicine Est PCP (chief complaint) DiabetesHTN 4 No Information Family History Family Member Type Diagnosis Age At Onset No Information Immunizations Vaccine Date Status Comments Hep B (adult) administered Source: New Im munization Record Flu (split) (3 yrs or older) administered Note: VIS given to patient. ; Source: New Immunization Record Payers Payer name Insurance type Covered libertarian ID Authoriza tion(s) CHN Husky D [id number] Jarred Hopper [id number] Jarred Hopper [id number] Social History Type Description Quantity Date Captured [...] as being moderate. Initial visit. No complaints. Chronic Conditions *See Chronic Conditions HPI Routine follow up visit Abdominal lumps Establish Care Chronic Conditions *See Chronic Conditions HPI Med Refill Been without all his medications x2 months. Lab Results A1c 7.8%Needs Vi tamin D supplementNeeds Hep B vax diabetes Risk factors inc lude: obesity. Patient did not use medication. Other compliance information: Metformin 500, glipizide. Comorbidity: CAD and Hypertension. Associated symptoms include: chest pain, diarrhea, dyspnea and heartburn. Additional information: A1c greater than 7%. Been without medications.. Chest Pain The patient pres ents with [...] pressure medications. Improved with ibuprofen. 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 C/o a lot of acid reflux. Est PCP Recently moved t o [place] from [place]. Wants to set new PCP. Have not [...] to Type 2 diabetes mellitus without complications Dietary management e ducation, guidance, and counseling Related to Body mass index (BMI) 35.0-35.9, adult Weight monitoring Related to Bod y mass index (BMI) 35.0-35.9, adult Return to the Clinic if you have any problems or concerns: Return to the Clinic in 2 months to follow up on the diabetes. Related to Encounter for general adult medical examination without abnormal findings Follow up on September 29 as scheduled Related to Obstructive sleep apnea (adult) (pediatric) Continue all your medications as prescribed. Call or come to the Clinic if you are having any side effects or problems with your medications. Please call your pharmacy when you need refills. Related to Essential (primary) hypertension Continue all your medications as prescribed. Call [...] Body mass index (BMI) 35.0-35.9, adult Prescriptions (losartan/hydrochlorothiazide) were written for you today. They were sent electronically to your pharmacy Related to Essential (primary) hypertension Prescriptions (metformin) were written for you today. They were sent electronically to your pharmacy Related to Type 2 diabetes mellitus without complications Prescriptions (pantoprazole) were written for you today. [...] general adult medical examination without abnormal findings Dietary management e ducation, guidance, and counseling Related to Body mass index (BMI) 35.0-35.9, adult Weight monitoring Related to Bod y mass index (BMI) 35.0-35.9, adult Hep B #1 today. RTC x1 month for second vaccination. Related to Vaccination against viral hep Refilled your anti-a sonia medications. See handout for suggested dietary changes. It is not desired to remain on this medication detention. Related to GERD - Gastro-esophageal reflux disease [...] or unspecified type, not stated as uncontrolled Medications refilled today. Rela collin to Unspecified essential hypertension ER evaluation to rul e out [place] verses anxiety. Related to Angina Discussed the import ance of taking medication [...] and nutrition follow up. Related to Diabetes Follow prescribed diet plan. Rel ated to Diabetes with unspecified complication, type II or unspecified type, not stated as uncontrolled Increase physical activity. Rela collin to Diabetes with unspecified complication, type II or unspecified type, not stated as uncontrolled Assessments Type Assessment Date No Information Patient Care Teams Name Effective Dates (start - stop) Status Members No Information
--- OUTSIDE RECORDS SUMMARY | 2016-11-01 10:10 | XMS_ITS | Continuity of Care Document ---
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, [address] [place] [address], [facility], [place] tel:[phone] [facility] Adult Medicine No Information [facility]. [address] [place] [address], [id number] [place], [address], [place]. tel:[phone] OFFICE/OUTPA TIENT VISIT, [facility], [address] [place] [address], [facility], tel:[phone] [facility] Podiatry Diabetic Foot Exam (chief complaint) Body mass index (BMI) 35.0-35.9, adultEncounter for screening for diabetes mellitusType 2 diabetes mellitus without complications 7 No Information OFFICE/OUTPA TIENT VISIT, [facility], [address] [place] [address], [facility], [place] tel:[phone] [facility] Adult Medicine Ken Routine follow up visit (chief complaint)C hronic Conditions (chief complaint) Body mass index (BMI) 35.0-35.9, adultEncounter for screening for diabetes mellitusEncounte r for general adult medical examination without abnormal findingsType 2 diabetes mellitus without complicationsEss ential (primary) hypertensionObst ructive sleep apnea (adult) (pediatric) [address] [facility], [address] [place] [address], [facility], tel:[phone] [facility] Dental Encounter for dental exam and cleaning w/o abnormal findings Bart Garcia. [address] [facility], [id number] [place], [place], [id number], . tel:[phone] OFFICE/OUTPA TIENT VISIT, [facility], [address] [place] [address], [address], tel:[phone] [facility] Adult Medicine Ken Establish Care (chief [...] hypertension 7 No Information OFFICE/OUTPA TIENT VISIT, [facility], [address] [place] [address], [id number], tel:[phone] [facility] Adult Medicine Chest Pain (chief complaint)M ed Refill (chief complaint)L ab Results (chief complaint)d iabetes (chief complaint) AnginaUnspecifie d essential hypertensionDiab etes mellitus without mention of complication, type II or unspecified type, not stated as uncontrolledGERD - Gastro-esophagea l reflux diseaseUnspecifi ed sleep apneaVaccination against viral hep 5 No Information OFFICE/OUTPA TIENT VISIT, [facility], [address] [place] [address], [id number], [place] tel:[phone] [facility] Adult Medicine Est PCP (chief complaint) [...] libertarian ID Authoriza tion(s) CHN Husky D [id number] Jarred Hopper [id number] Jarred Hopper [id number] Social History Type Description Quantity Date Captured [...] pressure medications. Improved with ibuprofen. 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 C/o a lot of acid reflux. diabetes Risk factors inc lude: obesity. Patient did not use medication. Other compliance information: Metformin 500, glipizide. Comorbidity: CAD and Hypertension. Associated symptoms include: chest pain, diarrhea, dyspnea and heartburn. Additional information: A1c greater than 7%. Been without medications.. Est PCP Recently moved [place] from [place]. Wants to set new PCP. Have not [...] not desired to remain on this medication group home. Related to GERD - Gastro-esophageal reflux disease [...] uncontrolled ER evaluation to rul e out [place] verses anxiety. Related to Angina Medications refilled [...]
--- NOTE | 2025-03-27 16:19 | MHC.PC.OV ---
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 Accompanied by: Self / Same As Patient Allergies aspirin (Aspirin) Allergy (Unknown, Verified 03/27/25 16:36) UNKNOWN lisinopril Allergy (Unknown, Verified 03/27/25 16:36) Cough penicillin V Allergy (Unknown, Verified 03/27/25 16:36) unknown Penicillins Allergy (Unknown, Verified 03/27/25 16:36) UNKNOWN metformin Adverse Reaction (Intermediate, Verified 03/27/25 16:36) Diarrhea Medication List - Last Reconciled 03/27/25 by Gregorio Bhatt MD atorvastatin 10 mg PO BEDTIME blood-glucose meter (FreeStyle Lite Meter kit) As directed cholecalciferol (vitamin D3) 50 mcg PO DAILY 90 days cyclobenzaprine 5 mg PO Q8H PRN 5 days Farxiga (dapagliflozin propanediol) 10 mg PO QAM 90 days NS glipizide ER 5 mg PO DAILY ibuprofen 600 mg PO Q6H PRN lancets (FreeStyle Lancets) As directed once a day lidocaine 5% (Lidoderm) 1 patch topical DAILY PRN MDD remove after 12 hours losartan 50 mg PO DAILY metformin ER 500 mg PO DAILY 90 days omeprazole 20 mg PO DAILY sildenafil 50 mg PO DAILY PRN Tobacco use date assessed: 03/27/25 Dental Screening Dental Screen Date: 03/27/25 Did you have a dental visit in the last 12 months?: No Did you have a dental problem in the last 6 months where you did not have access to dental care?: No Was dental information given to patient?: Patient has dentist HPI uncontrolled DM, hyperlipidemia HPI Details Patient comes in today for his follow up visit States that he feels okay He denies any headaches or dizziness Denies any chest pains, no increased shortness of breath No nausea/vomiting, no abdominal pain No change in bowel habits noted He could not get Farxiga Rx refilled for the past few weeks as his pharmacy is saying that they were supposedly not getting an approval back from us (?) He had his follow up labs done earlier today - to discuss his results [facility] Medical History Vitamin D deficiency Smoker Pure hypercholesterolemia GERD without esophagitis Obesity (BMI 30-39.9) Benign essential hypertension Diabetes mellitus Surgical History Hx of colonoscopy History of esophagogastroduodenoscopy (EGD) History of carpal tunnel surgery Family History Mother Diabetes BP (high blood pressure) Brother Myocardial infarction, Onset Age: 41 Father No problems noted. Maternal Grandmother Cancer Sister No problems noted. Son In good health Son In good health Social History Housing: Apartment Alcohol intake: current Alcohol intake frequency: a few times a month Patient Tobacco Use Status: Former Tobacco user Tobacco use type: Cigarette and Smokeless Tobacco Cigarette Packs Per Day: 0.25 Cigarettes Per Day: 5 e-Cigarette/Vaping Use: Never Used Second Hand Smoke Exposure: Yes Advance Directives Date on File: 07/24/20 service: No Current occupational status: employed Current occupational exposures/hazards: No Cognitive needs: No Hearing needs: No Vision needs: Yes (glasses) Questionnaire PHQ-9 Over the last 2 weeks, how often have you been bothered by any of the following problems? 1. Little interest or pleasure in doing things: not at all 2. Feeling down, depressed, or hopeless: not at all 3. Trouble falling or staying asleep, or sleeping too much: not at all 4. Feeling tired or having little energy: nearly every day 5. Poor appetite or overeating: not at all 6. Feeling bad about yourself - or that you are a failure or have let yourself or your family down: not at all 7. Trouble concentrating on things, such as reading the newspaper or watching television: not at all 8. Moving or speaking so slowly that other people could have noticed. Or the opposite - being so fidgety or restless that you have been moving around a lot more than usual: not at all 9. Thoughts that you would be better off or of hurting yourself in some way: not at all Total score: 3 Depression Screening Interpretation: Positive Depression Screening Follow-up: Follow-up Visit Requested Depression Screening Done: Yes 68803 - PHQ-9 Billing: Yes Source: Developed by Drs. Alec Delcid, Jerrica Arriaga, Gerry Carreon and colleagues, with an educational stephanie from [employer]. Thrive Questionnaire Date Thrive assessed: 03/27/25 I am a: Patient What is your living situation today?: I choose not to answer this question Within the past 12 months, did the food you bought not last and you didn't have the money to get more?: I choose not to answer this question Within the past 12 months, did you worry whether your food would run out before you got money to buy more?: I choose not to answer this question Do you have trouble paying for medicines?: I choose not to answer this question Do you have trouble getting transportation to medical appointments?: I choose not to answer this question Do you have trouble paying your heating and electricity bill?: I choose not to answer this question Do you have trouble taking care of your child, family member or friend?: I choose not to answer this question Do you have trouble with day-to-day activities such as bathing, preparing meals, shopping, managing finances, etc.?: I choose not to answer this question Are you currently unemployed and looking for a job?: I choose not to answer this question Are you interested in more education?: I choose not to answer this question Please select the resources that you would like help with: None Currently or been in a relationship where the following occur: I choose not to answer THRIVE Score: 0 AUDIT C Alcohol Use Questionnaire (AUDIT-C) 1. How often do you have a drink containing alcohol?: 2-3 times a week 2. How many drinks containing alcohol do you have on a typical day when you are drinking?: 1 or 2 3. How often do you have six or more drinks on one occasion?: Weekly Total Score: 6 Score Reviewed/Action Taken: Yes YOAV-7 AMB Questionnaire YOAV-7 Date YOAV - 7 assessed: 03/27/25 Feeling nervous, anxious, or on edge: 0 = Not at all Not being able to stop or control worryin = Not at all Worrying too much about different things: 0 = Not at all Trouble relaxin = Not at all Being so restless that it is hard to sit still: 0 = Not at all Becoming easily annoyed or irritable: 0 = Not at all Feeling afraid as if something awful might happen: 0 = Not at all Total YOAV-7 score (0-4 normal; 5-9 mild; 10-14 moderate; 15-21 severe): 0 Source: Developed by Drs. Alec Delcid, Jerrica Arriaga, Gerry Carreon and colleagues, with an educational stephanie from [employer]. Review of Systems Const Denies chills, Reports fatigue, Denies fever(s) and Denies headache(s) ENT Denies dysphagia, Denies dizziness, Denies otalgia, Denies headache(s), Denies neck pain, Denies odynophagia and Denies sore throat Card Denies chest pain, Denies rapid heart rate, Denies irregular heart rhythm, Denies palpitations and Denies dyspnea Resp Denies chest congestion, Denies cough and Denies dyspnea GI Denies abdominal pain, Denies constipation, Denies dysphagia, Denies heartburn, Denies diarrhea, Denies nausea, Denies odynophagia and Denies vomiting Denies difficulty urinating, Denies dysuria, Reports nocturia and Reports urinary frequency Musc Denies back pain, Denies arthralgias and Denies neck pain Skin/Breast Denies rash Neuro Denies dizziness, Denies headache(s) and Denies paresthesias Endo Reports fatigue and Denies palpitations Physical exam (Primary Care) Vital Signs: Last Vital Signs Pulse 95 03/27/25 16:20 BP 134/86 03/27/25 16:20 Pulse Ox 96 03/27/25 16:20 Oxygen Delivery Method Room Air 03/27/25 16:20 BMI result Body Mass Index 34.2 Tobacco/Smoking Status: Tobacco use Status Tobacco use date assessed 03/27/25 03/27/25 16:23 Patient Tobacco Use Status Former Tobacco user 03/27/25 16:23 Tobacco use type Cigarette,Smokeless Tobacco 03/27/25 16:23 e-Cigarette/Vaping Use Never Used 03/27/25 16:23 PHQ-9: PHQ-9 Score PHQ-9: Total score 3 03/27/25 16:46 Depression Screening Interpretation: Positive Depression Screening Follow-up: Follow-up Visit Requested Thrive Assessment: Date of Thrive Assessment Date Thrive assessed 03/27/25 03/27/25 16:23 Currently or been in a relationship where the following occur: I choose not to answer Const General: no acute distress and alert HENMT Ears: TM's normal bilaterally and EAC's normal Throat: Yes posterior oropharynx normal and Yes tonsils normal (no TP congestion) Neck Neck: Yes supple and No lymphadenopathy Thyroid: Thyroid normal Resp Auscultation: clear to auscultation bilaterally, no rales and no wheezes Cardio Rate: regular rate Rhythm: regular rhythm Heart sounds: no murmurs GI Palpation (GI): Soft to palpation and nontender Auscultation: normal bowel sounds General: Yes no CVA tenderness Back/Spine/Pelvis Back: no CVA tenderness Thoracic/Lumbar Spine: No lumbar spinal tenderness Skin Rashes: no rashes Extrem General: Yes no clubbing, cyanosis or edema Results Reviewed Results Reviewed: Laboratory Tests 12/14/24 03/27/25 03/27/25 07:09 07:27 07:34 WBC 5.4 Hgb 17.0 Hct 48.3 Plt Count 259 Sodium 138 Potassium 3.8 Creatinine 0.71 Estimated GFR > 60 Fasting Glucose 241 H Hemoglobin A1c % 9.5 H Calcium 8.9 AST 24 ALT 33 Triglycerides 121 Cholesterol 162 LDL Cholesterol, Calc 78 HDL Cholesterol 60 PSA Screen 2.03 Vitamin B12 498 25-OH Vitamin D Total 17.3 L TSH 2.03 Ur Specific [place] >= 1.030 H Urine Protein Trace Urine Glucose (UA) 500 H Urine Blood Negative Urine Nitrite Negative Ur Leukocyte Esterase Negative Microalb/Creat Ratio 8.3 Coding Level of Care Code Complex visit Add On G2211 Diagnoses Type 2 diabetes mellitus with hyperglycemia, without long-term current use of insulin E11.65 Diabetes mellitus complication status: with hyperglycemia Diabetes mellitus [facility] insulin use: without intermodal dispatcher use Diabetes mellitus type: type 2 Pure hypercholesterolemia E78.00 Benign essential hypertension I10 GERD without esophagitis K21.9 Erectile dysfunction, unspecified erectile dysfunction type N52.9 Erectile dysfunction type: unspecified Obesity (BMI 30-39.9) E66.9 Additional Codes PHQ-9 - 40948 - PHQ-9 Billing: Yes ([id number]) Assessment & Plan Assessment & Plan (1) Diabetes mellitus: Code(s): E11.9 - Type 2 diabetes mellitus without complications Category: Medical Qualifiers: Diabetes mellitus complication status: with hyperglycemia Diabetes mellitus intermodal dispatcher insulin use: without [facility] use Diabetes mellitus type: type 2 Qualified Code(s): E11.65 - Type 2 diabetes mellitus with hyperglycemia Plan: His HgbA1c was at 9.5% on his labs done earlier today (was previously at 9.2% a few months ago) - goal is < 7.0% Reinforced diabetic diet Continue Metformin 500 mg QD (he has diarrhea when Metformin was increased to more than QD dosing) and Glipizide 5 mg QD States that he has not been able to get his Farxiga for a few weeks now as his pharmacy is supposedly not getting his refills approved (?) Will send in his refills for Farxiga 10 mg QD to his local pharmacy now - patient is advised to start back on this as soon as possible (2) Pure hypercholesterolemia: Code(s): E78.00 - Pure hypercholesterolemia, unspecified Category: Medical Plan: Results of his labs done earlier today reviewed and discussed with patient - his cholesterol numbers have improved significantly from previous Reinforced low cholesterol diet Continue Atorvastatin 10 mg QD Will recheck his labs and fasting lipids in 3 months for follow up (3) Benign essential hypertension: Code(s): I10 - Essential (primary) hypertension Category: Medical Plan: Reinforced low sodium diet - goal is systolic BP of at least 120 to 130 mm or less Continue Losartan 50 mg QD Patient is reminded to continue monitoring his blood pressure regularly (4) GERD without esophagitis: Code(s): K21.9 - Gastro-esophageal reflux disease without esophagitis Category: Medical Plan: Dietary restrictions reinforced Continue Omeprazole 20 mg QD (5) Erectile dysfunction: Code(s): N52.9 - Male erectile dysfunction, unspecified Category: Medical Qualifiers: Erectile dysfunction type: unspecified Qualified Code(s): N52.9 - Male erectile dysfunction, unspecified Plan: Continue Sildenafil 50 mg QD PRN (6) Obesity (BMI 30-39.9): Code(s): E66.9 - Obesity, unspecified Category: Medical Plan: Reinforced diet/exercise as tolerated/lose weight Plan Follow-up in 3 months Orders: Orders Hemoglobin A1c 3 Months E11.9 - Type 2 diabetes mellitus without complications Lipid Panel 3 Months E78.00 - Pure hypercholesterolemia, unspecified Complete Blood Count Auto Diff 3 Months D64.9 - Anemia, unspecified TSH reflex Free T4 3 Months E78.00 - Pure hypercholesterolemia, unspecified Vitamin D 25-OH Total 3 Months E55.9 - Vitamin D deficiency, unspecified Comprehensive [place]. Panel Fast 3 Months E78.00 - Pure hypercholesterolemia, unspecified Microalbumin, Random (w Creat) 3 Months E11.9 - Type 2 diabetes mellitus without complications UA CC w/rflx Micro + Cult 3 Months R30.0 - Dysuria Medications: Refilled Farxiga (dapagliflozin propanediol) 10 mg PO QAM 90 tabs 3RF 90 days NS
[2025-03-27 16:20] VITALS: BP 134/86; PULSE 95; O2SAT 96; BMI 34.2
--- OUTSIDE RECORDS SUMMARY | 2025-03-28 04:47 | XMS_ITS | Clinical Summary ---
Author Organization [facility] Address [address] [place] [address] Care Team Providers Care Computational Theory Scientist Name Role Phone Pcp, [facility] Primary Care Provider [phone] Allergies Active Allergy Reactions Criticality Noted Date [...] age to complete this topic Care Teams Computational Theory Scientist Relationship Specialty Start Date End Date Pcp, MD [address] [place] [address] PCP - General Bid Writer 11/06/14
--- OUTSIDE RECORDS SUMMARY | 2025-03-28 04:47 | XMS_ITS | Clinical Summary ---
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
== END 2025-03-27 16:51 | disposition home or self-care (01) ==
LOC: HO.HMCH 16:16
PROVIDERS: PCP Internal Medicine; Visit Provider Internal Medicine
DX: E11.65 Type 2 diabetes mellitus with hyperglycemia (principal); E78.00 Pure hypercholesterolemia, unspecified; E66.9 Obesity, unspecified; Z68.34 Body mass index [BMI] 34.0-34.9, adult; I10 Essential (primary) hypertension; K21.9 Gastro-esophageal reflux disease without esophagitis; N52.9 Male erectile dysfunction, unspecified